=== PATIENT | female | born 1955 | race Caucasian/White ===

== ENCOUNTER → 2019-01-24 11:25 | Outpatient (CLI) | payer OTHER, SELFPAY ==
[2019-01-24 12:50] LABS: Absolute Lymphocyte Count 1.94 X10^3/uL (0.83-4.51); Absolute Neutrophil Count 2.5 X10^3/uL (2.0-7.7); Basophil# 0.02 X10^3/uL; Basophil% 0.4 % (0-1); Eosinophil# 0.21 X10^3/uL; Eosinophils% 4.1 % (0-5); Hematocrit 39.8 % (37-47); Hemoglobin 13.2 g/dL (12.0-15.0); Lymphocyte # 1.94 X10^3/ul (4.0); Lymphocyte % 38.1 % (19-41); Mean Corp Hgb Conc 33.2 g/dL (32-36); Mean Corpuscular Hgb 29.1 pg (27.0-32.0); Mean Corpuscular Volume 87.7 fL (81-99); Mean Platelet Vol. 9.5 fl (6.2-12.0); Monocyte# 0.41 X10^3/uL; Monocyte% 8.1 % (0-10); NRBC Flagged by Analyzer 0 % (0-5); Neutrophil % 49.1 % (47-70); Platelet Count 246 K/mm3 (150-450); RBC Distribution Width CV 11.6 % (11.6-14.6); RBC Distribution Width SD 37.1 fl (35.1-43.9); Red Blood Count 4.54 M/mm3 (4.2-5.4); White Blood Count 5.1 K/mm3 (4.4-11.0)
[2019-01-24 12:56] LABS: ALB/GLOB Ratio 0.9 RATIO (0.9-2.4); AST(SGOT) 19 U/L (15-37); Alanine Aminotransfer ALT/SGPT 29 U/L (13-56); Albumin, Serum 3.8 g/dL (3.2-5.0); Alkaline Phosphatase 90 U/L (45-117); Anion Gap 9 (5-15); BUN 16 mg/dL (7-18); BUN/Creat Ratio 23.7 RATIO (10-20); Calcium,Total 8.9 mg/dL (8.5-10.1); Chloride 106 mmol/L (98-107); Creatinine, Serum 0.67 mg/dL (0.55-1.02); EST Glomerular Filtration Rate 93 mL/min (>60); Est Glom Filt Rate - Afr Amer 113 mL/min (>60); Globulin 4.1 g/dL (2.2-4.2); Glucose 90 mg/dL (74-106); Potassium 4.1 mmol/L (3.5-5.1); Protein, Total 7.9 g/dL (6.4-8.2); Sodium Level 140 mmol/L (136-145); T4 Free Direct 1.09 ng/dL (0.76-1.46)
[2019-01-24 22:06] LABS: Vitamin D,25 Hydroxy 28.7 ng/mL (29.95-100.01)
== END ==
PROVIDERS: Family Provider Family Medicine; PCP Family Medicine; Visit Provider Family Medicine
DX: E03.9 Hypothyroidism, unspecified (principal); E78.5 Hyperlipidemia, unspecified; E55.9 Vitamin D deficiency, unspecified; E04.2 Nontoxic multinodular goiter
CPT/HCPCS: 36415; 80053; 82306; 84439; 84443; 85025

== ENCOUNTER → 2019-03-07 16:15 | Outpatient (CLI) | payer OTHER, SELFPAY ==
--- NOTE | 2019-03-07 16:22 | RAD_ITS ---
STUDY: X-RAY - LEFT FOOT CLINICAL: Female, 63 years old. Pain at the dorsum of the foot TECHNIQUE: 3 view(s) of the foot. COMPARISON: None. FINDINGS: There is a nondisplaced fracture involving the midshaft of the third metatarsal bone with periosteal reaction. RAD/Foot min 3 Views IMPRESSION: A healing fracture (probably stress) involving the mid shaft of the third metatarsal bone Electronically Signed: Berry Chavarria MD at 7:55 EDT Tel , Service support ,
== END ==
PROVIDERS: Family Provider Family Medicine; PCP Family Medicine
DX: M19.079 Primary osteoarthritis, unspecified ankle and foot (principal); Z82.61 Family history of arthritis; Z82.69 Family history of other diseases of the musculoskeletal system and connective tissue
CPT/HCPCS: 73630

== ENCOUNTER 2019-12-30 14:35 | Emergency (ER) | payer OTHER, SELFPAY ==
[2019-12-30 14:37] VITALS: BP 138/87; PULSE 89; RESP 16; TEMP 36.7; O2SAT 95; BMI 25.8
--- NOTE | 2019-12-30 15:04 | ED.DCSUM_ITS ---
History of Present Illness Chief Complaint: Lower Extremity Injury Informant: Patient Narrative: Patient is a 64-year-old female who presents to the emergency department for right leg swelling and bruising. She first noticed this in the past 2 to 3 days ago. She states that she has been being more active the past few days but does not remember injuring or striking the leg. She was concerned for DVT. She denies having any chest pain or shortness of breath. No history of blood clots before in the past. No family history of blood clots. There is one spot that is point tender but otherwise the calf is not sore. She does have chronic peripheral neuropathy which has not changed in her lower extremities. She denies any recent periods of prolonged immobility. No recent surgeries. He is not on any anticoagulation. She does have a 15-year distant history of breast cancer and is in remission. He denies smoking, drinking or drug use. She denies any systemic symptoms including fever/chills or nausea/vomiting. Past Medical History - Allergies and Home Meds Allergies/Adverse Reactions: Allergies DUST Allergy (Uncoded 01/13/18 09:57) Shortness of breath MOLD Allergy (Uncoded 01/13/18 09:57) Shortness of breath TREES Allergy (Uncoded 01/13/18 09:57) Shortness of breath Primary Care Physician: Torey Finch MD [Primary Care Provider] - Prior records reviewed: Yes Past Medical History: - - Hypothyroidism, history of breast cancer Surgical History: appendectomy, - - Breast lumpectomy Smoking Status: Never smoker Alcohol: None Drugs: None - Family History Maternal Family History: Family History (Last Updated 01/13/18 @ 09:29 by Ning Louis) Other Arthritis Cancer Crohns disease Diabetes Heart disease High cholesterol Hx of stroke associated with blood clotting tendency Hypertension Kidney disease Family History: Reports: Hypertension Paternal Family History: Family History (Last Reviewed 12/30/19 @ 15:[address] Ismael Benson DO) Other Arthritis Cancer Crohns disease Diabetes Heart disease High cholesterol Hx of stroke associated with blood clotting tendency Hypertension Kidney disease Family History: Reports: Cancer, Diabetes, Hypertension Sibling Family History: Family History (Last Reviewed 12/30/19 @ 15:[address] Ismael Benson DO) Other Arthritis Cancer Crohns disease Diabetes Heart disease High cholesterol Hx of stroke associated with blood clotting tendency Hypertension Kidney disease Family History: Reports: Heart Disease Review of Systems All systems negative except as indicated General: Denies: Chills, Fever, Sweats Eyes: Denies: Visual changes - bilaterally, Diplopia ENT: Denies: Rhinorrhea, Sore throat Cardiovascular: Denies: Chest pain, Palpitations Respiratory: Denies: Dyspnea, Cough, Dyspnea on exertion Gastrointestinal: Denies: Abdominal pain, Nausea, Vomiting, Diarrhea, Melena, Hematochezia Genitourinary: Denies: Dysuria, Hematuria, Frequency Musculoskeletal: Reports: Swelling - Right lower extremity. Denies: Back pain, Extremity Pain Skin: Reports: - - Bruising to posterior right calf. Denies: Rash, Wounds Neurological: Denies: Headache, Weakness, Numbness Physical Exam Vital Signs/Narrative: Vital Signs Temp Pulse Resp BP Pulse Ox 12/30/19 14:37 98.1 F 89 16 138/87 H 95 Inital Vital Signs reviewed: Yes General: Well nourished, Well developed, No Acute Distress Head: Normocephalic, Atraumatic Eyes: Perrl, EOMI ENT: Moist mucous membranes, No rhinorrhea Neck: Supple, Nontender Cardiovascular: Regular rate, Regular rhythm, No murmurs Respiratory: No distress, CTA bilaterally, Chest nontender Abdomen: Soft, Nontender, Nondistended Back: Nontender, Normal Inspection Extremities: Edema - Mild swelling below the knee on the right side. There is ecchymosis to the back of the right calf that extends up to the right popliteal fossa. No significant tenderness. Compartments are soft. 2+ DP pulse. Sensation intact. Skin: Normal color, No rash Neurological: Alert, Oriented x3, Cranial nerves II-XII grossly intact, Normal Strength, Normal Sensation Psychological: Normal affect, Normal Mood Diagnostic/Tx/Re-eval - Medical Decision Making Patient presents to the emergency department for right calf pain, swelling and ecchymosis. She was concerned for blood clot. Unfortunately vascular ultrasound is not well at this moment. She does not have any symptoms of p ulmonary embolism. No evidence of compartment syndrome. There is bruising and I believe the patient could have a small hematoma to the back of her leg. Because of this I do not want to give a dose of Lovenox to hold her over until she get the ultrasound tomorrow morning. I did discuss this with her, she is in agreement with this. No evidence of cellulitis. I did discuss strict return precautions for which to return to the emerge department including developing any chest pain or shortness of breath. They will contact her tomorrow to schedule this. She understands to call the number on the provided sheet that was given to her if she does not hear from them tomorrow morning. At this time will discharge home in stable condition. ED Disposition - Plan for ED Patient: Disposition: Home or Assisted Living Diagnosis: Right leg swelling, Ecchymosis Instructions: ED Peripheral Edema, Unilateral Referrals: Torey Finch MD [Primary Care Provider] - As soon as possible Additional Instructions: Ultrasound has been ordered for tomorrow. They will contact you for the appointment. If you do not hear from them by tomorrow morning please call the number on the provided list.
[2019-12-30 15:21] VITALS: RESP 18
== END 2019-12-30 15:21 | disposition home or self-care (01) ==
PROVIDERS: Emergency Provider Emergency Medicine; PCP Family Medicine
DX: M79.89 Other specified soft tissue disorders (principal); R23.3 Spontaneous ecchymoses; E03.9 Hypothyroidism, unspecified; G62.9 Polyneuropathy, unspecified; Z82.49 Family history of ischemic heart disease and other diseases of the circulatory system; Z85.3 Personal history of malignant neoplasm of breast
CPT/HCPCS: 99282

== ENCOUNTER → 2019-12-31 10:25 | Outpatient (CLI) | payer OTHER, SELFPAY ==
[2019-12-30 14:37] VITALS: BMI 25.8
--- NOTE | 2019-12-31 10:30 | VDLE_ITS ---
Reason For Study: Swelling RIGHT LEFT GSV is normal. CFV is compressible, spontaneous, phasic, CFV is compressible, spontaneous, phasic, competent, and demonstrates normal competent and demonstrates normal augmentation. augmentation. FV is compressible, spontaneous, phasic, competent and demonstrates normal augmentation. POP V is compressible, spontaneous, phasic, competent and demonstrates normal augmentation. T/P Trunk is compressible. PTV is compressible. RT PerV is compressible. Large nonvascularized structures noted in the proximal and mid calf. Procedure Exam performed in department. A preliminary report was called and/or faxed to [facility]. Pt seen 12/31/2019 as next day ED. Interpretation Summary There is no evidence of right lower extremity deep vein thrombosis. Right great saphenous vein appears patent and compressible segmentally. Large cystic nonvascular structure right proximal and mid calf suspicious for Weeks's cyst clinical correlation would be indicated Patent and compressible left common femoral vein Ordering Physician: Ismael Benson Referring Physician: Torey Finch Performed By: Kaylen Lord RVT
== END ==
PROVIDERS: PCP Family Medicine; Visit Provider Emergency Medicine
DX: M79.89 Other specified soft tissue disorders (principal)
CPT/HCPCS: 93971

== ENCOUNTER → 2020-05-17 14:14 | Outpatient (CLI) | payer OTHER, SELFPAY ==
--- NOTE | 2020-05-17 14:18 | CT_ITS ---
STUDY: CARDIAC CALCIUM SCORING - CT CHEST REASON FOR EXAM: Female, 65 years old. FAMILY HX CO-CALCIUM SCORING, OVER READ ONLY RADIATION DOSAGE (If Supplied By Facility): CTDIvol = ( 12.19 ) mGy, DLP = ( 219.42 ) mGycm TECHNIQUE: Axial non-enhanced images were acquired through the heart for the sole purpose of measuring coronary artery calcium. Individualized dose optimization techniques were used for this CT. COMPARISON: None. FINDINGS: Visualized surrounding anatomy: Normal. Left Main Coronary Artery: 0 Left Anterior Descending Artery: 27 Left Circumflex Artery: 1.19 Right Coronary Artery: 151 Other: Incidental findings include aortic valve calcification and moderate size hiatal hernia Total Calcium Score: 179 CT/Limited Chest CT w/CCTA IMPRESSION: A Calcium Score of 179 places the patient in the approximate 75-90 percentile, based on the PHILLIP data calculator. Please go to: [email or web address]-nhlbi.org/Calcium/input.aspx , for a description of the calculator. Electronically Signed: Noam Castano MD at 20:38 EST , Service support ,
[2020-05-17 14:25] VITALS: BP 115/68; PULSE 69; RESP 14; O2SAT 95; BMI 25.9
--- NOTE | 2020-05-17 17:17 | CA.SCORE ---
Calcium Scoring Date of Study:: 05/17/20 Coronary Calcium Scoring: High-resolution Computed Tomographic imaging of the chest was performed on 05/17/2020 with particular attention paid to the coronary arteries. Images from the examination were analyzed for the presence and extent of coronary artery calcification , using coronary calcium quantification software. The patient tolerated the procedure well and there were no complications. The results of the coronary calcification analysis are provided below. - Findings Left Main (LM): 0 Left Anterior Descending (LAD): 27 Left Circumflex (LCX): 1.19 Right Coronary Artery (RCA): 151 Total Agatston Score: 179.19 Percentile Ranking: Percentile ranking: Based upon prepublished reference data between 75% and 90% of patients of the same gender and similar age had the same or lower scores. Calcium Scoring Interpretation: 0 No identifiable atherosclerotic plaque. Very low cardiovascular disease risk. <5% chance of presence coronary artery disease A Negative Examination 1-10 Minimal Plaque burden. Significant coronary artery disease very unlikely. 11-100 Mild plaque burden. Likely mild or minimal coronary atherosclerosis. 101-400 Moderate plaque burden Moderate non-obstructive coronary artery disease highly likely. Over 400 Extensive plaque burden. High likelihood of at least one significant coronary stenosis (>50% diameter) Calcium Score: 101 - 400 Moderate non-obstructive coronary artery disease highly like - New cardiovascular risk factor evaluation as deemed appropriate.
== END ==
PROVIDERS: PCP Family Medicine; Referring Provider Internal Medicine; Visit Provider Internal Medicine
DX: Z82.49 Family history of ischemic heart disease and other diseases of the circulatory system (principal)
CPT/HCPCS: 75571; 76380

== ENCOUNTER → 2020-06-01 06:08 | Outpatient (CLI) | payer OTHER, SELFPAY ==
[2020-05-17 14:25] VITALS: BMI 25.9
--- NOTE | 2020-06-01 08:48 | STRESSREP ---
Stress Test Report Exercise myocardial perfusion stress test. 65-year-old lady with a history of EKG changes. Medications Lipitor Lexapro Synthroid. Stress protocol: Resting EKG demonstrates normal sinus rhythm with a rate of 73 bpm normal intervals are noted resting blood pressure is 124/70 mmHg. The patient exercised according to regular Musa protocol for total duration of 9 minutes patient completing stage III of the Musa protocol the maximum heart rate attained was 151 bpm which was 98% of maximum predicted heart rate the maximum workload was 10.1 metabolic equivalents. At rest there were no ST or T wave changes noted to suggest ischemia at peak exercise upsloping ST changes only were noted with no meet the criteria for ischemia. No clinical angina was noted the test was terminated due to the target heart rate being achieved. The resting blood pressure was 124/70 with a peak blood pressure 140/62 mmHg. Myocardial perfusion protocol. 11.9 mCi of technetium 99m sestamibi was injected at rest. The patient exercised according to regular Musa protocol for a total duration of 9 minutes and at peak exercise 34.2 mCi of technetium 99m sestamibi was injected stress images were obtained stress and rest images were reconstructed and compared in the short axis vertical and horizontal long axis. Gated images were also obtained Perfusion SPECT analysis: Review of the stress images demonstrate normal uptake of tracer noted in all areas of the myocardium there is minimal apical striping noted. The resting images demonstrate a similar pattern. No obvious ischemia is noted. Gated SPECT analysis: The gated ejection fraction is 72%. Conclusion: Normal exercise myocardial perfusion stress test at a high workload. Preserved ejection fraction. No clinical angina.
== END ==
PROVIDERS: PCP Family Medicine; Referring Provider Internal Medicine; Visit Provider Internal Medicine
DX: R94.30 Abnormal result of cardiovascular function study, unspecified (principal)
CPT/HCPCS: 78452; 93017; A9500; A4216

== ENCOUNTER → 2020-06-28 13:34 | Outpatient (CLI) | payer OTHER, SELFPAY ==
[2020-06-27 08:22] VITALS: BMI 27.9
--- NOTE | 2020-06-28 13:36 | ECHODONC_ITS ---
Reason For Study: HTN Procedure This was a 2D Doppler, Color Flow transthoracic echocardiogram. Myocardial strain analysis was performed in this exam to aid in the assessment of cardiac function. Exam performed in department. Left Ventricle Normal LV size. Left ventricular systolic function is normal. The estimated ejection fraction is 60 %. No regional wall motion abnormalities noted. Right Ventricle Normal RV size. Normal systolic function. Atria Normal left atrium. Normal right atrium. Hypermobile atrial septum. Patent foramen ovale. Mitral Valve Normal mitral valve. Trivial mitral valve insufficiency. Tricuspid Valve Normal tricuspid valve. Aortic Valve Normal aortic valve. Trisinus/trileaflet aortic valve. Pulmonic Valve Normal pulmonic valve. Great Vessels Normal aortic root. The pulmonary artery is normal size. Normal inferior vena cava. Pericardium/Pleural No pericardial effusion. Medication Performed a rapid injection of agitated mix of 9 cc saline and 1cc air to assess for atrial septal defect. MMode/2D Measurements & Calculations LVIDd: 4.7 cm IVSd: 1.0 cm Ao root diam: 3.0 cm LVIDs: 3.3 cm LVPWd: 0.81 cm RVDd: 3.6 cm FS: 30.1 % LAV(MOD-bp): 36.4 ml LA A4 area: 13.7 cm2 LA dimension(2D): 3.0 cm LAV(MOD-bp) Indexed: 19.3 ml/m2 LAV(MOD-sp2): 37.2 ml LAV(MOD-sp4): 33.4 ml RA A4 area: 12.1 cm2 Doppler Measurements & Calculations MV E max pepe: 52.5 cm/sec Lat Peak E' Pepe: 9.2 cm/sec Med Peak E' Pepe: 6.3 cm/sec MV A max pepe: 76.2 cm/sec E/E' lat: 5.7 E/E' med: 8.4 MV E/A: 0.69 Ao V2 max: 196.6 cm/sec LV V1 max: 175.4 cm/sec PA V2 max: 104.8 cm/sec Ao max P.5 mmHg LV V1 max P.3 mmHg Ao V2 mean: 149.0 cm/sec Ao mean P.5 mmHg Ao V2 VTI: 35.7 cm TR max pepe: 266.7 cm/sec TR max P.5 mmHg Interpretation Summary Hypermobile atrial septum. Normal LV size. Left ventricular systolic function is normal. The estimated ejection fraction is 60 %. No regional wall motion abnormalities noted. Patent foramen ovale. The global longitudinal strain is normal. The global longitudinal strain = -19.1 % (normal). Ordering Physician: Sammy Venegas Referring Physician: Rosaura Hintno Performed By: Lesvia Tenorio, RDCS, RVT
== END ==
PROVIDERS: PCP Internal Medicine; Visit Provider Internal Medicine Cardiovascular Disease
DX: I34.0 Nonrheumatic mitral (valve) insufficiency (principal); I10 Essential (primary) hypertension
CPT/HCPCS: 93306; 93356; A4216

== ENCOUNTER → 2020-11-13 14:39 | Outpatient (CLI) | payer OTHER, SELFPAY ==
[2020-06-27 08:22] VITALS: BMI 27.9
--- NOTE | 2020-11-13 14:55 | BD_ITS ---
STUDY: DUAL ENERGY X-RAY ABSORPTIOMETRY / DXA REASON FOR EXAM: Female, 65 years old. Postmenopausal TECHNIQUE: Bone Mineral Density (BMD) measurements of lumbar spine and bilateral hips were obtained. COMPARISON: Comparison is made with prior study dated 05/22/2015. FINDINGS: Lumbar Spine (L1-L4): g/cm2 (1.131) / T-score (-0.3) / Z-score (1.3) Left Femur Total: g/cm2 (1.013) / T-score (0.0) / Z-score (1.4) Left Femoral Neck: g/cm2 (0.942) / T-score (-0.7) / Z-score (0.9) Right Femur Total: g/cm2 (0.939) / T-score (-0.5) / Z-score (0.8) Right Femoral Neck: g/cm2 (0.914) / T-score (-0.9) / Z-score (0.7) The T-Scores on the most recent prior examination were: Lumbar Spine (L1-L4): improvement by 0.2% Left Femoral Neck: Decreased by 3.6% Right Femoral Neck: Decreased by 7.1% BD/Dexa Bone Density Study IMPRESSION: The patient is considered normal as outlined below according to World C[employer] Organization (WHO) criteria with a low fracture risk. There has been worsening since the previous examination. Reference Information: The T-score is the number of standard deviations above or below the standard which is normal for young adults at their peak bone mineral density. The World Health Organization (WHO) interprets the T-scores as follows: Above -1 Normal bone density Between -1 and -2.5 Osteopenia Equal to / or below -2.5 Osteoporosis As a practical clinical guideline, osteopenia may be graded as follows: Mild -1 through -1.5 Moderate -1.6 through -2.0 Severe -2.1 through -2.4 The Z-score is the number of standard deviations above or below age-matched controls. A Z-score of less than -1.5 would be considered abnormal. References: 1. NIH Osteoporosis and Related Bone Diseases http://www.osteo.org 2. International Society for Clinical Densitometry http://www.iscd.org 3. National Osteoporosis Foundation http://www.nof.org Electronically Signed: Jagdish Simpson MD at 12:56 EDT , Service support ,
== END ==
PROVIDERS: PCP Internal Medicine; Referring Provider Internal Medicine; Visit Provider Internal Medicine
DX: Z78.0 Asymptomatic menopausal state (principal)
CPT/HCPCS: 77080

== ENCOUNTER 2021-07-24 07:05 | Outpatient (CLI) | payer OTHER, SELFPAY ==
--- NOTE | 2021-07-24 18:05 | STRESSREP_ITS ---
Stress Test Report Exercise myocardial perfusion stress test. 66-year-old lady with a history of coronary artery disease elevated calcium score. Stress protocol: Resting EKG demonstrates normal sinus rhythm with a rate of 71 bpm normal intervals are noted resting blood pressure is 124/88 mmHg. The patient exercised according to regular Musa protocol for total duration of 6 minutes the maximum heart rate attained was 157 bpm which was 103% of max impact at heart rate the maximum workload was 7 metabolic equivalents. At rest there were no ST or T wave changes noted to suggest ischemia and at peak exercise upsloping ST changes were noted with did not meet the criteria for ischemia. No clinical angina was noted. The peak blood pressure was 182/84 mmHg. The test was terminated due to shortness of breath. Myocardial perfusion protocol. 10.8 mCi of technetium 99m sestamibi was injected at rest. The patient exercised according to regular Musa protocol for total duration of 6 minutes. At peak exercise 33.1 mCi of technetium 99m sestamibi was injected stress images were obtained stress and rest images were reconstructed and compared in the kylah rt axis vertical long and horizontal long axis. Gated images were also obtained. Perfusion SPECT analysis: Review of the stress images demonstrate normal uptake of tracer noted in all areas of the myocardium. The resting images similarly demonstrate normal uptake of tracer noted in all areas of the myocardium. No areas of reversibility are noted to suggest ischemia and no previous infarct is noted. Gated SPECT analysis: The gated ejection fraction is 70%. Conclusion: Normal exercise myocardial perfusion stress test with no evidence of ischemia at a moderate workload. Preserved ejection fraction.
== END 2021-07-24 23:59 | disposition short-term general hospital (02) ==
PROVIDERS: PCP Internal Medicine; Referring Provider Internal Medicine Cardiovascular Disease; Visit Provider Internal Medicine Cardiovascular Disease
DX: I25.10 Atherosclerotic heart disease of native coronary artery without angina pectoris (principal)
CPT/HCPCS: 78452; 93017; A9500

== ENCOUNTER → 2021-07-26 | Outpatient (CLI) | payer OTHER, SELFPAY ==
--- NOTE | 2021-07-26 07:56 | ECHODONC_ITS ---
Version 3 Reason For Study: CAD/ASHD Procedure This was a 2D Doppler, Color Flow transthoracic echocardiogram. Myocardial strain analysis was performed in this exam to aid in the assessment of cardiac function. Exam performed in department. Left Ventricle Normal LV size. Left ventricular systolic function is normal. The estimated ejection fraction is 60 %. Stage 1 diastolic dysfunction. No regional wall motion abnormalities noted. Right Ventricle Normal RV size. Normal systolic function. Atria Normal left atrium. Normal right atrium. Mitral Valve Normal mitral valve. Mild (1+) eccentric mitral valve insufficiency. Tricuspid Valve Normal tricuspid valve. Mild (1+) tricuspid valve insufficiency. Pulmonary artery systolic pressure is 30 mmHg. Aortic Valve Normal aortic valve. Trisinus/trileaflet aortic valve. Trivial aortic valve insufficiency. Pulmonic Valve Normal pulmonic valve. Great Vessels Normal aortic root. The pulmonary artery is normal size. Normal inferior vena cava. Pericardium/Pleural No pericardial effusion. MMode/2D Measurements & Calculations LVIDd: 4.2 cm IVSd: 0.74 cm Ao root diam: 3.4 cm LVIDs: 2.7 cm LVPWd: 0.98 cm LA dimension: 3.2 cm RVDd: 3.9 cm FS: 36.3 % LAV(MOD-bp): 39.2 ml LA A4 area: 13.6 cm2 RA A4 area: 13.0 cm2 LAV(MOD-bp) Indexed: 21.5 ml/m2 LAV(MOD-sp2): 45.9 ml LAV(MOD-sp4): 30.9 ml Time Measurements MV dec time: 0.25 sec Doppler Measurements & Calculations MV E max pepe: 60.2 cm/sec Lat Peak E' Pepe: 9.6 cm/sec Med Peak E' Pepe: 7.0 cm/sec MV A max pepe: 86.1 cm/sec E/E' lat: 6.3 E/E' med: 8.6 MV E/A: 0.70 MV V2 max: 80.0 cm/sec MV P1/2t max pepe: 55.1 cm/sec Ao V2 max: 137.0 cm/sec MV max P.6 mmHg MV P1/2t: 93.4 msec Ao max P.5 mmHg MV V2 mean: 45.5 cm/sec MV dec slope: 172.7 cm/sec2 MV mean P.97 mmHg MVA(P1/2t): 2.4 cm2 MV V2 VTI: 20.5 cm LV V1 max: 128.3 cm/sec PA V2 max: 106.9 cm/sec TR max pepe: 249.9 cm/sec LV V1 max P.6 mmHg TR max P.0 mmHg ECHO/ONC Echo Complete Interpretation Summary Normal LV size. Left ventricular systolic function is normal. The estimated ejection fraction is 60 %. Stage 1 diastolic dysfunction. Pulmonary artery systolic pressure is 30 mmHg. The global longitudinal strain is normal. The global longitudinal strain = -17. 8 % (normal). Ordering Physician: Sammy Venegas Referring Physician: Rosaura Hinton M.D. Performed By: Emmett Marcum, [facility]
== END | disposition home or self-care (01) ==
PROVIDERS: PCP Internal Medicine; Referring Provider Internal Medicine Cardiovascular Disease; Visit Provider Internal Medicine Cardiovascular Disease
DX: I34.0 Nonrheumatic mitral (valve) insufficiency (principal)
CPT/HCPCS: 93306; 93356; A4216

== ENCOUNTER 2022-02-17 16:46 | Emergency (ER) | payer OTHER, SELFPAY ==
[2022-02-17 16:48] VITALS: BP 144/94; PULSE 81; RESP 16; TEMP 36.3; O2SAT 98; BMI 25.3
[2022-02-17] MEDS: oxyCODONE 5 MG Tablet PO (17:20)
--- NOTE | 2022-02-17 17:21 | ED.VIS.LOWEX ---
HPI History of Present Illness Chief Complaint: Lower Extremity Injury Informant: patient Narrative Narrative: Patient was wearing gym shoes in caught her toe on the carpet at her office. She fell onto her left knee. She states she did catch herself on her hands but her hands and arms do not hurt at all. She never hit her head. She is not on blood thinners. She has isolated left knee pain. No hip ankle or other areas of pain. It hurts a lot to move it or put weight. She took Tylenol but its not really easing the pain with motion. She does have a history of arthritis and is on Celebrex. She does take baby aspirin but no other anticoagulation. [facility] Medical History (Updated 02/17/22 @ 18:[address] Lee Alejo MD) Anxiety and depression Arthritis Asthma Environmental allergies GERD (gastroesophageal reflux disease) History of back problems History of Papanicolaou smear of cervix Hx of breast cancer Hx of cataract Hx of mammogram Hx of thyroid disease Hyperlipidemia Hypothyroidism (acquired) Neuropathy of both feet Osteoarthritis Skin cancer Home Medications albuterol sulfate 90 mcg/actuation aerosol inhaler 1 puff inhalation Q4H PRN PRN Shortness Of Breath 04/30/14 [History Last Taken Unknown] atorvastatin 20 mg tablet 20 mg PO QHS 04/30/14 [History Last Taken Unknown] fluticasone 250 mcg-salmeterol 50 mcg/dose blistr powdr for inhalation 1 puff inhalation BID ##1 05/01/14 [Rx Last Taken Unknown] escitalopram oxalate 20 mg tablet 20 mg PO DAILY 12/30/19 [History Last Taken Unknown] aspirin 81 mg tablet,delayed release (Adult Aspirin Regimen) 81 mg PO DAILY 06/11/20 [History Last Taken Unknown] omeprazole 20 mg capsule,delayed release 20 mg PO DAILY 06/11/20 [History Last Taken Unknown] cholecalciferol (vitamin D3) 125 mcg (5,000 unit) capsule 125 mcg PO DAILY 06/27/20 [History Last Taken Unknown] levothyroxine 112 mcg tablet 112 mcg PO DAILY 06/27/20 [History Last Taken Unknown] allopurinol 300 mg tablet 300 mg PO DAILY 06/25/21 [History Last Taken Unknown] celecoxib 200 mg capsule (Celebrex) 200 mg PO DAILY 06/25/21 [History Last Taken Unknown] oxycodone-acetaminophen 5 mg-325 mg tablet (Percocet) 1 tab PO Q6H PRN pain 3 days #12 tabs 02/17/22 [Rx Last Taken Unknown] Allergy/AdvReac Type Severity Reaction Status Date / Time house dust Allergy Severe Shortness Verified 02/17/22 16:49 of breath mold Allergy Severe Shortness Verified 02/17/22 16:49 of breath tree and shrub pollen Allergy Severe Shortness Verified 02/17/22 16:49 of breath Family History Brother Myocardial infarction, Onset Age: 40 Brother Myocardial infarction, Onset Age: 40 Other Arthritis Cancer Crohns disease Diabetes Heart disease High cholesterol Hx of stroke associated with blood clotting tendency Hypertension Kidney disease Surgical History History of appendectomy History of bilateral breast reduction surgery History of lumpectomy Hx of colonoscopy Social History Smoking Status: Never smoker caffeine: Yes Type: tea Number of servings: 3 ROS ROS ED Constitutional Constitutional ED: Denies chills or fever(s) Eyes Eyes: Denies blurry vision Cardiovascular Cardiovascular: Denies chest pain Respiratory/Chest Respiratory/Chest: Denies cough or dyspnea Gastrointestinal Gastrointestinal: Denies nausea or vomiting Musculoskeletal Musculoskeletal: Reports arthralgias and other Details: See history of present illness. ; Denies back pain or neck pain Integumentary Denies rash Neurologic Neurologic: Denies headache(s), paresthesias or weakness Hematologic/Lymphatic Hematologic/Lymphatic: Denies easy bleeding or easy bruising Allergic/Immunologic Allergic/Immunologic ED: Denies urticaria EXAM Physical Exam Const Vital Signs: 02/17/22 16:48 Temperature 97.3 F L Temperature Source Temporal Pulse Rate 81 Respiratory Rate 16 Blood Pressure 144/94 H Blood Pressure Mean 110 Pulse Ox 98 Oxygen Delivery Method Room Air Positive well nourished General Appearance ED: NAD HEENT normocephalic and atraumatic Neck full ROM Chest Wall inspection of chest normal Resp normal respiratory effort Cardio regular rate GI non-tender Back/Spine no CVA tenderness Extremity Negative for normal to inspection Extremity Narrative: Patient does have swelling and effusion in the left knee. I am suspicious that there may be separation of the patella. I did not put the knee through range of motion or check extensor mechanism because of this concern. No proximal or distal tenderness. Neuro oriented x3 Sensorium / Orientation: alert Psych mental status grossly normal Skin Skin Narrative: Very mild abrasion anterior left knee MDM MDM MDM Narrative Medical decision making narrative: X-rays of the left knee looked at by me and radiology showing vertical fracture of the patella with joint effusion. Extensor mechanism is intact on recheck. She is feeling better. We discussed close follow-up. We discussed knee immobilizer nonweightbearing walker and reasons to return. Radiography Diagnostic Testing: Clinical Impression(s) from Imaging Studies Knee X-Ray 02/17/22 17:35 IMPRESSION: Nondisplaced vertical fracture of the patella with large joint effusion. Electronically Signed: Nicola Gutierrez DO at 17:55 EDT Reading Location ID and State: [address] [place] [address] Tel [phone], Service support , Discharge Plan Triage Chief Complaint: Lower Extremity Injury ED Provider: Lee Alejo Dx/Rx/DC Orders Clinical Impression: Fall from other slipping, tripping, or stumbling, Closed fracture of left patella Instructions: ED Patella Fracture Prescriptions: New oxycodone-acetaminophen [Percocet] 5-325 mg tablet 1 tab PO Q6H PRN (Reason: pain) 3 Days Qty: 12 0RF No Action omeprazole 20 mg capsule,delayed release(DR/EC) 20 mg PO DAILY aspirin [Adult Aspirin Regimen] 81 mg tablet,delayed release (DR/EC) 81 mg PO DAILY cholecalciferol (vitamin D3) 125 mcg (5,000 unit) capsule 125 mcg PO DAILY levothyroxine 112 mcg tablet 112 mcg PO DAILY Label Comments: TAKE 1 TABLET BY MOUTH 6 DAYS A WEEK celecoxib [Celebrex] 200 mg capsule 200 mg PO DAILY allopurinol 300 mg tablet 300 mg PO DAILY atorvastatin 20 MG tablet 20 mg PO QHS Label Comments: cholesterol albuterol sulfate 1 PUFF inhaler 1 puff INHALATION Q4H PRN PRN (Reason: Shortness Of Breath) Label Comments: breathing fluticasone propion-salmeterol 1 PUFF inhaler 1 puff INHALATION BID Qty: 1 0RF Rx Instructions: rinse out mouth after use escitalopram oxalate 20 MG tablet 20 mg PO DAILY Primary Care Provider: Rosaura Hinton Referrals: oRsaura Hinton DO [Primary Care Provider] - Josh Hwang DO [Med Staff - Active Staff] - 3-5 Days Disposition Disposition: Home, Self Care
--- NOTE | 2022-02-17 17:35 | RAD_ITS ---
STUDY: X-RAY - LEFT KNEE REASON FOR EXAM: Female, 66 years old. Trip and fall onto left knee. Swelling. TECHNIQUE: 4 view(s) of the knee. COMPARISON: None. FINDINGS: There is a linear lucency in the region of the intercondylar notch on the AP film which is noted to be a vertical fracture through the patella. The proximal femur is intact. Normal visualized proximal tibia and fibula. Normal proximal tibiofibular articulation. There is mild degenerative arthrosis of the medial femorotibial compartment. There is mild degenerative arthrosis of the lateral femorotibial compartment. There is mild degenerative arthrosis of the patellofemoral articulation. There is a moderate volume joint effusion. The soft tissue structures are unremarkable. RAD/Knee 4 or More Views IMPRESSION: Nondisplaced vertical fracture of the patella with large joint effusion. Electronically Signed: Nicola Gutierrez DO at 17:55 EDT Reading Location ID and State: [address] [facility] Tel [phone], Service support ,
== END 2022-02-17 19:44 | disposition home or self-care (01) ==
PROVIDERS: Emergency Provider Emergency Medicine; PCP Internal Medicine; Visit Provider Emergency Medicine
DX: S82.092A Other fracture of left patella, initial encounter for closed fracture (principal); E78.5 Hyperlipidemia, unspecified; M25.462 Effusion, left knee; F41.9 Anxiety disorder, unspecified; F32.A Depression, unspecified; J45.909 Unspecified asthma, uncomplicated; M19.90 Unspecified osteoarthritis, unspecified site; Z79.82 Long term (current) use of aspirin; Z79.899 Other long term (current) drug therapy; W01.0XXA Fall on same level from slipping, tripping and stumbling without subsequent striking against object, initial encounter
CPT/HCPCS: 73564; 99285

== ENCOUNTER → 2022-04-25 | Outpatient (CLI) | payer OTHER, SELFPAY ==
--- NOTE | 2022-04-25 09:30 | RAD_ITS ---
STUDY: X-RAY - RIGHT WRIST REASON FOR EXAM: Female, 67 years old. WRIST STRAIN TECHNIQUE: 3 view(s) of the wrist were obtained. COMPARISON: None. FINDINGS: Mild osteoarthritis lateral carpus. Mid and medial carpus intact. Soft tissues normal. RAD/Wrist min 3 Views IMPRESSION: Mild osteoarthritis lateral carpus. Electronically Signed: Rodri Moreno MD, LULI at 10:42 EDT ,
== END | disposition home or self-care (01) ==
LOC: MTRAD 09:27
PROVIDERS: PCP Internal Medicine
DX: S66.911A Strain of unspecified muscle, fascia and tendon at wrist and hand level, right hand, initial encounter (principal)
CPT/HCPCS: 73110

== ENCOUNTER → 2022-07-28 | Outpatient (CLI) | payer OTHER, SELFPAY ==
[2022-07-28 13:16] VITALS: BP 111/74; PULSE 72; RESP 16; TEMP 37.3; O2SAT 97; BMI 25.5
--- NOTE | 2022-07-28 13:20 | CT_ITS ---
INDICATION: CP EXAMINATION: CT CHEST WITHOUT CONTRAST - CT Chest W/O Contrast Injection TECHNIQUE: Helically acquired images were obtained of the chest. A radiation dose optimization technique was used for this scan. IV Contrast dosage and agent: None. COMPARISON: None. FINDINGS: LUNGS, PLEURA AND LARGE AIRWAYS: Increased markings at the right lung base with areas of confluence suggestive of a scarring. Mild scarring at the left lung base as well. No pleural effusion or thickening. No pneumothorax. THYROID: No thyroid lesions. HEART AND PERICARDIUM: Heart size is normal. No pericardial effusion. CORONARY ARTERIES: Coronary artery calcification is seen. VESSELS: Thoracic aorta is not dilated. MEDIASTINUM AND TAMMY: Small benign-appearing mediastinal lymph nodes. Esophagus is unremarkable. No hiatal hernia. UPPER ABDOMEN: Moderate sized hiatal hernia. BONES: Degenerative changes. CT/Limited Chest CT Cardiac Only IMPRESSION: Coronary artery calcification. Findings suggestive of scarring at the lung bases slightly more prominent on the right side. Moderate sized hiatal hernia. Electronically Signed: Jagdish Simpson MD at 14:43 EST ,
--- NOTE | 2022-07-28 18:19 | CCTA_ITS ---
Calcium Scoring Date of Study:: 07/28/22 Indications Indications: Family history of coronary artery disease Coronary Calcium Scoring: High-resolution Computed Tomographic imaging of the chest was performed on [07/28/2022], with particular attention paid to the coronary arteries. Images from the examination were analyzed for the presence and extent of coronary artery calcification , using coronary calcium quantification software. The miguelito ent tolerated the procedure well and there were no complications. The results of the coronary calcification analysis are provided below. Findings Coronary Artery Left Main (LM): 33.6 Left Anterior Descending (LAD): 25.3 Left Circumflex (LCX): 4.37 Right Coronary Artery (RCA): 321 Total Agatston Score: 384.27 Percentile Rankinth to 90th percentile Calcium Scoring Interpretation: Different methods to categorize the overall amount of coronary plaque. Overall amount CAC SIS Visual of coronary plaque P1 Mild -100 <2 1-2 vessels with mild amount of plaque P2 Moderate 101-300 3-4 1-2 vessels with moderate amount, 3 vessels with mild amount of plaque P3 Severe 301-999 5-7 3 vessels with moderate amount, 1 vessel with severe amount of plaque P4 Extensive >1000 >8 2-3 vessels with severe amount of plaque Calcium Score: Severe: 3 vessels w/moderate amount, 1 vessel w/severe amt of plaque Conclusion: Moderate disease with no evidence of high-grade plaquing noted.
== END | disposition home or self-care (01) ==
PROVIDERS: PCP Internal Medicine; Referring Provider Internal Medicine Cardiovascular Disease; Visit Provider Internal Medicine Cardiovascular Disease
DX: I25.10 Atherosclerotic heart disease of native coronary artery without angina pectoris (principal); K44.9 Diaphragmatic hernia without obstruction or gangrene; J98.4 Other disorders of lung; E78.5 Hyperlipidemia, unspecified; R93.1 Abnormal findings on diagnostic imaging of heart and coronary circulation; Z82.49 Family history of ischemic heart disease and other diseases of the circulatory system; M19.90 Unspecified osteoarthritis, unspecified site
CPT/HCPCS: 75571; 76380

== ENCOUNTER → 2022-08-05 | Outpatient (CLI) | payer OTHER, SELFPAY ==
[2022-08-05 11:22] LABS: Hematocrit 36.3 % (37-47); Hemoglobin 11.5 g/dL (12.0-15.0); Mean Corp Hgb Conc 31.7 g/dL (32-36); Mean Corpuscular Hgb 27.3 pg (27.0-32.0); Mean Corpuscular Volume 86.2 fL (81-99); Platelet Count 326 K/mm3 (150-450); RBC Distribution Width CV 12.7 % (11.6-14.6); RBC Distribution Width SD 39.7 fl (35.1-43.9); Red Blood Count 4.21 M/mm3 (4.2-5.4); White Blood Count 5.3 K/mm3 (4.4-11.0)
[2022-08-05 12:31] LABS: Anion Gap 7 (5-15); BUN 13 mg/dL (7-18); BUN/Creat Ratio 18.2 RATIO (10-20); Calcium,Total 9.3 mg/dL (8.5-10.1); Chloride 104 mmol/L (98-107); Creatinine, Serum 0.71 mg/dL (0.55-1.02); EST Glomerular Filtration Rate 86 mL/min (>60); Est Glom Filt Rate - Afr Amer 104 mL/min (>60); Glucose 96 mg/dL (74-106); Potassium 3.7 mmol/L (3.5-5.1); Sodium Level 138 mmol/L (136-145)
== END | disposition home or self-care (01) ==
LOC: LAB 10:29
PROVIDERS: PCP Internal Medicine; Referring Provider Internal Medicine Cardiovascular Disease; Visit Provider Internal Medicine Cardiovascular Disease
DX: Z01.810 Encounter for preprocedural cardiovascular examination (principal); R93.1 Abnormal findings on diagnostic imaging of heart and coronary circulation
CPT/HCPCS: 36415; 80048; 85027

== ENCOUNTER 2022-08-08 06:52 | Day surgery (SDC) | payer OTHER, SELFPAY ==
[2022-08-07 08:15] VITALS: BMI 25.3
--- NOTE | 2022-08-08 08:55 | CL.D_ITS ---
Patient Name: LAMAR ROMEO Study Date: 08/08/2022 Performing: Sammy Venegas MD Ht: 67 inches 170.18 cm : 1955 Wt: 162 lbs 73.48 kg Age: 67 Gender: female BSA: 1.85 PROCEDURE(S) PERFORMED [id number])LHC/COR/LV CLINICAL PROFILE AND INDICATIONS Indications: Suspected CAD Heart Failure: None Stress/Imaging Date: 07/24/22Calcium Score: 327Stress Test with SPECT MPI: Negative CAD Presentations: No Sxs, no angina. CONCLUSIONS Mild to moderate eccentric plaque noted in the right coronary artery with minimal disease noted in the LAD and circumflex artery. Preserved left ventricular systolic function. RECOMMENDATIONS Medical therapy DESCRIPTION OF PROCEDURE The patient arrived to the procedure lab. The risks and benefits of the procedure as well as a full description of our services here and current unavailability of surgical backup were fully explained to the patient and/or their significant other prior to the catheterization. The Timeout was completed, verifying the correct patient and procedure. The patient's procedural site was prepped and draped in the usual fashion. Local anesthetic was given subcutaneously to right radial region with Lidocaine 2%. Using a modified Seldinger technique, arterial access was obtained via the right radial artery, a 6Fr sheath was inserted. Left Coronary Artery selective angiography was performed in multiple views using a 5 Fr. 4.0 Lisman catheter. Right Coronary Artery selective angiography was then performed in multiple views using a 5 Fr. 4.0 Lisman catheter. Left Ventriculography was performed in CHACON projection using a 5 Fr. Pigtail catheter. LV to AO pullback pressures were then recorded.The arterial sheath was pulled and a TR Band was applied for hemostasis CORONARY ANGIOGRAPHY DOMINANCE: Right Dominant LEFT HEART ASSESSMENT Left Ventricular Ejection Fraction: by LV Gram 60 % Normal LV wall motion Normal Left Ventricular systolic function LEFT MAIN: Mild calcification, No significant disease noted LEFT ANTERIOR DESCENDING ARTERY: No significant disease noted CIRCUMFLEX ARTERY: No significant disease noted RIGHT CORONARY ARTERY: Mild luminal irregularities PROX RCA: Eccentric 30 to 40% plaque noted MID RCA: Mild luminal irregularities COMPLICATIONS No Complications PROCEDURE MEDICATIONS Fentanyl 50 mcg IV Versed 1 mg IV Versed 1 mg IV Baby Aspirin (81mg) 1 Tabs PO @ 08/08/2022 07:10:47 Heparin given IA 08/08/2022 08:31:30 Verapamil 2.5mg, Ntg 100mcgs, 3000 units of Heparin given IA 08/08/2022 08:31:30 SUMMARY OF HEMODYNAMIC DATA Time AIR REST ECG 07:13:01 Art 132/65 (91) 08:24:41 AO 105/66 (85) SA 08:33:26 LV 107/2, 9 08:38:33 LV 109/2, 8 08:38:42 LV 107/4, 10 08:40:04 LVp 106/5, 9 08:40:12 AOp 0/0 (53) 08:40:19 08:52:22 Signed By Sammy Venegas MD On 08/08/2022 08:54:31 Sammy Venegas MD
== END 2022-08-08 10:25 | disposition home or self-care (01) ==
PROVIDERS: PCP Internal Medicine; Visit Provider Internal Medicine Cardiovascular Disease
DX: R93.1 Abnormal findings on diagnostic imaging of heart and coronary circulation (principal); E78.5 Hyperlipidemia, unspecified; J45.909 Unspecified asthma, uncomplicated; E03.9 Hypothyroidism, unspecified; Z85.3 Personal history of malignant neoplasm of breast; Z82.49 Family history of ischemic heart disease and other diseases of the circulatory system
CPT/HCPCS: 93458; 99152; 99153; J7040; Q9967; C1769; C1894

== ENCOUNTER 2022-10-09 00:50 | Emergency (ER) | payer OTHER, SELFPAY ==
[2022-10-09] VITALS (8 sets, daily range): BP systolic 119–148; BP diastolic 71–90; PULSE 79–91; RESP 13–31; TEMP 36.4–37; O2SAT 29–97; BMI 27.4
--- NOTE | 2022-10-09 01:03 | RAD_ITS ---
EXAM: XR Wrist Min 3 Views INDICATION: Female, 67 years old. FALL TECHNIQUE: AP, lateral, and oblique views COMPARISON: None FINDINGS: BONES: There is a comminuted, impacted fracture deformity of the distal radial metaphysis with dorsal angulation of the largest distal fracture fragment. There is intra-articular extension of fracture line into the radial scaphoid and distal radioulnar joints. There is an associated impacted, comminuted fracture deformity of the distal ulna with dorsal angulation of the distal fracture fragment and with intra-articular extension. JOINTS: Joints are in normal alignment. There is mild degenerative change at the first carpometacarpal joint. SOFT TISSUES: No soft tissue abnormality. RAD/Wrist min 3 Views IMPRESSION: Comminuted, impacted, intra-articular fracture deformity of the distal left radial metaphysis and of the distal ulna Electronically Signed: Danyel Liriano MD at 1:28 EDT ,
[2022-10-09] MEDS: Ondansetron 4 MG/2 ML Vial IV (01:42)
[2022-10-09] MEDS: 0.9% Normal Saline 1,000 ML 999 ML IV (01:43)
[2022-10-09] MEDS: Morphine 4 MG/ML Syringe IV (01:43)
--- NOTE | 2022-10-09 02:42 | RAD_ITS ---
INDICATION: post reduction EXAMINATION/TECHNIQUE: X-RAY - LEFT XR Wrist Min 3 Views 3 VIEWS COMPARISON: October 09, 2022. FINDINGS: SOFT TISSUES: Casting obscures fine osseous detail. Mild diffuse fusiform edema No subcutaneous emphysema. No radiopaque foreign body. BONES/JOINTS: Distal radial metaphyseal transverse fracture of dorsal angulation that is decreased from prior radiograph. Ulnar distal metaphyseal fracture and styloid fractures again noted without gross displacement. Buckling of the base of the first metacarpal versus overhanging osteophyte formation. ., Carpal bones remain aligned with the distal radius. No aggressive osseous lesion. RAD/Wrist min 3 Views IMPRESSION: Distal radial metaphyseal fracture with posterior angulation, decreased from prior radiograph. Minimally displaced ulnar metaphyseal and styloid fracture Possible buckle fracture of the first metacarpal proximal metaphysis versus overhanging osteophyte formation. Consider follow-up radiograph in 10-[address] Electronically Signed: Sean Connelly MD at 3:05 EDT ,
[2022-10-09] MEDS: Propofol 200 MG/20 ML Vial IV BOLUS (02:59)
--- NOTE | 2022-10-09 03:07 | EDS_ITS ---
HPI History of Present Illness Chief Complaint: Upper Extremity Injury Narrative Narrative: 67-year-old female with mechanical fall injuring her left wrist. She is able to move it. States is painful. She notes it is deformed and swollen. No head injury or LOC. [facility] Medical History Anxiety and depression Arthritis Asthma Environmental allergies GERD (gastroesophageal reflux disease) History of back problems History of Papanicolaou smear of cervix Hx of breast cancer Hx of cataract Hx of mammogram Hx of thyroid disease Hyperlipidemia Hypothyroidism (acquired) Neuropathy of both feet Osteoarthritis Skin cancer Home Medications albuterol sulfate 90 mcg/actuation aerosol inhaler 1 puff inhalation Q4H PRN PRN Shortness Of Breath 04/30/14 [History Last Taken Unknown] escitalopram oxalate 20 mg tablet 20 mg PO DAILY 12/30/19 [History Last Taken Unknown] cholecalciferol (vitamin D3) 125 mcg (5,000 unit) capsule 125 mcg PO DAILY 06/27/20 [History Last Taken Unknown] levothyroxine 112 mcg tablet 112 mcg PO DAILY 06/27/20 [History Last Taken Unknown] allopurinol 300 mg tablet 300 mg PO DAILY 06/25/21 [History Last Taken Unknown] celecoxib 200 mg capsule (Celebrex) 200 mg PO DAILY 06/25/21 [History Last Taken Unknown] atorvastatin 40 mg tablet 40 mg PO DAILY #90 tabs 07/10/22 [Rx Last Taken Unknown] metformin 500 mg tablet 500 mg PO BID 07/10/22 [History Last Taken Unknown] aspirin 81 mg tablet,delayed release (Adult Aspirin Regimen) 81 mg PO DAILY 08/04/22 [History Last Taken Unknown] Allergy/AdvReac Type Severity Reaction Status Date / Time house dust Allergy Severe Shortness Verified 10/09/22 00:54 of breath mold Allergy Severe Shortness Verified 10/09/22 00:54 of breath tree and shrub pollen Allergy Severe Shortness Verified 10/09/22 00:54 of breath Family History Brother Myocardial infarction, Onset Age: 47 Brother Myocardial infarction, Onset Age: 43 Brother Myocardial infarction, Onset Age: 77 Unknown Myocardial infarction Ages 50-59 Sister Myocardial infarction, Onset Age: 57 Other Arthritis Cancer Crohns disease Diabetes Heart disease High cholesterol Hx of stroke associated with blood clotting tendency Hypertension Kidney disease Surgical History History of appendectomy History of bilateral breast reduction surgery History of lumpectomy Hx of colonoscopy Social History Smoking Status: Never smoker alcohol intake: never substance use type: does not use caffeine: Yes Type: tea Number of servings: 3 ROS ROS ED Constitutional Constitutional ED: Denies chills, fever(s) or sweats Eyes Eyes: Denies blurry vision or change in vision ENT ENT ED: Denies ear pain or sore throat Cardiovascular Cardiovascular: Denies chest pain, palpitations or racing heartbeat Respiratory/Chest Respiratory/Chest: Denies cough, dyspnea or sputum Gastrointestinal Gastrointestinal: Denies abdominal pain, constipation, diarrhea, nausea or vomiting Genitourinary Genitourinary ED: Denies dysuria, hematuria or urinary frequency Musculoskeletal Musculoskeletal: Reports other Details: Left wrist pain ; Denies arthralgias, myalgias or neck pain Integumentary Denies abscess, Abrasions or rash Neurologic Neurologic: Denies headache(s), paresthesias or weakness Psychiatric Psychiatric: Denies anxiety, depression, suicidal ideation or suicidal thoughts Endocrine Endocrinology: Denies polydipsia or polyuria EXAM Physical Exam Const Vital Signs: 10/09/22 00:51 10/09/22 01:55 Temperature 97.6 F L 98.6 F Temperature Source Temporal Pulse Rate 91 81 Respiratory Rate 18 15 Blood Pressure 148/85 H 138/90 H Blood Pressure Mean 106 Pulse Ox 97 96 Oxygen Delivery Method Room Air Nasal Cannula Oxygen Flow Rate (L/min) 2 Positive well nourished General Appearance ED: NAD HEENT normocephalic and atraumatic Resp normal respiratory effort and clear to auscultation bilaterally Auscultation: Negative for rales, rhonchi or wheezes Cardio regular rate and regular rhythm Extremity Extremity Narrative: Left wrist tender to palpation. Obvious deformity and swelling. Left hand neurovascular intact brisk cap refill to all 5 fingers. Neuro oriented x3 and CN's II-XII intact bilaterally Sensorium / Orientation: alert Psych mental status grossly normal MDM MDM MDM Narrative Medical decision making narrative: Patient presenting with left wrist pain. IV line was established he was given 4 mg morphine and 4 mg of Zofran. I think I will likely have to consciously sedate her to reduce her left wrist. X-ray on my interpretation shows a comminu pepper intra-articular fracture of the left distal radius and distal ulna with impaction. Radiology interpretation agrees. Patient consented for conscious sedation and closed reduction with propofol. Timeout was called prior to procedure. Reduction was performed while under conscious sedation. The left wrist was splinted in a handmade well-padded sugar-tong splint by myself. She is neurovascular intact postprocedure. She tolerated anesthesia well. Anesthesia time about 10 minutes. Repeat imaging shows improved alignment of previous radial and ulnar fractures. Patient will be given oxycodone for home. She is given follow-up with Dr. Singh is on-call. Return precautions discussed. Impression: 1. Mechanical fall 2. Right wrist fracture Radiography Diagnostic Testing: Clinical Impression(s) from Imaging Studies Wrist X-Ray 10/09/22 01:03 IMPRESSION: Comminuted, impacted, intra-articular fracture deformity of the distal left radial metaphysis and of the distal ulna Electronically Signed: Danyel Liriano MD at 1:28 EDT , Wrist X-Ray 10/09/22 02:42 IMPRESSION: Distal radial metaphyseal fracture with posterior angulation, decreased from prior radiograph. Minimally displaced ulnar metaphyseal and styloid fracture Possible buckle fracture of the first metacarpal proximal metaphysis versus overhanging osteophyte formation. Consider follow-up radiograph in 10-[address] Electronically Signed: Sean Connelly MD at 3:05 EDT , Discharge Plan Triage Chief Complaint: Upper Extremity Injury ED Provider: Adam Soto Dx/Rx/DC Orders Prescriptions: No Action cholecalciferol (vitamin D3) 125 mcg (5,000 unit) capsule 125 mcg PO DAILY levothyroxine 112 mcg tablet 112 mcg PO DAILY Label Comments: TAKE 1 TABLET BY MOUTH 6 DAYS A WEEK celecoxib [Celebrex] 200 mg capsule 200 mg PO DAILY allopurinol 300 mg tablet 300 mg PO DAILY metformin 500 mg tablet 500 mg PO BID Label Comments: TAKE 1 TABLET BY MOUTH TWICE A DAY albuterol sulfate 1 PUFF inhaler 1 puff INHALATION Q4H PRN PRN (Reason: Shortness Of Breath) Label Comments: breathing escitalopram oxalate 20 MG tablet 20 mg PO DAILY atorvastatin 40 mg tablet 40 mg PO DAILY Qty: 90 3RF aspirin [Adult Aspirin Regimen] 81 mg tablet,delayed release (DR/EC) 81 mg PO DAILY Primary Care Provider: Rosaura Hinton Referrals: Rosaura Hinton DO [Primary Care Provider] -
[2022-10-09] MEDS: oxyCODONE 5 MG Tablet PO (03:26)
== END 2022-10-09 03:35 | disposition home or self-care (01) ==
PROVIDERS: Emergency Provider Student in an Organized Health Care Education/Training Program; PCP Internal Medicine; Visit Provider Student in an Organized Health Care Education/Training Program
DX: S52.572A Other intraarticular fracture of lower end of left radius, initial encounter for closed fracture (principal); E78.5 Hyperlipidemia, unspecified; W19.XXXA Unspecified fall, initial encounter; Z85.3 Personal history of malignant neoplasm of breast; K21.9 Gastro-esophageal reflux disease without esophagitis; E03.9 Hypothyroidism, unspecified
CPT/HCPCS: 25605; 73110; 99152; 99284; J7030; A4216; J2405

== ENCOUNTER 2022-10-16 10:48 | Day surgery (SDC) | payer OTHER, SELFPAY ==
[2022-10-15 09:14] LABS: Absolute Neutrophil Count 2.5 X10^3/uL (2.0-7.7); Basophil# 0.02 X10^3/uL; Basophil% 0.4 % (0-1); Eosinophil# 0.49 X10^3/uL; Eosinophils% 10.4 % (0-5); Hematocrit 34.9 % (37-47); Hemoglobin 10.6 g/dL (12.0-15.0); Lymphocyte % 27.5 % (19-41); Mean Corp Hgb Conc 30.4 g/dL (32-36); Mean Corpuscular Hgb 25.7 pg (27.0-32.0); Mean Corpuscular Volume 84.7 fL (81-99); Mean Platelet Vol. 9.1 fl (6.2-12.0); Monocyte# 0.37 X10^3/uL; Monocyte% 7.8 % (0-10); NRBC Flagged by Analyzer 0 % (0-5); Neutrophil # 2.53 X10^3/uL (2.7-7.7); Neutrophil % 53.7 % (47-70); Platelet Count 326 K/mm3 (150-450); RBC Distribution Width CV 13.5 % (11.6-14.6); RBC Distribution Width SD 41.9 fl (35.1-43.9); Red Blood Count 4.12 M/mm3 (4.2-5.4); White Blood Count 4.7 K/mm3 (4.4-11.0)
[2022-10-15 09:42] LABS: Hemoglobin A1c 5.9 % (3.8-5.6)
[2022-10-16 11:11] VITALS: BP 115/71; PULSE 63; RESP 16; TEMP 36.8; O2SAT 100; BMI 25.9
[2022-10-16] MEDS: Lactated Ringers 1,000 ML 15 ML IV ×2 (11:16→15:03)
[2022-10-16 12:20] LABS: Bedside Glucose 72 mg/dL (74-106)
[2022-10-16] MEDS: Cefazolin 2 GM in 0.9% Normal Saline 100 ML IV (12:56)
--- NOTE | 2022-10-16 13:11 | RAD_ITS ---
STUDY: X-RAY - LEFT WRIST REASON FOR EXAM: Female, 67 years old. Fracture. TECHNIQUE: 2 intraoperative view(s) of the wrist were obtained. COMPARISON: October 09, 2022. FINDINGS: There is a metallic plate and screws along the volar aspect of the distal distal radius. The fracture is in normal alignment. Again seen is a fracture of the distal fibula which is unchanged in alignment. The radial carpal joint is preserved. Air is seen in the surrounding soft tissues. RAD/Wrist 2 Views IMPRESSION: Status post internal fixation of a distal radial fracture in the OR. Electronically Signed: Nicola Gutierrez DO at 19:22 EDT ,
[2022-10-16 14:24] VITALS: BP 115/71; BP 126/69; PULSE 83; RESP 16; TEMP 36.9; O2SAT 88
--- NOTE | 2022-10-16 14:24 | OP.PCM_ITS ---
Report of Operation Date of Procedure: 10/16/22 Description of Surgical Findings:: Preoperative diagnosis: Left intra-articular distal radius fracture Postoperative diagnosis: Left intra-articular distal radius fracture Procedure: Left distal radius open reduction internal fixation Surgeon: Josh Hwang DO Optical Model Maker And Tester: Cammy Rust PA-C Anesthesia: General endotracheal Bilingual Account Manager: Wily Rosas CRNA Complications: None Drains: None Estimated blood loss: 50 cc Urinary output: None recorded IV fluids: 1000 cc crystalloid Specimens: None Surgical implants: Arthrex narrow left volar locking distal radius plate 3 hole Surgical indications: This is a [id number] 67-year-old female who sustained a ground-level fall on an outstretched left hand early in the morning 10/09/2022. She believes she fell asleep when she was standing up as she was taking her dog out in the wee hours of the night. She awoke after the fall and noted immediate pain and deformity of her left wrist. She went right to the emergency department. X-rays revealed a displaced intra-articular fracture of the left distal radius as well as an ulnar neck fracture with ulnar styloid fracture. Closed reduction was performed and improved alignment was noted. There was 20 degrees remaining dorsal angulation and significant dorsal translation remaining. I saw the patient in the office on 10/13/2022. Hematoma block was administered and repeat closed reduction was performed. There was improvement in alignment with the angulation however significant dorsal translation remained. We discussed continued nonoperative management versus proceeding with open reduction internal fixation. She wished proceed with surgery. I agreed and recommended surgical intervention due to the persistent deformity. We discussed the risks, benefits, alternatives to procedure. Risks included but were not limited to bleeding, flexion, loss of life or limb, need for additional surgery, persistent pain, nonhealing bone or wounds, neurovascular injury, tendon injury, symptomatic hardware, need for hardware removal, posttraumatic arthritis, stiffness, DVT or PE. Patient expressed understanding of these risks and wished to proceed with surgery. Informed consent obtained in the outpatient setting. Description of procedure: Patient was seen in preoperative holding area. He was identified by name, medical record number, date of . The operative extremity was marked with a surgical marker. We confirmed informed consent with the patient and all questions were answered to the patient's satisfaction. An axillary block was administered by the anesthesia staff prior to the procedure. Fiberglass cast was removed in the preoperative holding area. At time of her procedure, patient was brought to the operative suite and positioned supine on a standard operating table. All bony prominences were well-padded. General anesthesia was administered. After adequate anesthesia, a well-padded pneumatic tourniquet was applied to the upper arm of the operative extremity. We then spun the bed 90 degrees. We prepped and draped the operative extremity in a normal, sterile orthopedic fashion. We then performed a timeout with all parties in attendance in agreement the side, site, and operation be performed. No concerns were voiced and we elected to proceed. 2 g Ancef was administered for antibiotic prophylaxis prior to the incision by anesthesia staff. I first exsanguinated the operative extremity with an Esmarch bandage. Tourniquet was inflated to 250 mmHg. Tourniquet remained up for 41 minutes. Esmarch was removed. I planned a standard FCR approach over the flexor carpi radialis tendon along the volar wrist. Skin was sharply incised with a 15 blade scalpel down to the level of the tendon sheath. The FCR tendon sheath was identified and split longitudinally in line with the incision. I then retracted the FCR tendon ulnarly, split the floor of the tendon sheath in line with the incision. The flexor pollicis longus muscle belly was then encountered and retracted ulnarly. The pronator quadratus was then encountered. A self- retaining retractor was placed deep. Performed an L-shaped tenotomy of the pronator quadratus and subperiosteally elevated it ulnarly. This exposed the f racture site. The volar lip of the distal segment was impacted within the intramedullary canal of the radius consistent with inability to improve dorsal translation. I used a dental pick to disengage the fracture fragment and applied a volar transitory force along the carpus to achieve an anatomic reduction. I then held this in place with 2 percutaneous K wires through the radial styloid. I then selected a narrow volar locking plate. This was provisionally fixed with K wires. Appropriate reduction and hardware position was confirmed on orthogonal fluoroscopy. I then compressed the plate to bone with a bicortical cortex screw in the distal cluster as well as the proximal segment of the shaft portion of the plate. I then proceeded with unicortical locking screw placement in the remaining distal cluster holes. The cortex screw in the distal cluster was exchanged for a unicortical locking screw. An additional cortex screw was placed in the most proximal hole of the plate. A bicortical locking screw was placed in the most distal shaft screw hole of the plate. Final fluoroscopic images were obtained demonstrated appropriate alignment, hardware placement and sizing. The ulnar fracture was nearly anatomically aligned and felt to be stable following radial fixation. Distal radius fracture was stable. Locking screws were finally tightened with a torque limiting screwdriver. Tourniquet was then deflated. There was excellent perfusion of the hand. Hemostasis was achieved with bipolar cautery. Wound was copiously irrigated normal saline solution. Pronator quadratus was laid over the plate. Dermis was reapproximated buried 3-0 Vicryl suture. Skin was finally approximated with a running, subcuticular 4-0 Monocryl and finally approximated with Dermabond. Sterile compression dressing was applied. A well-padded short arm volar fiberglass splint was applied in slight extension of the wrist. Patient tolerated procedure well without apparent complication. She was safely extubated in the operative suite. She was transferred to his gurney and subsequently to PACU in stable condition. Need for skilled medical receptionist medical assistant: Cammy Rust PA-C was critical to the outcome of the case. During the course of the procedure the physician medical receptionist medical assistant played a vital role. Her intimate knowledge of my steps in the procedure aided in safe and expedient completion of the procedure. The PA played a vital role in positioning particularly in obtaining the appropriate positioning. The PA was also vital in the retraction of soft tissues during the exposure and protecting vital structures. The PA was also vital and obtaining fracture reduction and assisting with hardware placement. She also played a vital role in closure and splint application with my direct supervision. Post Operative Plan: Weightbearing: Nonweightbearing operative extremity Antibiotics: 2 g Ancef x 1 dose preoperatively DVT Prophylaxis: None indicated Ortiz: None Dressing: Maintain splint, keep it clean dry and intact until follow-up X-Rays: 2 weeks postop in the office Pain Medication: Oxycodone prescription provided as an outpatient. Tylenol and ibuprofen encouraged. Follow-up: 2 weeks post-operatively with me in the office
[2022-10-16 14:33] VITALS: BP 115/71; BP 125/74; PULSE 87; RESP 16; O2SAT 90
--- NOTE | 2022-10-16 14:35 | DCINST_ITS ---
Discharge Instructions Follow Up Care Test Results: Test results from this visit will be discussed in further detail at your follow- up appointment, if applicable. Discharge Plan Admission Primary Reason for Your Visit: Left wrist surgery Attending Provider: Josh Hwang Primary Care Provider: Rosaura Hinton Instructions Additional Instructions / Restrictions: Follow preprinted instructions from your surgeons office. Discharge Orders/Prescriptions Prescriptions: No Action cholecalciferol (vitamin D3) 125 mcg (5,000 unit) capsule 125 mcg PO DAILY levothyroxine 112 mcg tablet 112 mcg PO QHS Label Comments: TAKE 1 TABLET BY MOUTH 6 DAYS A WEEK celecoxib [Celebrex] 200 mg capsule 200 mg PO DAILY allopurinol 300 mg tablet 300 mg PO DAILY metformin 500 mg tablet 500 mg PO BID Label Comments: TAKE 1 TABLET BY MOUTH TWICE A DAY albuterol sulfate 1 PUFF inhaler 1 puff INHALATION Q4H PRN PRN (Reason: Shortness Of Breath) Label Comments: breathing escitalopram oxalate 20 MG tablet 20 mg PO DAILY oxycodone-acetaminophen [Percocet] 5-325 mg tablet 1 tab PO Q8H PRN (Reason: pain) 3 Days Qty: 12 0RF fluticasone propion-salmeterol [Advair Diskus] 250-50 mcg/dose Blister With Device 1 inh INHALATION Q12H acetaminophen [Tylenol] 325 mg Tablet 650 mg PO Q4H PRN (Reason: Pain) omeprazole magnesium [Prilosec OTC] 20 mg Tablet,Delayed Release (Dr/Ec) 20 mg PO QODAY atorvastatin 40 mg tablet 40 mg PO DAILY Qty: 90 3RF aspirin [Adult Aspirin Regimen] 81 mg tablet,delayed release (DR/EC) 81 mg PO DAILY Other Ambulatory Orders: Chest PA and Lateral (Routine) Timeframe: 20221014 Facility: [facility] - Location: [facility] Ordered By: Dr. Slava Murillo Referrals / Follow Up: Rosaura Hinton DO [Primary Care Provider] - Josh Hwang DO [Med Staff - Active Staff] - Within 2 Weeks Disposition Disposition (needs filled in before D/C Order can be placed): Home, Self Care
[2022-10-16 14:45] VITALS: BP 115/71; BP 125/71; PULSE 76; RESP 16; O2SAT 92
[2022-10-16 15:00] VITALS: BP 115/71; BP 130/70; PULSE 78; RESP 16; TEMP 36.8; O2SAT 94
[2022-10-16 15:48] VITALS: BP 115/71; BP 124/69; PULSE 88; RESP 16; TEMP 37.6; O2SAT 93
== END 2022-10-16 15:55 | disposition home or self-care (01) ==
LOC: SDC 10:50 → AC 10:50
PROVIDERS: PCP Internal Medicine; Referring Provider Student in an Organized Health Care Education/Training Program; Visit Provider Student in an Organized Health Care Education/Training Program
PROC: (CPT 25608; principal; 2022-10-16 12:10)
DX: S52.572A Other intraarticular fracture of lower end of left radius, initial encounter for closed fracture (principal); E11.9 Type 2 diabetes mellitus without complications; Z85.3 Personal history of malignant neoplasm of breast; E78.5 Hyperlipidemia, unspecified; F32.9 Major depressive disorder, single episode, unspecified; F32.A Depression, unspecified; E03.9 Hypothyroidism, unspecified; E66.3 Overweight; S52.692A Other fracture of lower end of left ulna, initial encounter for closed fracture; W19.XXXA Unspecified fall, initial encounter; Z68.26 Body mass index [BMI] 26.0-26.9, adult
CPT/HCPCS: 25608; 01830; 36415; 73100; 76000; 82962; 83036; 85025; C1713; J7120; J2405

== ENCOUNTER → 2023-01-21 | Outpatient (CLI) | payer OTHER, SELFPAY ==
--- NOTE | 2023-01-21 08:57 | BD_ITS ---
STUDY: DUAL ENERGY X-RAY ABSORPTIOMETRY / DXA REASON FOR EXAM: Female, 67 years old. S52.572D TECHNIQUE: Bone Mineral Density (BMD) measurements of lumbar spine and bilateral hips were obtained. COMPARISON: Comparison is made with prior study dated November 13, 2020. FINDINGS: Lumbar Spine (L1-L4): g/cm2 (0.940) / T-score (-0.9) / Z-score (1.2) Findings are suggestive of normal bone density with a low fracture risk. Left Femur Total: g/cm2 (0.964) / T-score (0.2) / Z-score (1.7) Left Femoral Neck: g/cm2 (0.868) / T-score (0.2) / Z-score (2.0) Right Femur Total: g/cm2 (0.839) / T-score (-0.8) / Z-score (0.6) Right Femoral Neck: g/cm2 (0.880) / T-score (0.3) / Z-score (2.1) The T-Scores on the most recent prior examination were: Lumbar Spine (L1-L4): There has been worsening of bone density since the previous examination. Left Femur Total: which represents an improvement of 1.9%. Right Femur Total: which represents a worsening of 4.1%. BD/Dexa Bone Density Study IMPRESSION: The patient is considered normal as outlined below according to World C[employer] Organization (WHO) criteria with a low fracture risk. There has been worsening of bone density since the previous examination. Reference Information: The T-score is the number of standard deviations above or below the standard which is normal for young adults at their peak bone mineral density. The World Health Organization (WHO) interprets the T-scores as follows: Above -1 Normal bone density Between -1 and -2.5 Osteopenia Equal to / or below -2.5 Osteoporosis As a practical clinical guideline, osteopenia may be graded as follows: Mild -1 through -1.5 Moderate -1.6 through -2.0 Severe -2.1 through -2.4 The Z-score is the number of standard deviations above or below age-matched controls. A Z-score of less than -1.5 would be considered abnormal. References: 1. NIH Osteoporosis and Related Bone Diseases www osteo.org 2. International Society for Clinical Densitometry www iscd.org 3. National Osteoporosis Foundation www nof.org Electronically Signed: Jagdish Simpson MD at 10:41 EDT ,
== END | disposition home or self-care (01) ==
LOC: OPBD 08:52
PROVIDERS: PCP Internal Medicine; Referring Provider Student in an Organized Health Care Education/Training Program; Visit Provider Student in an Organized Health Care Education/Training Program
DX: S52.572D Other intraarticular fracture of lower end of left radius, subsequent encounter for closed fracture with routine healing (principal); S52.612D Displaced fracture of left ulna styloid process, subsequent encounter for closed fracture with routine healing
CPT/HCPCS: 77080

== ENCOUNTER → 2023-09-17 | Outpatient (CLI) | payer OTHER, SELFPAY ==
--- NOTE | 2023-09-17 06:49 | ECHODONC_ITS ---
Reason For Study: MURMUR Procedure This was a 2D Doppler, Color Flow transthoracic echocardiogram. Myocardial strain analysis was performed in this exam to aid in the assessment of cardiac function. Exam performed in department. Left Ventricle Normal LV size. Left ventricular systolic function is normal. Stage 1 diastolic dysfunction. The left ventricular ejection fraction is 55 %. No regional wall motion abnormalities noted. Right Ventricle Normal RV size. Normal systolic function. Mitral Valve Bileaflet diffuse mitral valve thickening. Mild (1+) mitral valve insufficiency. Tricuspid Valve Normal tricuspid valve. Mild (1+) tricuspid valve insufficiency. Pulmonary artery systolic pressure is 30 mmHg. Aortic Valve Trisinus/trileaflet aortic valve. Mild focal aortic valve calcification. Mild (1+) aortic valve insufficiency. Pulmonic Valve Normal pulmonic valve. Great Vessels Normal aortic root. The pulmonary artery is normal size. Normal inferior vena cava. Pericardium/Pleural No pericardial effusion. MMode/2D Measurements & Calculations LVIDd: 4.2 cm IVSd: 1.0 cm Ao root diam: 4.0 cm LVIDs: 2.9 cm LVPWd: 0.75 cm RVDd: 3.2 cm FS: 30.7 % LAV(MOD-bp): 55.7 ml LVAd ap4: 27.4 cm2 LVAd ap2: 28.4 cm2 LAV(MOD-bp) Indexed: 30.0 ml/m2 LVLd ap4: 8.3 cm LVLd ap2: 8.1 cm LAV(MOD-sp2): 63.3 ml EDV(MOD-sp4): 77.0 ml EDV(MOD-sp2): 82.6 ml LAV(MOD-sp4): 48.6 ml EDV(sp4-el): 77.3 ml EDV(sp2-el): 84.2 ml LVAs ap4: 16.8 cm2 LVAs ap2: 15.4 cm2 LVLs ap4: 6.8 cm LVLs ap2: 6.4 cm ESV(MOD-sp4): 34.7 ml ESV(MOD-sp2): 32.3 ml ESV(sp4-el): 35.3 ml ESV(sp2-el): 31.6 ml EF(MOD-sp4): 55.0 % EF(MOD-sp2): 60.9 % EF(sp4-el): 54.3 % SV(MOD-sp4): 42.3 ml SV(MOD-sp2): 50.3 ml SV(sp4-el): 42.0 ml LA dimension(2D): 4.2 cm LA A4 area: 18.2 cm2 RA A4 area: 10.3 cm2 TAPSE: 2.6 cm Time Measurements MV dec time: 0.25 sec Doppler Measurements & Calculations MV E max pepe: 58.7 cm/sec Lat Peak E' Pepe: 10.7 cm/sec Med Peak E' Pepe: 8.6 cm/sec MV A max pepe: 75.3 cm/sec E/E' lat: 5.5 E/E' med: 6.8 MV E/A: 0.78 MV dec slope: 240.7 cm/sec2 Ao V2 max: 173.2 cm/sec LV V1 max: 137.6 cm/sec Ao max P.0 mmHg LV V1 max P.6 mmHg Ao V2 mean: 130.1 cm/sec LV V1 mean P.1 mmHg Ao mean P.3 mmHg LV V1 mean: 96.7 cm/sec Ao V2 VTI: 36.2 cm LV V1 VTI: 28.1 cm AV (velocity ratio): 0.78 PA V2 max: 80.3 cm/sec TR max pepe: 258.0 cm/sec PA V2 mean: 59.9 cm/sec TR max P.6 mmHg ECHO/ONC Echo Complete Interpretation Summary Normal LV size. Left ventricular systolic function is normal. Stage 1 diastolic dysfunction. The left ventricular ejection fraction is 55 %. Pulmonary artery systolic pressure is 30 mmHg. Ordering Physician: Ed Carrion Referring Physician: Rosaura Hinton Performed By: Lorene Torres RDCS, RVT
== END | disposition home or self-care (01) ==
PROVIDERS: PCP Internal Medicine; Referring Provider Internal Medicine Cardiovascular Disease; Visit Provider Internal Medicine Cardiovascular Disease
DX: R01.1 Cardiac murmur, unspecified (principal)
CPT/HCPCS: 93306; 93356

== ENCOUNTER 2023-10-22 17:30 | Outpatient (RCR) | payer SELFPAY | END 2023-10-27 23:59 | LOC: NS 17:30 | PROVIDERS: PCP Internal Medicine | DX: Z71.3 Dietary counseling and surveillance (principal) ==

== ENCOUNTER 2023-11-30 15:02 | Inpatient (IN) | payer OTHER, MEDICARE, SELFPAY ==
[2023-11-30] VITALS (11 sets, daily range): BP systolic 116–157; BP diastolic 57–100; PULSE 70–101; RESP 14–18; TEMP 36.2–36.7; O2SAT 92–100; BMI 26.8; BMI 24.8
--- NOTE | 2023-11-30 15:18 | CT_ITS ---
EXAM: CT CERVICAL SPINE WITHOUT INTRAVENOUS CONTRAST CLINICAL INDICATION: neck injury, fall TECHNIQUE: Helically acquired images were obtained of the cervical spine without intravenous contrast. 2D reformatted images were reviewed. This CT exam was performed using one or more of the following dose reduction techniques: automated exposure control, adjustment of the mA and/or kV according to patient size, and/or use of iterative reconstruction technique. COMPARISON: No relevant prior studies available. FINDINGS: VERTEBRAE: There is minimal posterior spondylolisthesis of C5 in comparison to C4 of 2 mm. DISCS/SPINAL CANAL/NEURAL FORAMINA: There is disc space narrowing at C5-6. There is bilateral bony neural foraminal narrowing at C3-4. There is bilateral bony neural foraminal narrowing at C5-6. SOFT TISSUES: Unremarkable. No prevertebral soft tissue swelling. LYMPH NODES: Unremarkable. No cervical adenopathy. LUNG APICES: Unremarkable as visualized. Clear. CT/Spine Cervical without Contras IMPRESSION: 1. No acute osseous abnormalities of the cervical spine. 2. Degenerative changes with disc space narrowing and bony neural foraminal narrowing. Electronically Signed: Sunny Webb MD at 16:07 EDT ,
--- NOTE | 2023-11-30 15:18 | RAD_ITS ---
EXAM: XR RIGHT WRIST COMPLETE, 3 OR MORE VIEWS CLINICAL INDICATION: injury TECHNIQUE: Frontal, lateral and oblique views of the right wrist. COMPARISON: No relevant prior studies available. FINDINGS: BONES/JOINTS: There is a fracture of the distal radius with posterior angulation of the distal fracture fragment. There are also. Fracture of the distal ulna with minimal impaction. Preservation of the joint space. No sclerotic or destructive changes observed. SOFT TISSUES: Unremarkable. No soft tissue swelling or gas. No radiopaque foreign body. RAD/Wrist min 3 Views IMPRESSION: Fracture of the distal radius with posterior angulation. There is also an apparent fracture of the distal ulna with minimal impaction. Electronically Signed: Sunny Webb MD at 17:04 EDT ,
--- NOTE | 2023-11-30 15:18 | CT_ITS ---
EXAM: CT HEAD WITHOUT INTRAVENOUS CONTRAST CLINICAL INDICATION: head injury TECHNIQUE: Multiple axial images were obtained of the head without intravenous contrast. This CT exam was performed using one or more of the following dose reduction techniques: automated exposure control, adjustment of the mA and/or kV according to patient size, and/or use of iterative reconstruction technique. COMPARISON: No relevant prior studies available. FINDINGS: BRAIN AND EXTRA-AXIAL SPACES: Unremarkable. No intra- or extra-axial hemorrhage. No evidence of acute infarct. No intracranial mass or mass effect. There is preservation of the robles/white matter interface. Posterior fossa structures are unremarkable. Ventricles are appropriate for age. No hydrocephalus. Basal cisterns are patent. BONES/JOINTS: Unremarkable. No discrete lytic or blastic abnormalities. SINUSES: Unremarkable as visualized. Clear. MASTOID AIR CELLS: Unremarkable. Clear. ORBITS: Visualized globes, extraocular muscles, optic nerves and retrobulbar fat appear unremarkable. CT/Brain/Head without Contrast IMPRESSION: Negative head/brain CT without intravenous contrast. Electronically Signed: Sunny Webb MD at 16:48 EDT ,
--- NOTE | 2023-11-30 15:18 | RAD_ITS ---
EXAM: XR LEFT ELBOW, 2 VIEWS CLINICAL INDICATION: injury TECHNIQUE: Frontal and lateral views of the left elbow. COMPARISON: No relevant prior studies available. FINDINGS: BONES/JOINTS: There is a fracture of the olecranon with 2.5 cm of distraction. There is no displacement of the anterior or posterior fat pads. Preservation of the joint space. No destructive or sclerotic lesions. SOFT TISSUES: There is soft tissue swelling present. No radiopaque foreign body. RAD/Elbow 2 Views IMPRESSION: Fracture of the olecranon with 2.5 cm distraction. There is soft tissue swelling present. Electronically Signed: Sunny Webb MD at 16:54 EDT ,
--- NOTE | 2023-11-30 15:20 | EDS_ITS ---
<Statement entered by Sharon Mcfadden MD - 11/30/23 23:56> I have personally performed a face to face assessment of the patient and have reviewed the ZOILA Note. Patient presents secondary to fall. She fell downtown injuring both upper extremities. She has pain to her right wrist with deformity as well as pain to her left elbow. She is right-hand dominant. She denies loss of consciousness, but did hit her head. She is a small abrasion noted just lateral to her left eyebrow. Patient sitting upright in bed no acute distress. Alert and talkative. Head and neck examination reveals abrasion on lateral aspect of the left eyebrow. No active bleeding. Extraocular movements intact. No C-spine tenderness. Heart is regular rate and rhythm. Lung sounds are clear. Abdomen is soft and nontender. Left upper extremity examination reveals edema and tenderness at the left elbow. She is able to flex and extend. Good distal pulses. Right upper extremity examination feels deformity at the right wrist. She does have good cap refill distally and can wiggle fingers. No tenderness at the right elbow. CT scan of the head and C-spine revealed no acute abnormalities. Left elbow x- rays reveal an olecranon process fracture per my interpretation with bony distraction. Radiology interpretation reviewed and agrees. Right elbow x-ray per my interpretation reveals distal radius and ulnar fracture. Test results discussed with the patient. She is consented for procedural sedation. Patient is placed on crystal slicer with end-tidal CO2 monitoring. Patient received a total of 100 mg of propofol and 3 separate aliquots. Right wrist is reduced and placed in an AP splint. Postreduction x-rays show improvement in alignment. Following splint application she can wiggle fingers and has good sensation. Left upper extremity is also splinted in a long posterior splint with elbow in slight flexion. Elbow was well-padded. Following splint application she has good cap refill distally and can wiggle fingers. Given the patient now has both upper extremities immobilized and lives alone, she will require admission for probable rehab placement. We have spoke with carolynn preston as well as hospitalist. HPI <ERIC Sawant - Last Filed: 11/30/23 20:55> History of Present Illness Chief Complaint: Fall Narrative Narrative: Patient presenting due to a mechanical fall that occurred this afternoon. She reports that she was walking into a store when she tripped on the cement and tried to catch herself with her right wrist and ultimately hit her head on the ground. She reports pain to her right wrist and left elbow. She has a small abrasion to the left side of her forehead. She did not lose consciousness, she is not on any blood thinners. She denies any pain in her head or neck or other injury. She is right-handed. [facility] <ERIC Sawant - Last Filed: 11/30/23 20:55> [facility] Medical History Hypothyroidism Wears glasses Cancer Diabetes Gout High cholesterol Back pain Dietary restriction History of hiatal hernia Non-smoker Asthma Leg cramps History of stress test History of echocardiogram Cardiology follow-up encounter Hyperlipidemia Hypothyroidism (acquired) History of Papanicolaou smear of cervix Hx of mammogram Skin cancer GERD (gastroesophageal reflux disease) Osteoarthritis Neuropathy of both feet Hx of cataract Hx of breast cancer Arthritis Anxiety and depression Environmental allergies Home Medications ?Medication ?Instructions ?Recorded ?Last Taken ?Type escitalopram oxalate 20 mg tablet 20 mg PO DAILY 12/30/19 Unknown History cholecalciferol (vitamin D3) 125 125 mcg PO DAILY 06/27/20 Unknown History mcg (5,000 unit) capsule levothyroxine 112 mcg tablet 112 mcg PO QHS 06/27/20 Unknown History allopurinol 300 mg tablet 300 mg PO DAILY 06/25/21 Unknown History celecoxib 200 mg capsule (Celebrex) 200 mg PO DAILY 06/25/21 Unknown History metformin 500 mg tablet 500 mg PO BID 07/10/22 Unknown History aspirin 81 mg tablet,delayed 81 mg PO DAILY 08/04/22 10/14/22 History release (Adult Aspirin Regimen) fluticasone 250 mcg-salmeterol 50 1 inh inhalation Q12H 10/14/22 Unknown History mcg/dose blistr powdr for inhalation (Advair Diskus) omeprazole magnesium 20 mg 20 mg PO QODAY 10/14/22 Unknown History tablet,delayed release (Prilosec OTC) atorvastatin 20 mg tablet 20 mg PO DAILY 08/25/23 Unknown History dapagliflozin propanediol 10 mg 10 mg PO DAILY 08/25/23 08/25/23 10:11 History tablet (Farxiga) Allergy/AdvReac Type Severity Reaction Status Date / Time house dust Allergy Severe Shortness Verified 08/25/23 09:25 of breath mold Allergy Severe Shortness Verified 08/25/23 09:25 of breath tree and shrub pollen Allergy Severe Shortness Verified 08/25/23 09:25 of breath Family History Brother Myocardial infarction, Onset Age: 47 Brother Myocardial infarction, Onset Age: 43 Brother Myocardial infarction, Onset Age: 77 Unknown Myocardial infarction Ages 50-59 Sister Myocardial infarction, Onset Age: 57 Other Arthritis Cancer Crohns disease Diabetes Heart disease High cholesterol Hx of stroke associated with blood clotting tendency Hypertension Kidney disease Surgical History History of surgery on left wrist History of cardiac catheterization History of bilateral breast reduction surgery Hx of colonoscopy History of appendectomy History of lumpectomy Social History Smoking Status: Never smoker alcohol intake: never substance use type: does not use caffeine: Yes Type: tea Number of servings: 3 ROS <ERIC Sawant - Last Filed: 11/30/23 20:55> ROS ED Constitutional Constitutional ED: Denies chills or fever(s) Cardiovascular Cardiovascular: Denies chest pain Respiratory/Chest Respiratory/Chest: Denies dyspnea Gastrointestinal Gastrointestinal: Denies abdominal pain, nausea or vomiting Musculoskeletal Musculoskeletal: Reports arthralgias; Denies back pain or neck pain Integumentary Reports Abrasions Neurologic Neurologic: Denies headache(s) EXAM <ERIC Sawant - Last Filed: 11/30/23 20:55> Physical Exam Const Vital Signs: 11/30/23 15:03 11/30/23 15:06 11/30/23 17:24 Temperature 98.0 F Temperature Source Temporal Pulse Rate 85 101 H Pulse Rate [1 (Initial Baseline)] Pulse Rate [2] Pulse Rate [3] Pulse Rate [4] Respiratory Rate 18 18 Respiratory Rate [1 (Initial Baseline)] Respiratory Rate [2] Respiratory Rate [3] Respiratory Rate [4] Respiratory Effort Normal Respiratory Depth Normal Respiratory Pattern Normal Blood Pressure 150/87 H 157/100 H Blood Pressure [3] Blood Pressure [4] Blood Pressure Mean 108 Pulse Ox 94 94 Oxygen Delivery Method Room Air Room Air Oxygen Delivery Method [1 (Initial Baseline)] Oxygen Delivery Method [2] Oxygen Delivery Method [3] Oxygen Delivery Method [4] Oxygen Flow Rate (L/min) [1 (Initial Baseline)] Oxygen Flow Rate (L/min) [2] Oxygen Flow Rate (L/min) [3] Oxygen Flow Rate (L/min) [4] 11/30/23 17:27 11/30/23 17:30 11/30/23 17:45 Temperature Temperature Source Pulse Rate 101 H Pulse Rate [1 (Initial Baseline)] 86 Pulse Rate [2] 84 Pulse Rate [3] 71 Pulse Rate [4] 72 Respiratory Rate 15 Respiratory Rate [1 (Initial Baseline)] 18 Respiratory Rate [2] 16 Respiratory Rate [3] 14 Respiratory Rate [4] 14 Respiratory Effort Respiratory Depth Respiratory Pattern Blood Pressure Blood Pressure [3] 123/61 H Blood Pressure [4] 116/75 Blood Pressure Mean Pulse Ox 94 Oxygen Delivery Method Room Air Oxygen Delivery Method [1 (Initial Baseline)] Nasal Cannula Oxygen Delivery Method [2] Nasal Cannula Oxygen Delivery Method [3] Nasal Cannula Oxygen Delivery Method [4] Nasal Cannula Oxygen Flow Rate (L/min) [1 (Initial Baseline)] 5 Oxygen Flow Rate (L/min) [2] 5 Oxygen Flow Rate (L/min) [3] 5 Oxygen Flow Rate (L/min) [4] 5 11/30/23 19:00 Temperature Temperature Source Pulse Rate 85 Pulse Rate [1 (Initial Baseline)] Pulse Rate [2] Pulse Rate [3] Pulse Rate [4] Respiratory Rate 17 Respiratory Rate [1 (Initial Baseline)] Respiratory Rate [2] Respiratory Rate [3] Respiratory Rate [4] Respiratory Effort Respiratory Depth Respiratory Pattern Blood Pressure 129/57 H Blood Pressure [3] Blood Pressure [4] Blood Pressure Mean 81 Pulse Ox 94 Oxygen Delivery Method Room Air Oxygen Delivery Method [1 (Initial Baseline)] Oxygen Delivery Method [2] Oxygen Delivery Method [3] Oxygen Delivery Method [4] Oxygen Flow Rate (L/min) [1 (Initial Baseline)] Oxygen Flow Rate (L/min) [2] Oxygen Flow Rate (L/min) [3] Oxygen Flow Rate (L/min) [4] Positive well nourished, well developed and no apparent distress General Appearance ED: well developed HEENT Reports normocephalic and head/scalp atraumatic HEENT Narrative: Small abrasion to the left superior orbit, no active bleeding. Mouth ED: Yes moist mucous membranes normal Eyes PERRL and EOMs intact bilaterally Neck full ROM and supple Chest Wall inspection of chest normal Resp normal respiratory effort and clear to auscultation bilaterally Cardio regular rate and regular rhythm GI soft to palpation, non-tender, non-distended and no masses Back/Spine normal ROM and normal to inspection Extremity normal to inspection and full ROM Extremity Narrative: Visible deformity to the right wrist with swelling and decreased range of motion. Right and left radial pulse 2+, good capillary refill, sensation intact. Edema to the left olecranon slightly decreased range of motion and slight tenderness. Neuro oriented x3, CN's II-XII intact bilaterally, moves all extremities, no focal motor deficits and no sensory deficits noted Sensorium / Orientation: awake and alert Psych mental status grossly normal and thought process normal Skin no rashes or lesions noted and no wounds <Dr. Sharon Mcfadden MD - Last Filed: 11/30/23 23:57> Physical Exam Const Vital Signs: 11/30/23 15:03 11/30/23 15:06 11/30/23 17:24 Temperature 98.0 F Temperature Source Temporal Pulse Rate 85 101 H Pulse Rate [1 (Initial Baseline)] Pulse Rate [2] Pulse Rate [3] Pulse Rate [4] Respiratory Rate 18 18 Respiratory Rate [1 (Initial Baseline)] Respiratory Rate [2] Respiratory Rate [3] Respiratory Rate [4] Respiratory Effort Normal Respiratory Depth Normal Respiratory Pattern Normal Blood Pressure 150/87 H 157/100 H Blood Pressure [3] Blood Pressure [4] Blood Pressure Mean 108 Pulse Ox 94 94 Oxygen Delivery Method Room Air Room Air Oxygen Delivery Method [1 (Initial Baseline)] Oxygen Delivery Method [2] Oxygen Delivery Method [3] Oxygen Delivery Method [4] Oxygen Flow Rate (L/min) [1 (Initial Baseline)] Oxygen Flow Rate (L/min) [2] Oxygen Flow Rate (L/min) [3] Oxygen Flow Rate (L/min) [4] 11/30/23 17:27 11/30/23 17:30 11/30/23 17:45 Temperature Temperature Source Pulse Rate 101 H Pulse Rate [1 (Initial Baseline)] 86 Pulse Rate [2] 84 Pulse Rate [3] 71 Pulse Rate [4] 72 Respiratory Rate 15 Respiratory Rate [1 (Initial Baseline)] 18 Respiratory Rate [2] 16 Respiratory Rate [3] 14 Respiratory Rate [4] 14 Respiratory Effort Respiratory Depth Respiratory Pattern Blood Pressure Blood Pressure [3] 123/61 H Blood Pressure [4] 116/75 Blood Pressure Mean Pulse Ox 94 Oxygen Delivery Method Room Air Oxygen Delivery Method [1 (Initial Baseline)] Nasal Cannula Oxygen Delivery Method [2] Nasal Cannula Oxygen Delivery Method [3] Nasal Cannula Oxygen Delivery Method [4] Nasal Cannula Oxygen Flow Rate (L/min) [1 (Initial Baseline)] 5 Oxygen Flow Rate (L/min) [2] 5 Oxygen Flow Rate (L/min) [3] 5 Oxygen Flow Rate (L/min) [4] 5 11/30/23 19:00 Temperature Temperature Source Pulse Rate 85 Pulse Rate [1 (Initial Baseline)] Pulse Rate [2] Pulse Rate [3] Pulse Rate [4] Respiratory Rate 17 Respiratory Rate [1 (Initial Baseline)] Respiratory Rate [2] Respiratory Rate [3] Respiratory Rate [4] Respiratory Effort Respiratory Depth Respiratory Pattern Blood Pressure 129/57 H Blood Pressure [3] Blood Pressure [4] Blood Pressure Mean 81 Pulse Ox 94 Oxygen Delivery Method Room Air Oxygen Delivery Method [1 (Initial Baseline)] Oxygen Delivery Method [2] Oxygen Delivery Method [3] Oxygen Delivery Method [4] Oxygen Flow Rate (L/min) [1 (Initial Baseline)] Oxygen Flow Rate (L/min) [2] Oxygen Flow Rate (L/min) [3] Oxygen Flow Rate (L/min) [4] PROC <Dr. Sharon Mcfadden MD - Last Filed: 11/30/23 23:57> Procedures Procedural Sedation 1 (Initial Baseline): Consent Signed: Yes Any Problems With Anesthesia: No You/Your family experience fever (hyperthermia) w/anesthesia: No Sedation medication: Propofol Dose: 100 Route: IV Total Moderate Sedation Units: 9 Maliampati Score: Class II ASA Classification: II MDM <ERIC Sawant - Last Filed: 11/30/23 20:55> [facility] Narrative Medical decision making narrative: Patient presenting due to a mechanical fall. She did hit her head, head CT will be obtained to rule out intracranial bleed, cervical spine CT to rule out neck fracture. She has visible deformity to the right wrist, left elbow has edema and decreased ROM, x-ray will be obtained to assess for fracture. She was given IV morphine and Zofran for pain. CT scans are negative for acute findings. She has a fracture to her left distal radius and ulna with posterior angulation. She also has a fracture to her left olecranon. Patient did require sedation and reduction of her wrist fracture with splinting and tolerated this procedure well. Postreduction films show improved alignment. A well-padded splint was applied to her left upper extremity. I did speak with Dr. Ledesma with orthopedics, he is comfortable with this plan. Given she has splints to both of her upper extremities and lives at home by herself I do have safety concerns regarding her being discharged home. I did offer admission for physical therapy and possible placement and she is agreeable with this plan. I spoke with the hospitalist and she will be admitted in stable condition. She was given additional analgesia and basic labs and coags obtained. Lab Data Attestation: I reviewed the patient's lab results. Lab results narrative: H&H 8.9 and 31.1 which is decreased from previous labs Labs: Laboratory Results - last 24 hr 11/30/23 11/30/23 17:16 18:00 WBC 9.6 RBC 4.46 Hgb 8.9 L Hct 31.1 L MCV 69.7 L MCH 20.0 L MCHC 28.6 L RDW Std Deviation 48.5 H RDW Coeff of Jaime 19.8 H Plt Count 337 MPV 8.9 Immature Gran % (Auto) 0.300 Neut % (Auto) 75.8 H Lymph % (Auto) 14.7 L Doddridge % (Auto) 6.7 Eos % (Auto) 2.2 Baso % (Auto) 0.3 Absolute Neuts (auto) 7.3 Absolute Lymphs (auto) 1.42 Nucleated RBC % 0 PT 13.8 INR 1.1 APTT 24.0 L Sodium 137 Potassium 3.9 Chloride 108 H Carbon Dioxide 23.0 Anion Gap 6 BUN 16 Creatinine 0.68 Estim Creat Clear Calc 70.24 Est GFR (MDRD) Af Amer 109 Est GFR (MDRD) Non-Af 90 BUN/Creatinine Ratio 23.4 H Glucose 89 Calcium 8.9 Radiography X-Ray: Read by ED Physician Diagnostic Testing: Clinical Impression(s) from Imaging Studies Brain CT 11/30/23 15:18 IMPRESSION: Negative head/brain CT without intravenous contrast. Electronically Signed: Sunny Webb MD at 16:48 EDT , Cervical Spine CT 11/30/23 15:18 IMPRESSION: 1. No acute osseous abnormalities of the cervical spine. 2. Degenerative changes with disc space narrowing and bony neural foraminal narrowing. Electronically Signed: Sunny Webb MD at 16:07 EDT , Elbow X-Ray 11/30/23 15:18 IMPRESSION: Fracture of the olecranon with 2.5 cm distraction. There is soft tissue swelling present. Electronically Signed: Sunny Webb MD at 16:54 EDT , Wrist X-Ray 11/30/23 15:18 IMPRESSION: Fracture of the distal radius with posterior angulation. There is also an apparent fracture of the distal ulna with minimal impaction. Electronically Signed: Sunny Webb MD at 17:04 EDT , Wrist X-Ray 11/30/23 17:45 IMPRESSION: Closed reduction with casting of a fracture of the distal radius. Electronically Signed: Sunny Webb MD at 18:05 EDT , <Dr. Sharon Mcfadden MD - Last Filed: 11/30/23 23:57> [facility] Lab Data Labs: Laboratory Results - last 24 hr 11/30/23 11/30/23 17:16 18:00 WBC 9.6 RBC 4.46 Hgb 8.9 L Hct 31.1 L MCV 69.7 L MCH 20.0 L MCHC 28.6 L RDW Std Deviation 48.5 H RDW Coeff of Jaime 19.8 H Plt Count 337 MPV 8.9 Immature Gran % (Auto) 0.300 Neut % (Auto) 75.8 H Lymph % (Auto) 14.7 L Doddridge % (Auto) 6.7 Eos % (Auto) 2.2 Baso % (Auto) 0.3 Absolute Neuts (auto) 7.3 Absolute Lymphs (auto) 1.42 Nucleated RBC % 0 PT 13.8 INR 1.1 APTT 24.0 L Sodium 137 Potassium 3.9 Chloride 108 H Carbon Dioxide 23.0 Anion Gap 6 BUN 16 Creatinine 0.68 Estim Creat Clear Calc 70.24 Est GFR (MDRD) Af Amer 109 Est GFR (MDRD) Non-Af 90 BUN/Creatinine Ratio 23.4 H Glucose 89 Calcium 8.9 Radiography Diagnostic Testing: Clinical Impression(s) from Imaging Studies Brain CT 11/30/23 15:18 IMPRESSION: Negative head/brain CT without intravenous contrast. Electronically Signed: Sunny Webb MD at 16:48 EDT Reading Location ID and State: [facility] / OR Tel , Service support , Cervical Spine CT 11/30/23 15:18 IMPRESSION: 1. No acute osseous abnormalities of the cervical spine. 2. Degenerative changes with disc space narrowing and bony neural foraminal narrowing. Electronically Signed: Sunny Webb MD at 16:07 EDT , Elbow X-Ray 11/30/23 15:18 IMPRESSION: Fracture of the olecranon with 2.5 cm distraction. There is soft tissue swelling present. Electronically Signed: Sunny Webb MD at 16:54 EDT , Wrist X-Ray 11/30/23 15:18 IMPRESSION: Fracture of the distal radius with posterior angulation. There is also an apparent fracture of the distal ulna with minimal impaction. Electronically Signed: Sunny Webb MD at 17:04 EDT , Wrist X-Ray 11/30/23 17:45 IMPRESSION: Closed reduction with casting of a fracture of the distal radius. Electronically Signed: Sunny Webb MD at 18:05 EDT , Discharge Plan Dx/Rx/DC Orders Clinical Impression: Wrist fracture, Elbow fracture, Abrasion of forehead, Fall, Head injury Disposition Disposition: Acute Care Hospital [facility] Discharge Date/Time: 11/30/23 20:47
[2023-11-30] MEDS: Morphine 4 MG/ML Syringe IV (15:31)
[2023-11-30] MEDS: Ondansetron 4 MG/2 ML Vial IV (15:31)
--- NOTE | 2023-11-30 17:45 | RAD_ITS ---
EXAM: XR RIGHT WRIST, 2 VIEWS CLINICAL INDICATION: post reduction TECHNIQUE: Frontal and lateral views of the right wrist. COMPARISON: 11/30/2023 at 15 hours FINDINGS: BONES/JOINTS: Casting material has been placed. There has been closed reduction of fracture the distal radius. Preservation of the joint space. No sclerotic or destructive changes observed. SOFT TISSUES: Unremarkable. No soft tissue swelling or gas. No radiopaque foreign body. RAD/Wrist 2 Views IMPRESSION: Closed reduction with casting of a fracture of the distal radius. Electronically Signed: Sunny Webb MD at 18:05 EDT ,
[2023-11-30] MEDS: Propofol 200 MG/20 ML Vial IV BOLUS (17:51)
[2023-11-30 18:13] LABS: Absolute Lymphocyte Count 1.42 X10^3/uL (0.83-4.51); Absolute Neutrophil Count 7.3 X10^3/uL (2.0-7.7); Basophil# 0.03 X10^3/uL; Basophil% 0.3 % (0-1); Eosinophil# 0.21 X10^3/uL; Eosinophils% 2.2 % (0-5); Hematocrit 31.1 % (37-47); Hemoglobin 8.9 g/dL (12.0-15.0); Lymphocyte # 1.42 X10^3/ul (0.83-4.51); Lymphocyte % 14.7 % (19-41); Mean Corp Hgb Conc 28.6 g/dL (32-36); Mean Corpuscular Volume 69.7 fL (81-99); Mean Platelet Vol. 8.9 fl (6.2-12.0); Monocyte# 0.65 X10^3/uL; Monocyte% 6.7 % (0-10); NRBC Flagged by Analyzer 0 % (0-5); Neutrophil % 75.8 % (47-70); Platelet Count 337 K/mm3 (150-450); RBC Distribution Width CV 19.8 % (11.6-14.6); RBC Distribution Width SD 48.5 fl (35.1-43.9); Red Blood Count 4.46 M/mm3 (4.2-5.4); White Blood Count 9.6 K/mm3 (4.4-11.0)
[2023-11-30 18:22] LABS: International Normalized Ratio 1.1; Prothrombin Time (Protime)PT. 13.8 SECONDS (11.7-14.9)
[2023-11-30 18:25] LABS: Anion Gap 6 (5-15); BUN 16 mg/dL (7-18); BUN/Creat Ratio 23.4 RATIO (10-20); Calcium,Total 8.9 mg/dL (8.5-10.1); Chloride 108 mmol/L (98-107); Creatinine, Serum 0.68 mg/dL (0.55-1.02); EST Glomerular Filtration Rate 90 mL/min (>60); Est Glom Filt Rate - Afr Amer 109 mL/min (>60); Estimated Creatinine Clearance 70.24 ml/min; Glucose 89 mg/dL (74-106); Potassium 3.9 mmol/L (3.5-5.1); Sodium Level 137 mmol/L (136-145)
--- NOTE | 2023-11-30 19:13 | PCM.HP.STD ---
[facility] - General General Date of Admission: 11/30/23 Date of Service: 11/30/23 Chief Complaint: Fractures to Left elbow and Right wrist. HPI Narrative LAMAR LYNN, is a Right-handed 68 F with a past medical history of essential hypertension, hyperlipidemia, hypothyroidism, overweight; with BMI of 26.8 this admission, DM-2; of unknown control on metformin and Farxiga, history of breast cancer; s/p Left lumpectomy, history of asthma, neuropathy of both feet, history of skin cancer, history of leg cramps, depression, GERD; with hiatal hernia, gout, osteoarthritis and history of Left wrist fracture; s/p ORIF by Dr. Hwang (09/2022) who presents to [facility] ER complaining of fall with left elbow and Right wrist fracture. Ms. Lynn reports her symptoms began approximately 1 hour prior to arrival when she lost her balance and sustained a mechanical fall when she tripped onto cement while trying to walk into a store. She tried to catch herself with her right wrist and ultimately hit her head on the ground but she denies loss of consciousness with her fall. She did however report severe injury to her Right wrist and Left elbow with disfiguration and severe pain noted immediately. She is not on any blood thinning medications and she denies any headache, neck pain or other significant injury. There is no report of fever, chills, nausea, vomiting, chest pain or shortness of breath but she does live at home alone and is currently unable to care for herself with bilateral upper extremity injuries - but she is determined to go back home and take care of her dog JARRED with no desire to go to ECF whatsoever in spite of very reasonable recommendations to the contrary. She denies a history of CAD or chest pain with activity. In the ER she was noted to have x-ray evidence of fracture of the Right distal radius with posterior angulation with an apparent fracture of the distal ulna with minimal impaction in addition to x-ray evidence of fracture of the Left olecranon with ~2.5 cm distraction with soft tissue swelling present causing patient to be unable to perform ADLs with the ER provider suspecting patient would benefit from at least short-term ECF placement if she cannot care for self at home in her current condition. She was then admitted to the general medical floor for ongoing care for stay that is expected to be greater than 2 midnights. [facility] Medical History Hypothyroidism Wears glasses Cancer Diabetes Gout High cholesterol Back pain Dietary restriction History of hiatal hernia Non-smoker Asthma Leg cramps History of stress test History of echocardiogram Cardiology follow-up encounter Hyperlipidemia Hypothyroidism (acquired) History of Papanicolaou smear of cervix Hx of mammogram Skin cancer GERD (gastroesophageal reflux disease) Osteoarthritis Neuropathy of both feet Hx of cataract Hx of breast cancer Arthritis Anxiety and depression Environmental allergies Home Medications ?Medication ?Instructions ?Recorded ?Last Taken ?Type escitalopram oxalate 20 mg tablet 20 mg PO DAILY 12/30/19 Unknown History cholecalciferol (vitamin D3) 125 125 mcg PO DAILY 06/27/20 Unknown History mcg (5,000 unit) capsule levothyroxine 112 mcg tablet 112 mcg PO QHS 06/27/20 Unknown History allopurinol 300 mg tablet 300 mg PO DAILY 06/25/21 Unknown History celecoxib 200 mg capsule (Celebrex) 200 mg PO DAILY 06/25/21 Unknown History metformin 500 mg tablet 500 mg PO BID 07/10/22 Unknown History aspirin 81 mg tablet,delayed 81 mg PO DAILY 08/04/22 10/14/22 History release (Adult Aspirin Regimen) fluticasone 250 mcg-salmeterol 50 1 inh inhalation Q12H 10/14/22 Unknown History mcg/dose blistr powdr for inhalation (Advair Diskus) omeprazole magnesium 20 mg 20 mg PO QODAY 10/14/22 Unknown History tablet,delayed release (Prilosec OTC) atorvastatin 20 mg tablet 20 mg PO DAILY 08/25/23 Unknown History dapagliflozin propanediol 10 mg 10 mg PO DAILY 08/25/23 08/25/23 10:11 History tablet (Farxiga) Allergy/AdvReac Type Severity Reaction Status Date / Time house dust Allergy Severe Shortness Verified 08/25/23 09:25 of breath mold Allergy Severe Shortness Verified 08/25/23 09:25 of breath tree and shrub pollen Allergy Severe Shortness Verified 08/25/23 09:25 of breath Family History Brother Myocardial infarction, Onset Age: 47 Brother Myocardial infarction, Onset Age: 43 Brother Myocardial infarction, Onset Age: 77 Unknown Myocardial infarction Ages 50-59 Sister Myocardial infarction, Onset Age: 57 Other Arthritis Cancer Crohns disease Diabetes Heart disease High cholesterol Hx of stroke associated with blood clotting tendency Hypertension Kidney disease Surgical History History of surgery on left wrist History of cardiac catheterization History of bilateral breast reduction surgery Hx of colonoscopy History of appendectomy History of lumpectomy Social History Smoking Status: Never smoker alcohol intake: never substance use type: does not use caffeine: Yes Type: tea Number of servings: 3 ROS ROS Narrative Review of systems: General: Patient denies fever or chills. HENT: Denies headache, denies stuffy nose, denies sore throat EYES: Denies changes in vision or discharge from eyes. Resp: Denies cough, denies shortness of breath Cardiac: Denies chest pain, palpitations or heart racing. GI: Denies abdominal pain, denies changes in bowel, denies nausea or vomiting : Denies changes in urination Extremity: Patient admits to swelling in her Right wrist and Left elbow with disfiguration immediately after fall. Musculoskeletal: Feels somewhat generally weak and unwell with arthralgias in the Right wrist and Left elbow. Neuro: Denies any numbness/tingling Heme: Denies any bleeding or bruising Skin: Denies rashes Psychiatric: No complaints voiced related uncontrolled depression or anxiety Endocrine: No polyuria, polydipsia or polyphagia. The rest of the 14 point ROS was negative except for positives in HPI. Vital Signs Vital Signs Vital Signs: 11/30/23 15:03 11/30/23 15:06 11/30/23 17:24 Temperature 98.0 F Temperature Source Temporal Pulse Rate 85 101 H Pulse Rate [1 (Initial Baseline)] Pulse Rate [2] Pulse Rate [3] Pulse Rate [4] Respiratory Rate 18 18 Respiratory Rate [1 (Initial Baseline)] Respiratory Rate [2] Respiratory Rate [3] Respiratory Rate [4] Respiratory Effort Normal Respiratory Depth Normal Respiratory Pattern Normal Blood Pressure 150/87 H 157/100 H Blood Pressure [3] Blood Pressure [4] Blood Pressure Mean 108 Pulse Ox 94 94 Oxygen Delivery Method Room Air Room Air Oxygen Delivery Method [1 (Initial Baseline)] Oxygen Delivery Method [2] Oxygen Delivery Method [3] Oxygen Delivery Method [4] Oxygen Flow Rate (L/min) [1 (Initial Baseline)] Oxygen Flow Rate (L/min) [2] Oxygen Flow Rate (L/min) [3] Oxygen Flow Rate (L/min) [4] 11/30/23 17:27 11/30/23 17:30 11/30/23 17:45 Temperature Temperature Source Pulse Rate 101 H Pulse Rate [1 (Initial Baseline)] 86 Pulse Rate [2] 84 Pulse Rate [3] 71 Pulse Rate [4] 72 Respiratory Rate 15 Respiratory Rate [1 (Initial Baseline)] 18 Respiratory Rate [2] 16 Respiratory Rate [3] 14 Respiratory Rate [4] 14 Respiratory Effort Respiratory Depth Respiratory Pattern Blood Pressure Blood Pressure [3] 123/61 H Blood Pressure [4] 116/75 Blood Pressure Mean Pulse Ox 94 Oxygen Delivery Method Room Air Oxygen Delivery Method [1 (Initial Baseline)] Nasal Cannula Oxygen Delivery Method [2] Nasal Cannula Oxygen Delivery Method [3] Nasal Cannula Oxygen Delivery Method [4] Nasal Cannula Oxygen Flow Rate (L/min) [1 (Initial Baseline)] 5 Oxygen Flow Rate (L/min) [2] 5 Oxygen Flow Rate (L/min) [3] 5 Oxygen Flow Rate (L/min) [4] 5 Weight Weight: 171 lb 1.259 oz Body Mass Index (BMI) 26.8 Physical Exam Const alert, oriented x3, no apparent distress, average body habitus and healthy appearing General Appearance: cooperative HEENT normocephalic, hearing grossly normal bilaterally and moist oral mucous membranes HEENT Narrative: Patient has an abrasion above her Left superior orbit with no active bleeding. Eyes PERRL, EOMs intact bilaterally and conjunctivae normal Neck no lymphadenopathy and supple Resp normal respiratory effort, no retractions, no use of accessory muscles and clear to auscultation bilaterally Cardio regular rate and regular rhythm GI normal to inspection, nondistended, normoactive bowel sounds, soft to palpation, non-tender and non-distended Extremity normal to inspection and full ROM Skin Skin Narrative: Patient has abrasions over her Left orbit and Left elbow. Neuro oriented x3, CN's II-XII intact bilaterally, moves all extremities and no focal motor deficits Speech: speech normal Psych affect normal Results Medical Records Data Attestation: I reviewed the patient's medical records Lab / Micro Data Attestation: I reviewed the patient's lab results. 11/30/23 18:00 11/30/23 18:00 Labs: Laboratory Results - last 24 hr 11/30/23 17:16: PT 13.8, INR 1.1, APTT 24.0 L 11/30/23 18:00: WBC 9.6, RBC 4.46, Hgb 8.9 L, Hct 31.1 L, MCV 69.7 L, MCH 20.0 L, MCHC 28.6 L, RDW Std Deviation 48.5 H, RDW Coeff of Jaime 19.8 H, Plt Count 337, MPV 8.9, Immature Gran % (Auto) 0.300, Neut % (Auto) 75.8 H, Lymph % (Auto) 14.7 L, [place] % (Auto) 6.7, Eos % (Auto) 2.2, Baso % (Auto) 0.3, Absolute Neuts (auto) 7.3, Absolute Lymphs (auto) 1.42, Nucleated RBC % 0, Sodium 137, Potassium 3.9, Chloride 108 H, Carbon Dioxide 23.0, Anion Gap 6, BUN 16, Creatinine 0.68, Estim Creat Clear Calc 70.24, Est GFR (MDRD) Af Amer 109, Est GFR (MDRD) Non-Af 90, BUN/Creatinine Ratio 23.4 H, Glucose 89, Calcium 8.9 Imaging Radiology Impression Brain CT 11/30/23 15:18 IMPRESSION: Negative head/brain CT without intravenous contrast. Electronically Signed: Sunny Webb MD at 16:48 EDT , Cervical Spine CT 11/30/23 15:18 IMPRESSION: 1. No acute osseous abnormalities of the cervical spine. 2. Degenerative changes with disc space narrowing and bony neural foraminal narrowing. Electronically Signed: Sunny Webb MD at 16:07 EDT , Elbow X-Ray 11/30/23 15:18 IMPRESSION: Fracture of the olecranon with 2.5 cm distraction. There is soft tissue swelling present. Electronically Signed: Sunny Webb MD at 16:54 EDT , Wrist X-Ray 11/30/23 15:18 IMPRESSION: Fracture of the distal radius with posterior angulation. There is also an apparent fracture of the distal ulna with minimal impaction. Electronically Signed: Sunny Webb MD at 17:04 EDT , Wrist X-Ray 11/30/23 17:45 IMPRESSION: Closed reduction with casting of a fracture of the distal radius. Electronically Signed: Sunny Webb MD at 18:05 EDT , Assessment & Plan Assessment/Plan (1) Elbow fracture: QUALIFIERS: Encounter type: initial encounter Fracture type: closed Laterality: left Qualified Code(s): S42.402A - Unspecified fracture of lower end of left humerus, initial encounter for closed fracture (2) Wrist fracture: QUALIFIERS: Encounter type: initial encounter Fracture type: closed Laterality: right Qualified Code(s): S62.101A - Fracture of unspecified carpal bone, right wrist, initial encounter for closed fracture (3) Fall: QUALIFIERS: Encounter type: initial encounter Qualified Code(s): W19.XXXA - Unspecified fall, initial encounter (4) Head injury: QUALIFIERS: Encounter type: initial encounter Qualified Code(s): S09.90XA - Unspecified injury of head, initial encounter (5) Abrasion of forehead: QUALIFIERS: Encounter type: initial encounter Qualified Code(s): S00.81XA - Abrasion of other part of head, initial encounter PLAN: Plan 1. Mechanical fall with subsequent x-ray evidence of fracture of the Right distal radius with posterior angulation with an apparent fracture of the distal ulna with minimal impaction in addition to x-ray evidence of fracture of the Left olecranon with ~2.5 cm distraction with soft tissue swelling present causing patient to be unable to perform ADLs with the ER provider suspecting patient would benefit from at least short-term ECF placement if she cannot care for self at home in her current condition - Admit to general medical floor. Give Tylenol prn for [id number] (level 1-5/10) pain or fever. Give Morphine IV prn for severe (level 6-10/10) pain. This patient has no absolute contraindications to medically necessary medium risk orthopedic surgery. Finally, we will consult Dr. Ledesma of orthopedics to see this patient on-rounds in the AM for further recommendations regarding ORIF with help appreciated in advance. 2. Essential hypertension - Continue current regimen plus give as needed IV hydralazine for systolic blood pressure greater than 160 mmHg. 3. Hyperlipidemia- Resume statin as previous. 4. Hypothyroidism - Continue Synthroid. 5. Overweight; with BMI of 26.8 this admission - Weight loss will be recommended. 6. DM-2; of unknown control on metformin and Farxiga - ADA diet. FSBS q. AC/HS plus SSI. Check HgbA1c to objectively evaluate quality of diabetic control. 7. History of breast cancer; s/p Left lumpectomy - Noted. 8. History of asthma - Stable with no evidence of flare. 9. Neuropathy of both feet - Stable. 10. History of skin cancer - Noted. 11. History of leg cramps - Stable. 12. Depression - Continue home regimen as previous. 13. GERD; with hiatal hernia - Resume PPI. 14. Gout - Chronic and stable with no evidence of acute flare. 15. Osteoarthritis - Give Tylenol prn. 16. DVT prophylaxis - SCD's only with likely impending ORIF. Total time: Approximately 55 minutes. Charges/Coding Visit Charges Inpatient E&M: 21051 Init Hosp L2 Multi Select Codes Visit Charges Visit Charges: 44713 Init Hosp L2
[2023-11-30] MEDS: Oxycodone/Apap 5/325 Tablet PO (19:42)
[2023-11-30] MEDS: Levothyroxine 112 MCG Tablet PO (22:28)
[2023-11-30] MEDS: 0.9% Normal Saline (1000mL) 1,000 ML 70 ML IV (22:28)
[2023-11-30] MEDS: Atorvastatin Calcium 20 MG Tablet PO (22:28)
[2023-11-30] MEDS: Morphine 2 MG/ML Syringe IV (22:28)
[2023-11-30] MEDS: 0.9% Saline Lock 10 ML Syringe IV (22:28)
[2023-11-30 23:56] LABS: Bedside Glucose 113 mg/dL (74-106)
[2023-12-01 03:18] VITALS: BMI 24.8
[2023-12-01 04:12] VITALS: BP 137/50; PULSE 67; RESP 16; TEMP 36.4; O2SAT 93
[2023-12-01 05:23] LABS: Absolute Lymphocyte Count 1.46 X10^3/uL (0.83-4.51); Absolute Neutrophil Count 3.8 X10^3/uL (2.0-7.7); Basophil# 0.02 X10^3/uL; Basophil% 0.3 % (0-1); Eosinophil# 0.29 X10^3/uL; Eosinophils% 4.7 % (0-5); Hematocrit 28.8 % (37-47); Hemoglobin 8.4 g/dL (12.0-15.0); Lymphocyte # 1.46 X10^3/ul (0.83-4.51); Lymphocyte % 23.5 % (19-41); Mean Corp Hgb Conc 29.2 g/dL (32-36); Mean Corpuscular Hgb 20.5 pg (27.0-32.0); Mean Corpuscular Volume 70.4 fL (81-99); Mean Platelet Vol. 8.6 fl (6.2-12.0); Monocyte# 0.62 X10^3/uL; NRBC Flagged by Analyzer 0 % (0-5); Neutrophil % 61.3 % (47-70); Platelet Count 296 K/mm3 (150-450); RBC Distribution Width CV 19.6 % (11.6-14.6); RBC Distribution Width SD 49.3 fl (35.1-43.9); Red Blood Count 4.09 M/mm3 (4.2-5.4); White Blood Count 6.2 K/mm3 (4.4-11.0)
[2023-12-01 06:06] LABS: ALB/GLOB Ratio 0.9 RATIO (0.9-2.4); AST(SGOT) 16 U/L (15-37); Alanine Aminotransfer ALT/SGPT 15 U/L (13-56); Albumin, Serum 3.2 g/dL (3.2-5.0); Alkaline Phosphatase 83 U/L (45-117); Anion Gap 5 (5-15); BUN 11 mg/dL (7-18); BUN/Creat Ratio 17.7 RATIO (10-20); Calcium,Total 8.4 mg/dL (8.5-10.1); Chloride 108 mmol/L (98-107); Creatinine, Serum 0.62 mg/dL (0.55-1.02); EST Glomerular Filtration Rate 101 mL/min (>60); Est Glom Filt Rate - Afr Amer 122 mL/min (>60); Estimated Creatinine Clearance 66.46 ml/min; Globulin 3.6 g/dL (2.2-4.2); Glucose 105 mg/dL (74-106); Magnesium 2.1 mg/dL (1.6-2.6); Phosphorus 3.9 mg/dL (2.5-4.9); Potassium 3.9 mmol/L (3.5-5.1); Protein, Total 6.8 g/dL (6.4-8.2); Sodium Level 139 mmol/L (136-145); Thyroid Stim Hormone (TSH) 1.48 uIU/mL (0.358-3.74)
[2023-12-01] MEDS: Morphine 2 MG/ML Syringe IV ×4 (06:31→22:18)
[2023-12-01 08:01] VITALS: O2SAT 93
--- NOTE | 2023-12-01 08:41 | PN.HOSP_ITS ---
Reason for Visit Reason for Visit: Diagnoses Abrasion of other part of head, initial encounter (11/30/23) Unspecified injury of head, initial encounter (11/30/23) Unspecified fracture of lower end of left humerus, initial encounter for closed fracture (11/30/23) Unspecified fracture of lower end of unspecified humerus, initial encounter for closed fracture (11/30/23) Fracture of unspecified carpal bone, right wrist, initial encounter for closed fracture (11/30/23) Fracture of unspecified carpal bone, unspecified wrist, initial encounter for closed fracture (11/30/23) Unspecified fall, initial encounter (11/30/23) Subjective Subjective Feeling okay. Objective Data Objective Data Vital Signs: Vital Signs Temp Pulse Resp BP Pulse Ox O2 Del Method O2 Flow Rate 36.4 C L 67 16 137/50 H 93 Room Air 5 12/01/23 04:12 12/01/23 04:12 12/01/23 04:12 12/01/23 04:12 12/01/23 08:01 12/01/23 08:01 11/30/23 17:30 Oxygen Flow Rate (L/min) [4] 5 Oxygen Flow Rate (L/min) [3] 5 Oxygen Flow Rate (L/min) [2] 5 Oxygen Flow Rate (L/min) [1 ( 5 Initial Baseline)] Oxygen Delivery Method [4] Nasal Cannula Oxygen Delivery Method [3] Nasal Cannula Oxygen Delivery Method [2] Nasal Cannula Oxygen Delivery Method [1 ( Nasal Cannula Initial Baseline)] Oxygen Delivery Method Room Air Weight: 71.9 kg Body Mass Index (BMI) 24.8 Lab / Micro Data 12/01/23 05:14 12/01/23 05:14 Labs: Laboratory Results - last 24 hr 11/30/23 17:16: PT 13.8, INR 1.1, APTT 24.0 L 11/30/23 18:00: WBC 9.6, RBC 4.46, Hgb 8.9 L, Hct 31.1 L, MCV 69.7 L, MCH 20.0 L , MCHC 28.6 L, RDW Std Deviation 48.5 H, RDW Coeff of Jaime 19.8 H, Plt Count 337, MPV 8.9, Immature Gran % (Auto) 0.300, Neut % (Auto) 75.8 H, Lymph % (Auto) 14.7 L, [place] % (Auto) 6.7, Eos % (Auto) 2.2, Baso % (Auto) 0.3, Absolute Neuts (auto) 7.3, Absolute Lymphs (auto) 1.42, Nucleated RBC % 0, Sodium 137, Potassium 3.9, Chloride 108 H, Carbon Dioxide 23.0, Anion Gap 6, BUN 16, Creatinine 0.68, Estim Creat Clear Calc 70.24, Est GFR (MDRD) Af Amer 109, Est GFR (MDRD) Non-Af 90, B UN/Creatinine Ratio 23.4 H, Glucose 89, Calcium 8.9 11/30/23 22:34: POC Glucose 113 H 12/01/23 05:14: WBC 6.2, RBC 4.09 L, Hgb 8.4 L, Hct 28.8 L, MCV 70.4 L, MCH 20.5 L, MCHC 29.2 L, RDW Std Deviation 49.3 H, RDW Coeff of Jaime 19.6 H, Plt Count 296, MPV 8.6, Immature Gran % (Auto) 0.200, Neut % (Auto) 61.3, Lymph % (Auto) 23.5, [place] % (Auto) 10.0, Eos % (Auto) 4.7, Baso % (Auto) 0.3, Absolute Neuts (auto) 3.8, Absolute Lymphs (auto) 1.46, Nucleated RBC % 0, Sodium 139, Potassium 3.9, Chloride 108 H, Carbon Dioxide 26.0, Anion Gap 5, BUN 11, Creatinine 0.62, Estim Creat Clear Calc 66.46, Est GFR (MDRD) Af Amer 122, Est GFR (MDRD) Non-Af 101, BUN/Creatinine Ratio 17.7, Glucose 105, Calcium 8.4 L, Phosphorus 3.9, Magnesium 2.1, Total Bilirubin 0.40, AST 16, ALT 15, Alkaline Phosphatase 83, Total Protein 6.8, Albumin 3.2, Globulin 3.6, Albumin/Globulin Ratio 0.9, TSH 1.48, Blood Type O POSITIVE, Antibody Screen NEGATIVE Radiography Diagnostic Testing: Radiology Impression Brain CT 11/30/23 15:18 IMPRESSION: Negative head/brain CT without intravenous contrast. Electronically Signed: Sunny Webb MD at 16:48 EDT Reading Location ID and State: [facility] / [place] Tel , Service support , Cervical Spine CT 11/30/23 15:18 IMPRESSION: 1. No acute osseous abnormalities of the cervical spine. 2. Degenerative changes with disc space narrowing and bony neural foraminal narrowing. Electronically Signed: Sunny Webb MD at 16:07 EDT Reading Location ID and State: [facility] / [place] Tel , Service support , Elbow X-Ray 11/30/23 15:18 IMPRESSION: Fracture of the olecranon with 2.5 cm distraction. There is soft tissue swelling present. Electronically Signed: Sunny Webb MD at 16:54 EDT Reading Location ID and State: [facility] / [place] Tel , Service support , Wrist X-Ray 11/30/23 15:18 IMPRESSION: Fracture of the distal radius with posterior angulation. There is also an apparent fracture of the distal ulna with minimal impaction. Electronically Signed: Sunny Webb MD at 17:04 EDT Reading Location ID and State: [facility] / [place] Tel , Service support , Wrist X-Ray 11/30/23 17:45 IMPRESSION: Closed reduction with casting of a fracture of the distal radius. Electronically Signed: Sunny Webb MD at 18:05 EDT Reading Location ID and State: [facility] / [place] Tel , Service support , Physical Exam Const alert and no apparent distress HEENT head/scalp atraumatic and moist oral mucous membranes Resp normal respiratory effort, no retractions, no use of accessory muscles and clear to auscultation bilaterally Cardio regular rate, regular rhythm, S1 normal heart sound and S2 normal heart sound GI normal to inspection, nondistended, normoactive bowel sounds and soft to palpation Extremity Extremity Narrative: right wrist and forearm casted. Normal cap refill finger. Left elbow, forearm and proximal arm casted. Neuro moves all extremities Sensorium / Orientation: awake and alert Psych affect normal Assessment & Plan Assessment/Plan (1) Elbow fracture: QUALIFIERS: Encounter type: initial encounter Fracture type: c losed Laterality: left Qualified Code(s): S42.402A - Unspecified fracture of lower end of left humerus, initial encounter for closed fracture (2) Wrist fracture: QUALIFIERS: Encounter type: initial encounter Fracture type: c losed Laterality: right Qualified Code(s): S62.101A - Fracture of unspecified carpal bone, right wrist, initial encounter for closed fracture (3) Fall: QUALIFIERS: Encounter type: initial encounter Qualified Code(s): W19.XXXA - Unspecified fall, initial encounter (4) Head injury: QUALIFIERS: Encounter type: initial encounter Qualified Code(s): S09.90XA - Unspecified injury of head, initial encounter (5) Abrasion of forehead: QUALIFIERS: Encounter type: initial encounter Qualified Code(s): S00.81XA - Abrasion of other part of head, initial encounter PLAN: Plan Arm Fractures: * s/p fall * Left olecranon fracture with 2.5cm of distraction. Right distal radius with posterior angulation. Right distal ulna with minimal impaction * Right wrist reduced and casted in ED. Left elbow casted * ortho consult for recs. Previously medically cleared in case surgery would be necessary. * pain control * 25-OH d level 55.2, no replacement necessary. * NWB RUE and LUE pending ortho evaluation. Debility * PT OT * CM to assist on disposition VTE prophylaxis - SCD's for now. Charges/Coding Visit Charges Inpatient E&M: 52353 Subs Hosp L2
[2023-12-01] MEDS: Escitalopram Oxalate 20 MG Tablet PO (09:02)
[2023-12-01 09:14] LABS: Vitamin D,25 Hydroxy 55.2 ng/mL
[2023-12-01 09:30] VITALS: BP 134/86; PULSE 76; RESP 16; TEMP 37.1; O2SAT 96
--- NOTE | 2023-12-01 10:29 | CASEMGMT ---
Discharge Planning A list of?SNF providers including quality and resource use data and consistent with the patient's preferred geographic region, medical needs, and insurance network was created in [employer] Guide.? This list was provided to the SW. Marley Miller Discharge Planning Asst.
[2023-12-01] MEDS: 0.9% Normal Saline (1000mL) 1,000 ML 70 ML IV (11:22)
[2023-12-01 11:34] LABS: Bedside Glucose 118 mg/dL (74-106)
--- NOTE | 2023-12-01 14:30 | CASEMGMT ---
RN CM Face to Face with patient for initial transition planning/care coordination assessment. RN CM introduced self and role at [facility]. Patient lying in bed, alert and oriented, cousin at bedside. Patient willing to participate in assessment and is able to answer all questions appropriately. Care providers, pharmacy, and demographics verified. PCP: Mary Jane Specialists: Liam, swimming pool cleaner; Murali, application integration architect; Daniel, podriatrist; Jose Ramon, oncologist; Jaiden, ortho Preferred Pharmacy: [facility]; [facility] retail at discharge. Insurance: [employer] Prescription Benefit: yes Living Will/HPOA: yes, cousin Sharon Ly LNOK: cousin Living Arrangements: Patient lives alone in a single story home with 2 steps and grab bars to enter. Patient was independent. Transportation: self, cousin DME/HHC: Patient has raised toilet, cane, and grab bars at home. No previous HHC or SNF. Patient wishes to discharge home. RN CM discuss bilateral upper extremity fracture and how would patient be able to care for self at home. Patient voiced understanding. RN CM discussed possible SNF at discharge. Patient states she will consider, ortho and therapy pending. RN CM provided patient with SNF list. Patient and cousin voiced appreciation. Patient states she has no further needs or concerns at this time. CM to follow for discharge planning needs that may arise. Disposition Plan: TBD, anticipate SNF vs HHC pending ortho consult and therapy evals. Kaylen SOOD, RN, CM
--- NOTE | 2023-12-01 15:19 | CON.PCM_ITS ---
Assessment & Plan Assessment/Plan (1) Displaced fracture of olecranon process of left ulna with intra-articular extension: PLAN: Natural history of the disease process and treatment options were discussed with the patient. I did explain to the patient that based on the distraction of the fracture and intra-articular process nonoperative interventions were available however not recommended. Ultimately I recommended open reduction internal fixation of the left ulna fracture as an appropriate treatment option. The significant distraction at this point without fixation function will likely be limited. Risk and benefits of the procedure were discussed with patient including but limited to blood loss, DVTs, PEs, nervous damage to infection, general risk of anesthesia including loss of life. We also discussed nonunion, malunion hardware failure and painful hardware that could occur. Patient demonstrates an understanding and does wish to proceed with open reduction internal fixation of her left ulna fracture. (2) Closed extraarticular fracture of distal end of right radius: PLAN: Natural history of the disease process and treatment options were discussed the patient. I did explain to the patient operative and nonoperative intervention. I did explain nonoperative intervention could be appropriate however, considering the circumstances with polytrauma I did feel that recommendation for surgical intervention was appropriate. Discussed failed surgical intervention most appropriate would be open reduction internal fixation. At this time I recommended we proceed with open reduction of fixation of the right wrist at the time that we do the left elbow. Patient demonstrated understanding and wished to proceed in this fashion. Risk of the procedure included but were not limited to blood loss, DVTs, PEs, nervous damage complex, the risk of anesthesia include loss of life. We also discussed hardware failure, malunion, nonunion, painful hardware and tendon ruptures associated with volar plating hardware. Patient will be made n.p.o. after midnight. Will plan for surgery tomorrow. Antibiotics will be ordered on-call to the operating room. (3) Diabetes: QUALIFIERS: Diabetes mellitus type: type 2 Diabetes mellitus senior care insulin use: without senior care use Diabetes mellitus complication status: without complication Qualified Code(s): E11.9 - Type 2 diabetes mellitus without complications PLAN: Per primary service, patient's blood glucose appears to be adequately controlled. (4) Hyperlipidemia: QUALIFIERS: Hyperlipidemia type: mixed hyperlipidemia Qualified Code(s): E78.2 - Mixed hyperlipidemia PLAN: Per primary service (5) Hx of breast cancer: PLAN: Patient's x-rays were reviewed no bony lesions are appreciated, does not appear to be associated with pathologic fracture. (6) Anemia: PLAN: Anemia was discussed with patient. I did explain that we will use tourniquet for surgery however this does place her at increased risk for need for blood transfusion associated with surgeries for bilateral upper extremities. HPI Consult Data Date of Consult: 12/01/23 HPI Narrative Reason for Consultation: Bilateral upper extremity injuries status post fall HPI Narrative: LAMAR ROMEO, is a 68 F who presents bilateral upper extremity pain. Patient has pain in her right wrist. Pain in the left elbow. Patient notes she was getting out of her vehicle yesterday and tripped over the curb went to catch herself with both hands presented the emergency department left elbow pain and right wrist pain.Patient currently reports pain in bilateral extremities is 6 out of 10. She is splinted on the right and is status post closed reduction and also has a posterior splint on the left. She denies any numbness tingling in her hands however she notes difficulty with thumb extension. Patient does have a history of left wrist fracture fixed a year ago by my partner. She was admitted to the hospital due to inability to perform ADLs with bilateral upper extremity splints. She presents today in good spirits and does have a dog at home she would like to return home to take care of.Patient denies any associated numbness and tingling. She has a history of diabetes. She has a history of anemia which she is working with her primary care physician to establish a definitive diagnosis. [facility] Medical History Hypothyroidism Wears glasses Cancer Diabetes Gout High cholesterol Back pain Dietary restriction History of hiatal hernia Non-smoker Asthma Leg cramps History of stress test History of echocardiogram Cardiology follow-up encounter Hyperlipidemia Hypothyroidism (acquired) History of Papanicolaou smear of cervix Hx of mammogram Skin cancer GERD (gastroesophageal reflux disease) Osteoarthritis Neuropathy of both feet Hx of cataract Hx of breast cancer Arthritis Anxiety and depression Environmental allergies Home Medications ?Medication ?Instructions ?Recorded ?Last Taken ?Type escitalopram oxalate 20 mg tablet 20 mg PO DAILY 12/30/19 Unknown History cholecalciferol (vitamin D3) 125 125 mcg PO DAILY 06/27/20 Unknown History mcg (5,000 unit) capsule levothyroxine 112 mcg tablet 112 mcg PO QHS 06/27/20 Unknown History allopurinol 300 mg tablet 300 mg PO DAILY 06/25/21 Unknown History celecoxib 200 mg capsule (Celebrex) 200 mg PO DAILY 06/25/21 Unknown History metformin 500 mg tablet 500 mg PO BID 07/10/22 Unknown History aspirin 81 mg tablet,delayed 81 mg PO DAILY 08/04/22 10/14/22 History release (Adult Aspirin Regimen) fluticasone 250 mcg-salmeterol 50 1 inh inhalation Q12H 10/14/22 Unknown History mcg/dose blistr powdr for inhalation (Advair Diskus) omeprazole magnesium 20 mg 20 mg PO QODAY 10/14/22 Unknown History tablet,delayed release (Prilosec OTC) atorvastatin 20 mg tablet 20 mg PO DAILY 08/25/23 Unknown History dapagliflozin propanediol 10 mg 10 mg PO DAILY 08/25/23 08/25/23 10:11 History tablet (Farxiga) Allergy/AdvReac Type Severity Reaction Status Date / Time house dust Allergy Severe Shortness Verified 08/25/23 09:25 of breath mold Allergy Severe Shortness Verified 08/25/23 09:25 of breath tree and shrub pollen Allergy Severe Shortness Verified 08/25/23 09:25 of breath Family History Brother Myocardial infarction, Onset Age: 47 Brother Myocardial infarction, Onset Age: 43 Brother Myocardial infarction, Onset Age: 77 Unknown Myocardial infarction Ages 50-59 Sister Myocardial infarction, Onset Age: 57 Other Arthritis Cancer Crohns disease Diabetes Heart disease High cholesterol Hx of stroke associated with blood clotting tendency Hypertension Kidney disease Surgical History History of surgery on left wrist History of cardiac catheterization History of bilateral breast reduction surgery Hx of colonoscopy History of appendectomy History of lumpectomy Social History Smoking Status: Never smoker alcohol intake: never substance use type: does not use caffeine: Yes Type: tea Number of servings: 3 ROS ROS Narrative 14 point review of systems outside was mentioned in the HPI is negative. Physical Exam Const alert, oriented x3 and no apparent distress General Appearance: cooperative HEENT normocephalic Nose: external nose normal Resp normal respiratory effort Effort and Inspection: able to speak in complete sentences Cardio Jugular Venous Distention: Negative for JVD GI non-distended Extremity Extremity Narrative: Right upper extremity. Patient is in a short arm anterior posterior splint. Digits are being encouraged on. Patient able to move all digits. Difficulty with thumb extension. Ecchymosis over the thumb. Digits are warm and pink with brisk cap refill. Sensations intact light touch R/M/U distally. Skin exam was deferred secondary to placement of splint. Left upper extremity: Skin exam deferred for patient's comfort with splint on. Patient able to thumbs up, okay sign, cross his fingers. Digits are all warm and pink with brisk cap refill. Sensations intact light touch R/M/U distally. Skin General Skin Exam: no breakdown Neuro oriented x3 Psych affect normal Medical Records Data Attestation: I reviewed the patient's medical records Lab / Micro Data Attestation: I reviewed the patient's lab results. (Anemia was discussed with patient.) 12/01/23 05:14 12/01/23 05:14 Labs: Laboratory Results - last 24 hr 11/30/23 17:16: PT 13.8, INR 1.1, APTT 24.0 L 11/30/23 18:00: WBC 9.6, RBC 4.46, Hgb 8.9 L, Hct 31.1 L, MCV 69.7 L, MCH 20.0 L , MCHC 28.6 L, RDW Std Deviation 48.5 H, RDW Coeff of Jaime 19.8 H, Plt Count 337, MPV 8.9, Immature Gran % (Auto) 0.300, Neut % (Auto) 75.8 H, Lymph % (Auto) 14.7 L, [place] % (Auto) 6.7, Eos % (Auto) 2.2, Baso % (Auto) 0.3, Absolute Neuts (auto) 7.3, Absolute Lymphs (auto) 1.42, Nucleated RBC % 0, Sodium 137, Potassium 3.9, Chloride 108 H, Carbon Dioxide 23.0, Anion Gap 6, BUN 16, Creatinine 0.68, Estim Creat Clear Calc 70.24, Est GFR (MDRD) Af Amer 109, Est GFR (MDRD) Non-Af 90, B UN/Creatinine Ratio 23.4 H, Glucose 89, Calcium 8.9 11/30/23 22:34: POC Glucose 113 H 12/01/23 05:14: WBC 6.2, RBC 4.09 L, Hgb 8.4 L, Hct 28.8 L, MCV 70.4 L, MCH 20.5 L, MCHC 29.2 L, RDW Std Deviation 49.3 H, RDW Coeff of Jaime 19.6 H, Plt Count 296, MPV 8.6, Immature Gran % (Auto) 0.200, Neut % (Auto) 61.3, Lymph % (Auto) 23.5, [place] % (Auto) 10.0, Eos % (Auto) 4.7, Baso % (Auto) 0.3, Absolute Neuts (auto) 3.8, Absolute Lymphs (auto) 1.46, Nucleated RBC % 0, Sodium 139, Potassium 3.9, Chloride 108 H, Carbon Dioxide 26.0, Anion Gap 5, BUN 11, Creatinine 0.62, Estim Creat Clear Calc 66.46, Est GFR (MDRD) Af Amer 122, Est GFR (MDRD) Non-Af 101, BUN/Creatinine Ratio 17.7, Glucose 105, Calcium 8.4 L, Phosphorus 3.9, Magnesium 2.1, Total Bilirubin 0.40, AST 16, ALT 15, Alkaline Phosphatase 83, Total Protein 6.8, Albumin 3.2, Globulin 3.6, Albumin/Globulin Ratio 0.9, Vitamin D 25-Hydroxy 55.2, TSH 1.48, Blood Type O POSITIVE, Antibody Screen NEGATIVE 12/01/23 11:17: POC Glucose 118 H Most recent available hemoglobin A1c from September 2022 5.9 Imaging Radiology Impression Brain CT 11/30/23 15:18 IMPRESSION: Negative head/brain CT without intravenous contrast. Electronically Signed: Sunny Webb MD at 16:48 EDT , Cervical Spine CT 11/30/23 15:18 IMPRESSION: 1. No acute osseous abnormalities of the cervical spine. 2. Degenerative changes with disc space narrowing and bony neural foraminal narrowing. Electronically Signed: Sunny Webb MD at 16:07 EDT , Elbow X-Ray 11/30/23 15:18 IMPRESSION: Fracture of the olecranon with 2.5 cm distraction. There is soft tissue swelling present. Electronically Signed: Sunny Webb MD at 16:54 EDT , Wrist X-Ray 11/30/23 15:18 IMPRESSION: Fracture of the distal radius with posterior angulation. There is also an apparent fracture of the distal ulna with minimal impaction. Electronically Signed: Sunny Webb MD at 17:04 EDT , Wrist X-Ray 11/30/23 17:45 IMPRESSION: Closed reduction with casting of a fracture of the distal radius. Electronically Signed: Sunny Webb MD at 18:05 EDT , Imaging results were reviewed. Agree with above. Patient does have minimally displaced distal ulna fracture which is stable after reduction. Distal radius fracture on the right is X reticular. Displaced simple intra-articular olecranon fracture.
[2023-12-01 15:30] VITALS: BP 142/93; PULSE 86; RESP 16; TEMP 36.4; O2SAT 94
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
--- NOTE | 2023-12-01 16:13 | CASEMGMT ---
Social Work SW met w/pt in regard to discharge plan. Pt does think she will need to go somewhere for rehab. She is having surgery on both arms tomorrow. Pt would like to go to [facility] if they take her insurance, if not, [facility] is her next choice. SW left a message for [facility], and d/c financial planning advisor Marley will make referral to [facility]. SW to follow up tomorrow. KRISTI Galvan
[2023-12-01 16:45] LABS: Bedside Glucose 111 mg/dL (74-106)
[2023-12-01] MEDS: 0.9% Saline Lock 10 ML Syringe IV ×2 (17:57→22:17)
[2023-12-01 21:48] VITALS: BP 136/51; PULSE 87; RESP 16; TEMP 37.2; O2SAT 93
[2023-12-01] MEDS: Levothyroxine 112 MCG Tablet PO (21:55)
[2023-12-01] MEDS: Atorvastatin Calcium 20 MG Tablet PO (21:55)
[2023-12-01 22:47] LABS: Bedside Glucose 106 mg/dL (74-106)
[2023-12-02] VITALS (14 sets, daily range): BP systolic 95–172; BP diastolic 52–93; PULSE 70–89; RESP 12–18; TEMP 36.1–37.2; O2SAT 90–100; BMI 28.0
[2023-12-02] MEDS: 0.9% Normal Saline (1000mL) 1,000 ML 70 ML IV ×2 (01:40→18:07)
--- NOTE | 2023-12-02 06:00 | EKG12_ITS ---
Test Reason : PRE OP Blood Pressure : / mmHG Vent. Rate : 082 BPM Atrial Rate : 082 BPM P-R Int : 166 ms QRS Dur : 086 ms QT Int : 372 ms P-R-T Axes : 033 042 051 degrees QTc Int : 434 ms Normal sinus rhythm Normal ECG When compared with ECG of 30-APR-2014 10:34, No significant change was found Confirmed by Ed Carrion ([id number]), restaurant expeditor PRIYANK MENDENHALL ([id number]) on 12/03/2023 6:09:34 AM Referred By: NELSON Confirmed By:Ed Carrion
[2023-12-02 06:33] LABS: Bedside Glucose 122 mg/dL (74-106)
--- NOTE | 2023-12-02 08:37 | CASEMGMT ---
Addendum entered by Marley Miller 12/03/23 09:12: Updates faxed to [facility]. Confirmation rec'd. Requested that precert be submitted. Marley Miller DC Planning Asst. Addendum entered by Marley Miller 12/02/23 11:10: [facility] has accepted patient. SW updated. Marley Miller DC Planning Asst. Original Note: Discharge Planning Referral sent to [facility] via [employer]. Marley Miller DC Planning Asst.
--- NOTE | 2023-12-02 08:56 | PN.HOSP_ITS ---
Reason for Visit Reason for Visit: Diagnoses Anemia, unspecified (11/30/23) Type 2 diabetes mellitus without complications (11/30/23) Mixed hyperlipidemia (11/30/23) Abrasion of other part of head, initial encounter (11/30/23) Unspecified injury of head, initial encounter (11/30/23) Unspecified fracture of lower end of left humerus, initial encounter for closed fracture (11/30/23) Unspecified fracture of lower end of unspecified humerus, initial encounter for closed fracture (11/30/23) Displaced fracture of olecranon process with intraarticular extension of left ulna, initial encounter for closed fracture (11/30/23) Other extraarticular fracture of lower end of right radius, initial encounter for closed fracture (11/30/23) Fracture of unspecified carpal bone, right wrist, initial encounter for closed fracture (11/30/23) Fracture of unspecified carpal bone, unspecified wrist, initial encounter for closed fracture (11/30/23) Unspecified fall, initial encounter (11/30/23) Personal history of malignant neoplasm of breast (11/30/23) Subjective Subjective Having arm pain post op. Objective Data Objective Data Vital Signs: Vital Signs Temp Pulse Resp BP Pulse Ox O2 Del Method O2 Flow Rate 37.2 C 83 16 158/59 H 93 Room Air 5 12/02/23 04:23 12/02/23 04:23 12/02/23 04:23 12/02/23 04:23 12/02/23 04:23 12/02/23 07:55 11/30/23 17:30 Oxygen Flow Rate (L/min) [4] 5 Oxygen Flow Rate (L/min) [3] 5 Oxygen Flow Rate (L/min) [2] 5 Oxygen Flow Rate (L/min) [1 ( 5 Initial Baseline)] Oxygen Delivery Method [4] Nasal Cannula Oxygen Delivery Method [3] Nasal Cannula Oxygen Delivery Method [2] Nasal Cannula Oxygen Delivery Method [1 ( Nasal Cannula Initial Baseline)] Oxygen Delivery Method Room Air Weight: 81 kg Body Mass Index (BMI) 28.0 Intake & Output: Intake and Output for Last 24 Hours 11/30/23 12/01/23 12/02/23 23:59 23:59 23:59 Intake Total 1853 / 1853 1000 / 1000 Balance 1853 / 1853 1000 / 1000 Lab / Micro Data 12/01/23 05:14 12/01/23 05:14 Labs: Laboratory Results - last 24 hr 12/01/23 05:14: Vitamin D 25-Hydroxy 55.2 12/01/23 11:17: POC Glucose 118 H 12/01/23 16:27: POC Glucose 111 H 12/01/23 21:57: POC Glucose 106 12/02/23 06:14: POC Glucose 122 H Physical Exam Const Constitutional Narrative: Seen in PACU. Groggy, but does interact. Afebrile. HEENT head/scalp atraumatic and moist oral mucous membranes Resp normal respiratory effort, no retractions, no use of accessory muscles and clear to auscultation bilaterally Cardio regular rate, regular rhythm, S1 normal heart sound and S2 normal heart sound GI normal to inspection, nondistended, normoactive bowel sounds and soft to palpation Extremity Extremity Narrative: bilateral arms casted. left arm in sling. Neuro oriented x3 and moves all extremities Sensorium / Orientation: awake and alert Assessment & Plan Assessment/Plan (1) Elbow fracture: QUALIFIERS: Encounter type: initial encounter Fracture type: c losed Laterality: left Qualified Code(s): S42.402A - Unspecified fracture of lower end of left humerus, initial encounter for closed fracture (2) Wrist fracture: QUALIFIERS: Encounter type: initial encounter Fracture type: c losed Laterality: right Qualified Code(s): S62.101A - Fracture of unspecified carpal bone, right wrist, initial encounter for closed fracture (3) Fall: QUALIFIERS: Encounter type: initial encounter Qualified Code(s): W19.XXXA - Unspecified fall, initial encounter (4) Head injury: QUALIFIERS: Encounter type: initial encounter Qualified Code(s): S09.90XA - Unspecified injury of head, initial encounter (5) Abrasion of forehead: QUALIFIERS: Encounter type: initial encounter Qualified Code(s): S00.81XA - Abrasion of other part of head, initial encounter PLAN: Plan Arm Fractures: * s/p fall * Left olecranon fracture with 2.5cm of distraction. Right distal radius with posterior angulation. Right distal ulna with minimal impaction * Right wrist reduced and casted in ED. Left elbow casted * ortho consult for recs. Previously medically cleared in case surgery would be necessary. Pt to have ORIF bilaterally. * pain control * 25-OH d level 55.2, no replacement necessary. * NWB RUE and LUE pending ortho evaluation. Debility * PT OT * CM to assist on disposition VTE prophylaxis - SCD's for now. Charges/Coding Visit Charges Inpatient E&M: 75156 Subs Hosp L2
[2023-12-02] MEDS: Cefazolin 2 GM in 0.9% Normal Saline (100mL Bag) 100 ML IV (11:58)
[2023-12-02] MEDS: Lactated Ringers 1,000 ML 15 ML IV (12:00)
--- NOTE | 2023-12-02 12:30 | RAD_ITS ---
STUDY: X-RAY - LEFT ELBOW REASON FOR EXAM: Female, 68 years old. Intraoperative digital documentation views. TECHNIQUE: 2 intraoperative digital documentation view(s) of the elbow. COMPARISON: November 30, 2023 FINDINGS: ORIF of olecranon with long cancellus screw. Anatomic alignment. Normal radiocapitellar and ulnotrochlear articulations. The soft tissue structures are normal. RAD/Elbow 2 Views IMPRESSION: ORIF as described. Electronically Signed: Brian Garrett MD at 13:32 EDT ,
--- NOTE | 2023-12-02 13:08 | RAD_ITS ---
STUDY: X-RAY - LEFT ELBOW REASON FOR EXAM: Female, 68 years old. Follow-up of ORIF of proximal left ulna. TECHNIQUE: 3 view(s) of the elbow. COMPARISON: December 02, 2023 earlier in the day FINDINGS: 3 views through casting material show long cancellus screw through the proximal ulna with anatomic alignment at the fracture site. No complicating features. RAD/Elbow 2 Views IMPRESSION: Postsurgical changes without complications. Electronically Signed: Brian Garrett MD at 15:38 EDT ,
--- NOTE | 2023-12-02 13:11 | OP.PCM_ITS ---
Report of Operation Date of Procedure: 12/02/23 Pre-Operative Diagnosis: 1. Left olecranon fracture 2. Right extra-articular distal radius fracture and distal ulna fracture Post-Operative Diagnosis: 1. Left olecranon fracture 2. Right extra-articular distal radius fracture and distal ulna fracture Surgery/Procedure Performed:: 1. Open reduction internal fixation left olecranon fracture 2. Open reduction internal fixation right X reticular distal radius fracture Description of Surgical Findings:: Stable olecranon reduction. Intramedullary screw. Surgeon: John Ledesma alcohol and drug counselor: Price Mobley Type of Anesthesia: General Anesthesiologist: Migel Mercado Special Medications: Ancef Description of Procedure: On the date of the procedure patient was reexamined the preoperative area. We again confirmed her understanding of her treatment plan. Additionally we discussed once more operative and nonoperative interventions available. Patient did wish to proceed with bilateral upper extremity surgeries. Right wrist was marked. The left elbow was marked. Patient was then taken back to the operating room where they were transferred to the table in the supine position. Anesthesia assumed control of the C-spine and airway and remained controlled throughout the remainder of the procedure. After patient was initially anesthetized all bony prominences identified well-padded. Patient was placed in the lateral cubitus position axillary roll was placed. Patient's left arm was placed over blankets so that he could bend to 90 degrees and supported by an armboard. Once we are happy with the position of the patient tourniquet was placed in the left upper arm and patient was prepped in a sterile fashion while the surgeon scrubbed. Upon reentering the room the left lower extremity was draped in a standard orthopedic fashion. Timeout was called everyone agreed upon the side, the site, the procedure to be performed, patient's identity and antibiotic given. Incision was marked out for a standard posterior elbow approach and Esmarch bandage was used to exsanguinate the extremity. Tourniquet was placed to 250 mmHg. Incision was then taken down through skin subtenons tissue fat down to fascia. Were then able to identify the fracture hematoma. Fracture hematoma was irrigated out and fracture ends were cleaned up. Once the fracture ends were cleaned up we drilled a small hole for our fracture reduction clamp to hold onto the bone. Once we did this we were able to reduce the fracture. Live x- ray was used to verify fracture reduction. Based on exploration of the fracture was 2 main fragments. There was a small 2 mm x 4 mm intra-articular fragment which was debrided and felt not to be viable or appropriately repairable. The rest of the joint was free of debris. Based on this fracture pattern we placed a K wire down the central canal and felt appropriate to place a 6.5 mm cannulated screw. Live x-ray was used to verify placement of the K wire. Cannulated screw was measured 105 mm. We overdrilled the proximal fracture fr agment and advanced the screw compressing the fracture. Clamp was removed and live x-ray was used to verify placement of the screw and final reduction. In order to get good compression on the bone a washer was used and the triceps was split in line with its fibers and washer was buried in the triceps. Wound was wilfred irrigated out normal saline once we obtain final x-rays were happy with our final results. #1 Vicryl was used to close the triceps split and 2-0 Vicryl and final skin closure was done with nylon sutures. Tourniquet was let down elbow was splinted in 90 degrees. Xeroform dressing was placed. Well-padded sterile dressing was placed. Splint was placed. At this time patient was then placed in the supine position and reposition for the right wrist open reduction internal fixation. Attention was directed towards the right wrist where tourniquet was placed on the right upper arm. All bony prominences were identified well-padded. Right upper extremity was then prepped in a sterile fashion while the surgeon scrubbed. Upon reentering the room the right upper extremity was draped in a standard orthopedic fashion. Timeout was again called for open reduction internal fixation of the right wrist. All parties agreed on appropriate side, site, procedure to be performed, patient's identity and antibiotics given. Esmarch bandage was used to exsanguinate the extremity and tourniquet was placed up to 250 mmHg. Standard volar incision was marked out an incision was taken down through skin subcutaneous tissue fat down to fascia. Superficial fascia of the FCR was identified and FCR was retracted ulnarly. Deep fascia of the FCR was in incised and the FPL was retracted ulnarly. Pronator quadratus was identified and dissected off the radial border of the radius. Fracture could not be identified. Reduction maneuver was performed and a 2.0 mm K wire was passed across the reduced fracture. Live x-ray was used to verify fracture reduction. Once were happy with fracture reduction we selected a 3 hole plate. The plate was pinned into place and size and position were verified. Once we are happy with this we then put a screw in the slotted hole proximally and verified appropriate position of the plate. Once we had this we placed a cortical screw distally in the styloid drawing the plate down to the bone completely in order to do this we did loosen up the slotted hole screw and finally tightened to back down to help maintain the reduction. Live x-ray was used to verify appropriate fracture reduction once the initial screws were placed proximally and distally as well as plate placement. Once we are happy with this we placed 2 locking screws in the distal fracture fragment and 2 locking screws proximally to secure the plate. On initial lateral views we felt the most ulnar screw angle was not to her liking and we redirected. Did not appear to be in the joint. Once we are finished there was no crepitus with range of motion of the wrist. Live x-rays to verify final plate placement and fracture reduction as well as screw placement. Once were happy with this the wound was copiously irrigated out normal saline. Pronator quadratus could not be repaired. 2-0 Vicryl and nylon sutures were used to close the wound. Xeroform dressing was placed. Full dressing was placed. Patient was awakened by anesthesia and transferred to the [facility] and then to the PACU for recovery in stable condition. Postop plan: Patient be nonweightbearing x 6 weeks for both extremities. Right wrist splint will be removed at her 2-week postoperative visit. Left elbow splint can be taken off 1 week postoperatively to begin elbow range of motion. Will begin progressive weightbearing at 6 weeks with strengthening based on appropriate healing radiographically. My physician assistant to the vice president was vital throughout the procedure. He was vital in position the patient vital in helping obtain and maintain reduction. His vital helping protect neurovascular structures intraoperatively. Finally he was vital and closure and splinting under my direct supervision. His knowledge of the procedure and anatomy aided in safe and expedient completion of the procedure. Grafts/Implants Used: Jackson 105 mm 6.5 cannulated screw, Jackson narrow 3-hole right distal rad Complications No intraoperative complications Admit VTE Documentation VTE Present on Admission: Yes VTE Mechan Device Prophylaxis: SCD's VTE Pharm Prophylaxis ordered?: No
--- NOTE | 2023-12-02 13:30 | RAD_ITS ---
STUDY: X-RAY - RIGHT WRIST REASON FOR EXAM: Female, 68 years old. Volar plate and screw fixation. Intraoperative digital documentation views. TECHNIQUE: 6 intraoperative digital documentation view(s) of the wrist were obtained. COMPARISON: Wrist x-rays dated November 30, 2023 FINDINGS: 6 intraoperative digital documentation views show placement of volar plate and screw fixation now with anatomic alignment at fracture site. 38.3 seconds of fluoroscopy time and radiation dose of 0.73mGy. RAD/Wrist 2 Views IMPRESSION: Intraoperative digital documentation views. Electronically Signed: Brian Garrett MD at 14:42 EDT ,
--- NOTE | 2023-12-02 15:15 | RAD_ITS ---
STUDY: X-RAY - RIGHT WRIST REASON FOR EXAM: Female, 68 years old. Postoperative evaluation after ORIF. TECHNIQUE: 4 view(s) of the wrist were obtained through casting material. COMPARISON: Earlier in the day. FINDINGS: 4 postsurgical views show volar plate and screw fixation and anatomic alignment without complications. Osteopenia with osteoarthritic changes, unaltered, are present. No other abnormality. RAD/Wrist min 3 Views IMPRESSION: Volar plate and screw fixation in anatomic alignment without complications. Stable osteopenia with osteoarthritic changes. Electronically Signed: Brian Garrett MD at 15:44 EDT ,
--- NOTE | 2023-12-02 16:05 | SUR.PHASEI ---
OR HAD AN IV IN THE TOP OF HER LEFT FOOT. IT GOT KINKED AND THE HOSPITALIST CAME DOWN AND PREFERED I PULL IT AND START ANOTHER ONE IN HER RIGHT AC. 22 IN RIGHT AC INITIATED AND PATENT.
[2023-12-02] MEDS: Ipratropium/Albuterol Sulfate 3 ML AMPUL.NEB INHALATION (16:46)
[2023-12-02 17:22] LABS: Bedside Glucose 109 mg/dL (74-106)
[2023-12-02] MEDS: 0.9% Saline Lock 10 ML Syringe IV (18:06)
[2023-12-02] MEDS: Morphine 2 MG/ML Syringe IV (18:18)
[2023-12-02] MEDS: Atorvastatin Calcium 20 MG Tablet PO (20:27)
[2023-12-02] MEDS: Acetaminophen 325 MG Tablet 650 MG PO (20:27)
[2023-12-02] MEDS: Levothyroxine 112 MCG Tablet PO (20:30)
[2023-12-02] MEDS: Insulin Lispro 100 UNIT/ML INSULN.PEN SC (20:48)
[2023-12-02 21:02] LABS: Bedside Glucose 220 mg/dL (74-106)
[2023-12-03] VITALS (9 sets, daily range): BP systolic 92–112; BP diastolic 47–64; PULSE 63–82; RESP 14–18; TEMP 36.6–36.9; O2SAT 92–98; BMI 27.7
[2023-12-03] MEDS: Acetaminophen 325 MG Tablet 650 MG PO ×4 (05:18→20:54)
[2023-12-03] MEDS: Albuterol 2.5 MG/3 ML VIAL.NEB. INHALATION ×2 (07:06→12:21)
[2023-12-03] MEDS: Budesonide Respules 0.5 MG/2 ML AMPUL.NEB. INHALATION (07:06)
--- NOTE | 2023-12-03 07:50 | PCM.PN.HOSP ---
Reason for Visit Reason for Visit: Diagnoses Anemia, unspecified (11/30/23) Type 2 diabetes mellitus without complications (11/30/23) Mixed hyperlipidemia (11/30/23) Abrasion of other part of head, initial encounter (11/30/23) Unspecified injury of head, initial encounter (11/30/23) Unspecified fracture of lower end of left humerus, initial encounter for closed fracture (11/30/23) Unspecified fracture of lower end of unspecified humerus, initial encounter for closed fracture (11/30/23) Displaced fracture of olecranon process with intraarticular extension of left ulna, initial encounter for closed fracture (11/30/23) Other extraarticular fracture of lower end of right radius, initial encounter for closed fracture (11/30/23) Fracture of unspecified carpal bone, right wrist, initial encounter for closed fracture (11/30/23) Fracture of unspecified carpal bone, unspecified wrist, initial encounter for closed fracture (11/30/23) Unspecified fall, initial encounter (11/30/23) Personal history of malignant neoplasm of breast (11/30/23) Subjective Subjective Having arm pain but no new complaints. Arm pain is not any worse than it had been previously. Objective Data Objective Data Vital Signs: Vital Signs Temp Pulse Resp BP Pulse Ox O2 Del Method O2 Flow Rate 36.6 C 63 16 111/58 L 94 Room Air 2.5 12/03/23 04:45 12/03/23 04:45 12/03/23 04:45 12/03/23 04:45 12/03/23 04:45 12/03/23 04:45 12/03/23 00:37 Oxygen Flow Rate (L/min) [4] 5 Oxygen Flow Rate (L/min) [3] 5 Oxygen Flow Rate (L/min) [2] 5 Oxygen Flow Rate (L/min) [1 ( 5 Initial Baseline)] Oxygen Flow Rate (L/min) 2.5 Oxygen Delivery Method [4] Nasal Cannula Oxygen Delivery Method [3] Nasal Cannula Oxygen Delivery Method [2] Nasal Cannula Oxygen Delivery Method [1 ( Nasal Cannula Initial Baseline)] Oxygen Delivery Method Room Air Weight: 80.2 kg Body Mass Index (BMI) 27.7 Intake & Output: Intake and Output for Last 24 Hours 12/01/23 12/02/23 12/03/23 23:59 23:59 23:59 Intake Total 1852 / 185 2202 / 2202 697 / 697 Balance 1852 / 185 2202 / 2202 697 / 697 Lab / Micro Data 12/01/23 05:14 12/01/23 05:14 Labs: Laboratory Results - last 24 hr 12/02/23 16:50: POC Glucose 109 H 12/02/23 20:43: POC Glucose 220 H Radiography Diagnostic Testing: Radiology Impression Elbow X-Ray 12/02/23 12:30 IMPRESSION: ORIF as described. Electronically Signed: Brian Garrett MD at 13:32 EDT Reading Location ID and State: [facility] later [facility] / [place] , Service support , Elbow X-Ray 12/02/23 13:08 IMPRESSION: Postsurgical changes without complications. Electronically Signed: Brian Garrett MD at 15:38 EDT Reading Location ID and State: [facility] / [place] , Service support , Wrist X-Ray 12/02/23 13:30 IMPRESSION: Intraoperative digital documentation views. Electronically Signed: Brian Garrett MD at 14:42 EDT Reading Location ID and State: [facility] / [place] , Service support , Wrist X-Ray 12/02/23 15:15 IMPRESSION: Volar plate and screw fixation in anatomic alignment without complications. Stable osteopenia with osteoarthritic changes. Electronically Signed: Brian Garrett MD at 15:44 EDT , Physical Exam Const alert and no apparent distress HEENT head/scalp atraumatic and moist oral mucous membranes Resp normal respiratory effort, no retractions, no use of accessory muscles and clear to auscultation bilaterally Cardio regular rate, regular rhythm, S1 normal heart sound and S2 normal heart sound GI normal to inspection, nondistended, normoactive bowel sounds and soft to palpation Extremity Extremity Narrative: Both arms casted. Left arm in sling. Neuro Sensorium / Orientation: awake and alert Assessment & Plan Assessment/Plan (1) Elbow fracture: QUALIFIERS: Encounter type: initial encounter Fracture type: closed Laterality: left Qualified Code(s): S42.402A - Unspecified fracture of lower end of left humerus, initial encounter for closed fracture (2) Wrist fracture: QUALIFIERS: Encounter type: initial encounter Fracture type: closed Laterality: right Qualified Code(s): S62.101A - Fracture of unspecified carpal bone, right wrist, initial encounter for closed fracture (3) Fall: QUALIFIERS: Encounter type: initial encounter Qualified Code(s): W19.XXXA - Unspecified fall, initial encounter (4) Head injury: QUALIFIERS: Encounter type: initial encounter Qualified Code(s): S09.90XA - Unspecified injury of head, initial encounter (5) Abrasion of forehead: QUALIFIERS: Encounter type: initial encounter Qualified Code(s): S00.81XA - Abrasion of other part of head, initial encounter PLAN: Plan Arm Fractures: s/p fall Left olecranon fracture with 2.5cm of distraction. Right distal radius with posterior angulation. Right distal ulna with minimal impaction 12/01: Open reduction internal fixation left olecranon fracture. Open reduction internal fixation right X reticular distal radius fracture 25-OH d level 55.2, no replacement necessary. Post-op plan per Dr. Ledesma: Patient be nonweightbearing x 6 weeks for both extremities. Right wrist splint will be removed at her 2-week postoperative visit. Left elbow splint can be taken off 1 week postoperatively to begin elbow range of motion. Will begin progressive weightbearing at 6 weeks with strengthening based on appropriate healing radiographically. Debility PT OT CM to assist on disposition Plan for SNF VTE prophylaxis - SCD's for now. Disposition: To residential facility pending insurance authorization. Charges/Coding Visit Charges Inpatient E&M: 93035 Subs Hosp L2
[2023-12-03 08:22] LABS: Hemoglobin A1c 5.7 % (3.8-5.6)
[2023-12-03] MEDS: Morphine 2 MG/ML Syringe IV (08:27)
[2023-12-03] MEDS: Celecoxib 200 MG Capsule PO (08:28)
[2023-12-03] MEDS: Cholecalciferol (Vit D3) 125 MCG CAPSULE (5,000 UNITS) PO (08:28)
[2023-12-03] MEDS: Aspirin E.C. 81 MG Tablet PO (08:28)
[2023-12-03] MEDS: Allopurinol 300 MG Tablet PO (08:28)
[2023-12-03] MEDS: Escitalopram Oxalate 20 MG Tablet PO (08:28)
[2023-12-03 08:59] LABS: Bedside Glucose 92 mg/dL (74-106)
--- NOTE | 2023-12-03 09:27 | PCM.PN.ORT ---
Subjective Subjective The patient was sitting in bed upon examination. Patient denies any chest pain, shortness of breath, dizziness, lightheadedness, nausea or vomiting, or calf pain. No adverse overnight events. Patient did sustain a mechanical fall fracturing her right wrist and left elbow. She also hit her head in which appropriate workup was done which was negative for any bleed. Patient states the pain has been adequately controlled on IV medications. Oxycodone order is in place per medicine. She will continue on her Tylenol and Celebrex. Patient denies any current numbness and tingling in bilateral upper extremities. Case management is currently on involved for appropriate discharge planning as patient will be nonweightbearing for 6 weeks postoperatively due to bilateral upper extremity fractures. Objective Data Objective Data Vital Signs: Vital Signs Temp Pulse Resp BP Pulse Ox O2 Del Method O2 Flow Rate 98.3 F 65 16 100/47 L 94 Nasal Cannula 2 12/03/23 08:16 12/03/23 08:16 12/03/23 08:16 12/03/23 08:16 12/03/23 08:16 12/03/23 08:16 12/03/23 08:16 Oxygen Flow Rate (L/min) [4] 5 Oxygen Flow Rate (L/min) [3] 5 Oxygen Flow Rate (L/min) [2] 5 Oxygen Flow Rate (L/min) [1 ( 5 Initial Baseline)] Oxygen Flow Rate (L/min) 2 Oxygen Delivery Method [4] Nasal Cannula Oxygen Delivery Method [3] Nasal Cannula Oxygen Delivery Method [2] Nasal Cannula Oxygen Delivery Method [1 ( Nasal Cannula Initial Baseline)] Oxygen Delivery Method Nasal Cannula Weight: 80.2 kg Body Mass Index (BMI) 27.7 Intake & Output: Intake and Output for Last 24 Hours 12/01/23 12/02/23 12/03/23 23:59 23:59 23:59 Intake Total 185 / 1853 2202 / 2202 697 / 697 Balance 1853 / 185 2202 / 2202 697 / 697 Lab / Micro Data 12/01/23 05:14 12/01/23 05:14 Labs: Laboratory Results - last 24 hr 12/01/23 05:14: Hemoglobin A1c 5.7 H 12/02/23 16:50: POC Glucose 109 H 12/02/23 20:43: POC Glucose 220 H 12/03/23 08:25: POC Glucose 92 Radiography Diagnostic Testing: Radiology Impression Elbow X-Ray 12/02/23 12:30 IMPRESSION: ORIF as described. Electronically Signed: Brian Garrett MD at 13:32 EDT Reading Location ID and State: [facility] / [place] , Service support , Elbow X-Ray 12/02/23 13:08 IMPRESSION: Postsurgical changes without complications. Electronically Signed: Brian Garrett MD at 15:38 EDT , Wrist X-Ray 12/02/23 13:30 IMPRESSION: Intraoperative digital documentation views. Electronically Signed: Brian Garrett MD at 14:42 EDT Reading Location ID and State: [facility] / [place] , Service support , Wrist X-Ray 12/02/23 15:15 IMPRESSION: Volar plate and screw fixation in anatomic alignment without complications. Stable osteopenia with osteoarthritic changes. Electronically Signed: Brian Garrett MD at 15:44 EDT , Physical Exam Narrative Vital signs stable and afebrile. Patient is currently on 2 L nasal oxygen. She states she does have history of asthma. Denies any shortness of breath Patient's right upper extremity currently has postoperative short arm splint. She does have swelling to the fingers. She was able to flex her fingers to this splint and perform full extension. With regards the patient's left upper extremity long-arm posterior splint is in place with sling. Patient does have swelling to the fingers. She was able to flex and extend her fingers fully. Capillary refill was unable to be performed due to nail [place] Sensation is intact to light touch to axillary, median, ulnar, radial distribution Motor intact with patient able to make okay sign, thumbs up, and cross fingers bilaterally. Const alert, oriented x3 and no apparent distress Assessment & Plan Assessment/Plan (1) Closed extraarticular fracture of distal end of right radius: (2) Displaced fracture of olecranon process of left ulna with intra-articular extension: PLAN: Plan 1. S/P open reduction internal fixation left olecranon fracture and open reduction and internal fixation right extra-articular distal radius fracture POD #1 2. Continue Pain Medications: Pain regimen will be continued per medicine. Do recommend Exer strength Tylenol 500 mg 2 tablets 3 times daily. Can supplement with oxycodone as needed for breakthrough pain. Patient is also currently on Celebrex. I did advise the patient on long-term use of nonsteroidal anti-inflammatories and making sure she is following with the primary care physician for appropriate lab work. Patient voiced understanding and agreement 3. PT/OT: Patient will be nonweightbearing for 6 weeks postoperatively on bilateral upper extremities. Patient will continue with the postoperative short arm splint for the right upper extremity for 2 weeks postoperatively. She can continue to work on finger range of motion with the right upper extremity as well as right elbow range of motion as tolerated. Patient will continue with the left elbow splint for 1 week postoperatively. After 1 week for the left elbow she can then begin working on gentle range of motion as tolerated. Progressive weightbearing at 6 weeks with strengthening will be based on appropriate healing radiographically on follow-ups with orthopedics. I do recommend elevation for swelling control. 4. Encouraged Incentive Spirometry 5. Continue postoperative medical treatment per medicine 6. Disposition: Patient appears to be doing well orthopedically. At this time we will sign off on patient from an orthopedic standpoint. I would continue pain regimen per medicine as above. Patient currently lives home alone and will require some postoperative assistance due to her restrictions. She has nonweightbearing on bilateral upper extremities for 6 weeks and will have very limited use due to the fractures and surgery. Case management is currently on board with appropriate and safe discharge planning. Patient will require 2-week follow-up with [facility] for x-rays of both the right wrist and left elbow. We will also remove sutures at the 2-week follow-up visit. If there are any concerns or questions from orthopedic standpoint please reach out to orthopedics. Appreciate the consultation. I have reviewed the [place] Automated Rx Reporting System (OARRS) report for this patient for refill pattern and other prescriber involvement as part of the appropriate surveillance for the provision of acute and chronic controlled medications. The report was requested and reviewed on the date of this entry and was considered in the prescribing process. This dictation was created using voice recognition software. Phonetic and/or grammatical errors may exist.
--- NOTE | 2023-12-03 09:36 | CASEMGMT ---
Social Work SW met with pt to discuss advance directives.? Pt confirms she has completed a living will and Health Care POA naming her friend Sharon Ly.? Pt notified that documents are not on file at [facility] and SW requested they be brought in for scanning into the EMR.? JAMES Buchanan
--- NOTE | 2023-12-03 09:37 | CASEMGMT ---
Social Work T[facility] is unable to accept pt due to insurance issues. [facility] is able to accept pt. SW requested precert be started at this time. SW met with pt and updated on SNF placement and pt expresses understanding and agreement. Plan: [facility], pending precert JAMES Buchanan
--- NOTE | 2023-12-03 09:51 | CASEMGMT ---
Per PA request, TERE URIBE called [facility] and spoke with Mariana, scheduled F/U appt in two weeks with Price Mobley December 15 at 9am.
[2023-12-03 11:33] LABS: Bedside Glucose 146 mg/dL (74-106)
[2023-12-03] MEDS: oxyCODONE 5 MG Tablet PO ×3 (12:53→20:53)
[2023-12-03 20:53] LABS: Bedside Glucose 128 mg/dL (74-106)
[2023-12-03] MEDS: Levothyroxine 112 MCG Tablet PO (20:53)
[2023-12-03] MEDS: Atorvastatin Calcium 20 MG Tablet PO (20:53)
[2023-12-03 21:56] LABS: Bedside Glucose 119 mg/dL (74-106)
[2023-12-04 06:00] VITALS: BMI 27.6
[2023-12-04] MEDS: Acetaminophen 325 MG Tablet 650 MG PO ×4 (06:12→20:38)
[2023-12-04 06:17] VITALS: BP 124/62; PULSE 79; RESP 16; TEMP 36.6; O2SAT 92
[2023-12-04 06:31] LABS: Bedside Glucose 85 mg/dL (74-106)
[2023-12-04] MEDS: oxyCODONE 5 MG Tablet PO ×2 (08:02→20:38)
[2023-12-04] MEDS: Aspirin E.C. 81 MG Tablet PO (08:05)
[2023-12-04] MEDS: Celecoxib 200 MG Capsule PO (08:05)
[2023-12-04] MEDS: Pantoprazole Sodium 20 MG Tablet PO (08:06)
[2023-12-04] MEDS: Escitalopram Oxalate 20 MG Tablet PO (08:06)
[2023-12-04] MEDS: Cholecalciferol (Vit D3) 125 MCG CAPSULE (5,000 UNITS) PO (08:06)
[2023-12-04] MEDS: Allopurinol 300 MG Tablet PO (08:06)
[2023-12-04] MEDS: Bisacodyl 5 MG Tablet 10 MG PO (08:10)
[2023-12-04 08:14] VITALS: BP 104/60; PULSE 62; RESP 16; TEMP 36.7; O2SAT 95
--- NOTE | 2023-12-04 08:40 | NURSING ---
This RN is aware of Morning Vital Signs and Assessment taken by Hetal CARRANZA at around 0814 this morning.
--- NOTE | 2023-12-04 11:03 | PN.HOSP_ITS ---
Reason for Visit Reason for Visit: Diagnoses Anemia, unspecified (11/30/23) Type 2 diabetes mellitus without complications (11/30/23) Mixed hyperlipidemia (11/30/23) Abrasion of other part of head, initial encounter (11/30/23) Unspecified injury of head, initial encounter (11/30/23) Unspecified fracture of lower end of left humerus, initial encounter for closed fracture (11/30/23) Unspecified fracture of lower end of unspecified humerus, initial encounter for closed fracture (11/30/23) Displaced fracture of olecranon process with intraarticular extension of left ulna, initial encounter for closed fracture (11/30/23) Other extraarticular fracture of lower end of right radius, initial encounter for closed fracture (11/30/23) Fracture of unspecified carpal bone, right wrist, initial encounter for closed fracture (11/30/23) Fracture of unspecified carpal bone, unspecified wrist, initial encounter for closed fracture (11/30/23) Unspecified fall, initial encounter (11/30/23) Personal history of malignant neoplasm of breast (11/30/23) Subjective Subjective Still with pain in left chest. Objective Data Objective Data Vital Signs: Vital Signs Temp Pulse Resp BP Pulse Ox O2 Del Method O2 Flow Rate 36.7 C 62 16 104/60 95 Room Air 2 12/04/23 08:14 12/04/23 08:14 12/04/23 08:14 12/04/23 08:14 12/04/23 08:14 12/04/23 08:14 12/03/23 13:18 Oxygen Flow Rate (L/min) [4] 5 Oxygen Flow Rate (L/min) [3] 5 Oxygen Flow Rate (L/min) [2] 5 Oxygen Flow Rate (L/min) [1 ( 5 Initial Baseline)] Oxygen Flow Rate (L/min) 2 Oxygen Delivery Method [4] Nasal Cannula Oxygen Delivery Method [3] Nasal Cannula Oxygen Delivery Method [2] Nasal Cannula Oxygen Delivery Method [1 ( Nasal Cannula Initial Baseline)] Oxygen Delivery Method Room Air Weight: 80 kg Body Mass Index (BMI) 27.6 Intake & Output: Intake and Output for Last 24 Hours 12/02/23 12/03/23 12/04/23 23:59 23:59 23:59 Intake Total 2202 / 2202 1217 / 1217 Balance 220 / 2202 1217 / 1217 Lab / Micro Data 12/01/23 05:14 12/01/23 05:14 Labs: Laboratory Results - last 24 hr 12/03/23 11:14: POC Glucose 146 H 12/03/23 16:52: POC Glucose 128 H 12/03/23 20:48: POC Glucose 119 H 12/04/23 06:11: POC Glucose 85 Physical Exam Const alert and no apparent distress HEENT head/scalp atraumatic and moist oral mucous membranes Resp normal respiratory effort, no retractions, no use of accessory muscles and clear to auscultation bilaterally Cardio regular rate, regular rhythm, S1 normal heart sound and S2 normal heart sound GI normal to inspection, nondistended, normoactive bowel sounds Extremity Extremity Narrative: arms casted. Assessment & Plan Assessment/Plan (1) Elbow fracture: QUALIFIERS: Encounter type: initial encounter Fracture type: c losed Laterality: left Qualified Code(s): S42.402A - Unspecified fracture of lower end of left humerus, initial encounter for closed fracture (2) Wrist fracture: QUALIFIERS: Encounter type: initial encounter Fracture type: c losed Laterality: right Qualified Code(s): S62.101A - Fracture of unspecified carpal bone, right wrist, initial encounter for closed fracture (3) Fall: QUALIFIERS: Encounter type: initial encounter Qualified Code(s): W19.XXXA - Unspecified fall, initial encounter (4) Head injury: QUALIFIERS: Encounter type: initial encounter Qualified Code(s): S09.90XA - Unspecified injury of head, initial encounter (5) Abrasion of forehead: QUALIFIERS: Encounter type: initial encounter Qualified Code(s): S00.81XA - Abrasion of other part of head, initial encounter PLAN: Plan Arm Fractures: * s/p fall * Left olecranon fracture with 2.5cm of distraction. Right distal radius with posterior angulation. Right distal ulna with minimal impaction * 12/01: Open reduction internal fixation left olecranon fracture. Open reduction internal fixation right X reticular distal radius fracture * 25-OH d level 55.2, no replacement necessary. * Post-op plan per Dr. Ledesma: Patient be nonweightbearing x 6 weeks for both extremities. Right wrist splint will be removed at her 2-week postoperative visit. Left elbow splint can be taken off 1 week postoperatively to begin elbow range of motion. Will begin progressive weightbearing at 6 weeks with strengthening based on appropriate healing radiographically. Debility * PT OT * CM to assist on disposition * Plan for SNF Chest pain * likely costochondritis/bruising post fall. * add lidoderm to chest VTE prophylaxis - SCD's for now. Disposition: To care home facility pending insurance authorization. Charges/Coding Visit Charges Inpatient E&M: 59965 Subs Hosp L2
[2023-12-04 11:29] LABS: Bedside Glucose 161 mg/dL (74-106)
[2023-12-04] MEDS: Insulin Lispro 100 UNIT/ML INSULN.PEN SC (12:50)
[2023-12-04] MEDS: Lidocaine 5% Patch 1 PATCH TOPICAL (13:03)
[2023-12-04 15:01] VITALS: BP 108/51; PULSE 73; RESP 18; TEMP 36.7; O2SAT 94
--- NOTE | 2023-12-04 17:07 | NURSING ---
This RN is aware of Vital Signs and focused assessment performed this afternoon by Hetal CARRANZA.
[2023-12-04 17:22] LABS: Bedside Glucose 100 mg/dL (74-106)
[2023-12-04] MEDS: Levothyroxine 112 MCG Tablet PO (20:37)
[2023-12-04] MEDS: Atorvastatin Calcium 20 MG Tablet PO (20:37)
[2023-12-04] MEDS: Magnesium Hydroxide 30 ML UDC PO (20:38)
[2023-12-04 21:04] VITALS: BP 113/68; PULSE 72; RESP 16; TEMP 36.8; O2SAT 94
[2023-12-04 23:28] LABS: Bedside Glucose 102 mg/dL (74-106)
[2023-12-05 01:42] VITALS: BMI 27.6
[2023-12-05 06:09] VITALS: BP 126/70; PULSE 72; RESP 16; TEMP 36.9; O2SAT 94
[2023-12-05 06:25] LABS: Bedside Glucose 91 mg/dL (74-106)
--- NOTE | 2023-12-05 07:22 | PN.HOSP_ITS ---
Reason for Visit Reason for Visit: Diagnoses Anemia, unspecified (11/30/23) Type 2 diabetes mellitus without complications (11/30/23) Mixed hyperlipidemia (11/30/23) Abrasion of other part of head, initial encounter (11/30/23) Unspecified injury of head, initial encounter (11/30/23) Unspecified fracture of lower end of left humerus, initial encounter for closed fracture (11/30/23) Unspecified fracture of lower end of unspecified humerus, initial encounter for closed fracture (11/30/23) Displaced fracture of olecranon process with intraarticular extension of left ulna, initial encounter for closed fracture (11/30/23) Other extraarticular fracture of lower end of right radius, initial encounter for closed fracture (11/30/23) Fracture of unspecified carpal bone, right wrist, initial encounter for closed fracture (11/30/23) Fracture of unspecified carpal bone, unspecified wrist, initial encounter for closed fracture (11/30/23) Unspecified fall, initial encounter (11/30/23) Personal history of malignant neoplasm of breast (11/30/23) Subjective Subjective Chest pain feeling better with the Lidoderm patch. Objective Data Objective Data Vital Signs: Vital Signs Temp Pulse Resp BP Pulse Ox O2 Del Method O2 Flow Rate 36.9 C 72 16 126/70 H 94 Room Air 2 12/05/23 06:09 12/05/23 06:09 12/05/23 06:09 12/05/23 06:09 12/05/23 06:09 12/05/23 06:09 12/03/23 13:18 Oxygen Flow Rate (L/min) [4] 5 Oxygen Flow Rate (L/min) [3] 5 Oxygen Flow Rate (L/min) [2] 5 Oxygen Flow Rate (L/min) [1 ( 5 Initial Baseline)] Oxygen Flow Rate (L/min) 2 Oxygen Delivery Method [4] Nasal Cannula Oxygen Delivery Method [3] Nasal Cannula Oxygen Delivery Method [2] Nasal Cannula Oxygen Delivery Method [1 ( Nasal Cannula Initial Baseline)] Oxygen Delivery Method Room Air Weight: 79.9 kg Body Mass Index (BMI) 27.6 Intake & Output: Intake and Output for Last 24 Hours 12/03/23 12/04/23 12/05/23 23:59 23:59 23:59 Intake Total 1217 / 1217 720 / 720 Balance 1217 / 1217 720 / 720 Lab / Micro Data 12/01/23 05:14 12/01/23 05:14 Labs: Laboratory Results - last 24 hr 12/04/23 11:09: POC Glucose 161 H 12/04/23 17:02: POC Glucose 100 12/04/23 23:09: POC Glucose 102 12/05/23 06:04: POC Glucose 91 Physical Exam Const alert and no apparent distress Constitutional Narrative: Up in bed. Eating breakfast. Nontoxic. Taken off of oxygen now. Resp normal respiratory effort and no retractions Extremity Extremity Narrative: Bilateral arms casted. Neuro Sensorium / Orientation: awake and alert Assessment & Plan Assessment/Plan (1) Elbow fracture: QUALIFIERS: Encounter type: initial encounter Fracture type: c losed Laterality: left Qualified Code(s): S42.402A - Unspecified fracture of lower end of left humerus, initial encounter for closed fracture (2) Wrist fracture: QUALIFIERS: Encounter type: initial encounter Fracture type: c losed Laterality: right Qualified Code(s): S62.101A - Fracture of unspecified carpal bone, right wrist, initial encounter for closed fracture (3) Fall: QUALIFIERS: Encounter type: initial encounter Qualified Code(s): W19.XXXA - Unspecified fall, initial encounter (4) Head injury: QUALIFIERS: Encounter type: initial encounter Qualified Code(s): S09.90XA - Unspecified injury of head, initial encounter (5) Abrasion of forehead: QUALIFIERS: Encounter type: initial encounter Qualified Code(s): S00.81XA - Abrasion of other part of head, initial encounter PLAN: Plan Arm Fractures: * s/p fall * Left olecranon fracture with 2.5cm of distraction. Right distal radius with posterior angulation. Right distal ulna with minimal impaction * 12/01: Open reduction internal fixation left olecranon fracture. Open reduction internal fixation right X reticular distal radius fracture * 25-OH d level 55.2, no replacement necessary. * Post-op plan per Dr. Ledesma: Patient be nonweightbearing x 6 weeks for both extremities. Right wrist splint will be removed at her 2-week postoperative visit. Left elbow splint can be taken off 1 week postoperatively to begin elbow range of motion. Will begin progressive weightbearing at 6 weeks with strengthening based on appropriate healing radiographically. Debility * PT OT * CM to assist on disposition * Plan for SNF Chest pain * Resolved * likely costochondritis/bruising post fall. * add lidoderm to chest VTE prophylaxis - SCD's for now. Disposition: To [facility] pending insurance authorization. Charges/Coding Visit Charges Inpatient E&M: 34604 Subs Hosp L1
[2023-12-05 08:24] VITALS: O2SAT 95
[2023-12-05] MEDS: oxyCODONE 5 MG Tablet PO (09:18)
[2023-12-05 09:20] VITALS: BP 136/72; PULSE 64; RESP 17; TEMP 37.1; O2SAT 96
[2023-12-05] MEDS: Aspirin E.C. 81 MG Tablet PO (09:28)
[2023-12-05] MEDS: Polyethylene Glycol 3350 17 GM PACKET PO (09:28)
[2023-12-05] MEDS: Cholecalciferol (Vit D3) 125 MCG CAPSULE (5,000 UNITS) PO (09:28)
[2023-12-05] MEDS: Escitalopram Oxalate 20 MG Tablet PO (09:28)
[2023-12-05] MEDS: Celecoxib 200 MG Capsule PO (09:28)
[2023-12-05] MEDS: Lidocaine 5% Patch 1 PATCH TOPICAL (09:29)
[2023-12-05] MEDS: Allopurinol 300 MG Tablet PO (09:29)
[2023-12-05 11:38] LABS: Bedside Glucose 108 mg/dL (74-106)
[2023-12-05] MEDS: Acetaminophen 325 MG Tablet 650 MG PO ×2 (12:25→18:35)
[2023-12-05 17:12] LABS: Bedside Glucose 100 mg/dL (74-106)
[2023-12-05 18:00] VITALS: BP 120/80; PULSE 69; RESP 16; TEMP 36.9; O2SAT 96
[2023-12-05 20:45] VITALS: BP 115/60; PULSE 78; RESP 16; TEMP 36.5; O2SAT 94
[2023-12-05] MEDS: Atorvastatin Calcium 20 MG Tablet PO (21:53)
[2023-12-05] MEDS: Magnesium Hydroxide 30 ML UDC PO (21:54)
[2023-12-05] MEDS: Levothyroxine 112 MCG Tablet PO (21:54)
[2023-12-05 22:18] LABS: Bedside Glucose 98 mg/dL (74-106)
[2023-12-06 05:00] VITALS: BP 106/56; PULSE 72; RESP 16; TEMP 36.8; O2SAT 92
[2023-12-06] MEDS: Acetaminophen 325 MG Tablet 650 MG PO ×3 (05:37→18:47)
[2023-12-06 06:00] VITALS: BMI 25.3
[2023-12-06 07:10] LABS: Bedside Glucose 95 mg/dL (74-106)
--- NOTE | 2023-12-06 07:45 | PN.HOSP_ITS ---
Reason for Visit Reason for Visit: Diagnoses Anemia, unspecified (11/30/23) Type 2 diabetes mellitus without complications (11/30/23) Mixed hyperlipidemia (11/30/23) Abrasion of other part of head, initial encounter (11/30/23) Unspecified injury of head, initial encounter (11/30/23) Unspecified fracture of lower end of left humerus, initial encounter for closed fracture (11/30/23) Unspecified fracture of lower end of unspecified humerus, initial encounter for closed fracture (11/30/23) Displaced fracture of olecranon process with intraarticular extension of left ulna, initial encounter for closed fracture (11/30/23) Other extraarticular fracture of lower end of right radius, initial encounter for closed fracture (11/30/23) Fracture of unspecified carpal bone, right wrist, initial encounter for closed fracture (11/30/23) Fracture of unspecified carpal bone, unspecified wrist, initial encounter for closed fracture (11/30/23) Unspecified fall, initial encounter (11/30/23) Personal history of malignant neoplasm of breast (11/30/23) Subjective Subjective Feeling well. No events. Objective Data Objective Data Vital Signs: Vital Signs Temp Pulse Resp BP Pulse Ox O2 Del Method O2 Flow Rate 36.8 C 72 16 106/56 L 92 Room Air 2 12/06/23 05:00 12/06/23 05:00 12/06/23 05:00 12/06/23 05:00 12/06/23 05:00 12/06/23 05:00 12/03/23 13:18 Oxygen Flow Rate (L/min) [4] 5 Oxygen Flow Rate (L/min) [3] 5 Oxygen Flow Rate (L/min) [2] 5 Oxygen Flow Rate (L/min) [1 ( 5 Initial Baseline)] Oxygen Flow Rate (L/min) 2 Oxygen Delivery Method [4] Nasal Cannula Oxygen Delivery Method [3] Nasal Cannula Oxygen Delivery Method [2] Nasal Cannula Oxygen Delivery Method [1 ( Nasal Cannula Initial Baseline)] Oxygen Delivery Method Room Air Weight: 73.3 kg Body Mass Index (BMI) 25.3 Intake & Output: Intake and Output for Last 24 Hours 12/04/23 12/05/23 12/06/23 23:59 23:59 23:59 Intake Total 720 / 720 760 / 760 Balance 720 / 720 760 / 760 Lab / Micro Data 12/01/23 05:14 12/01/23 05:14 Labs: Laboratory Results - last 24 hr 12/05/23 11:17: POC Glucose 108 H 12/05/23 16:50: POC Glucose 100 12/05/23 21:52: POC Glucose 98 12/06/23 06:45: POC Glucose 95 Physical Exam Const alert and no apparent distress Constitutional Narrative: Up in chair. Nontoxic. HEENT head/scalp atraumatic and moist oral mucous membranes Resp normal respiratory effort Extremity Extremity Narrative: Both arms casted. Psych affect normal Assessment & Plan Assessment/Plan (1) Elbow fracture: QUALIFIERS: Encounter type: initial encounter Fracture type: c losed Laterality: left Qualified Code(s): S42.402A - Unspecified fracture of lower end of left humerus, initial encounter for closed fracture (2) Wrist fracture: QUALIFIERS: Encounter type: initial encounter Fracture type: c losed Laterality: right Qualified Code(s): S62.101A - Fracture of unspecified carpal bone, right wrist, initial encounter for closed fracture (3) Fall: QUALIFIERS: Encounter type: initial encounter Qualified Code(s): W19.XXXA - Unspecified fall, initial encounter (4) Head injury: QUALIFIERS: Encounter type: initial encounter Qualified Code(s): S09.90XA - Unspecified injury of head, initial encounter (5) Abrasion of forehead: QUALIFIERS: Encounter type: initial encounter Qualified Code(s): S00.81XA - Abrasion of other part of head, initial encounter PLAN: Plan Arm Fractures: * s/p fall * Left olecranon fracture with 2.5cm of distraction. Right distal radius with posterior angulation. Right distal ulna with minimal impaction * 12/01: Open reduction internal fixation left olecranon fracture. Open reduction internal fixation right X reticular distal radius fracture * 25-OH d level 55.2, no replacement necessary. * Post-op plan per Dr. Ledesma: Patient be nonweightbearing x 6 weeks for both extremities. Right wrist splint will be removed at her 2-week postoperative visit. Left elbow splint can be taken off 1 week postoperatively to begin elbow range of motion. Will begin progressive weightbearing at 6 weeks with strengthening based on appropriate healing radiographically. Debility * PT OT * CM to assist on disposition * Plan for SNF Chest pain * Resolved * likely costochondritis/bruising post fall. * continue lidoderm to chest VTE prophylaxis - SCD's for now. [facility] Charges/Coding Visit Charges Inpatient E&M: 30574 Subs Hosp L1
[2023-12-06] MEDS: Polyethylene Glycol 3350 17 GM PACKET PO (10:19)
[2023-12-06] MEDS: Aspirin E.C. 81 MG Tablet PO (10:20)
[2023-12-06] MEDS: Cholecalciferol (Vit D3) 125 MCG CAPSULE (5,000 UNITS) PO (10:20)
[2023-12-06] MEDS: Allopurinol 300 MG Tablet PO (10:20)
[2023-12-06] MEDS: Escitalopram Oxalate 20 MG Tablet PO (10:20)
[2023-12-06] MEDS: Lidocaine 5% Patch 1 PATCH TOPICAL (10:20)
[2023-12-06] MEDS: Celecoxib 200 MG Capsule PO (10:22)
[2023-12-06] MEDS: Pantoprazole Sodium 20 MG Tablet PO (10:22)
[2023-12-06 11:00] VITALS: BP 108/62; PULSE 80; RESP 19; TEMP 36.8; O2SAT 99
[2023-12-06 12:41] LABS: Bedside Glucose 137 mg/dL (74-106)
[2023-12-06 17:00] VITALS: BP 107/60; PULSE 67; RESP 18; TEMP 36.8; O2SAT 97
[2023-12-06] MEDS: Bisacodyl 5 MG Tablet 10 MG PO (18:47)
[2023-12-06 19:02] LABS: Bedside Glucose 129 mg/dL (74-106)
[2023-12-06] MEDS: Atorvastatin Calcium 20 MG Tablet PO (21:54)
[2023-12-06] MEDS: Menthol/Lanolin/Calamine/Znox 113 GM Tube 1 APPLIC TOPICAL (21:54)
[2023-12-06 22:15] LABS: Bedside Glucose 110 mg/dL (74-106)
[2023-12-06 22:27] VITALS: BP 107/68; PULSE 67; RESP 16; TEMP 36.6; O2SAT 95
[2023-12-07 04:34] VITALS: BMI 25.4
[2023-12-07 06:30] VITALS: BP 135/81; PULSE 81; RESP 16; TEMP 36.6; O2SAT 94
[2023-12-07 07:30] VITALS: BP 115/77; PULSE 80; RESP 18; TEMP 36.8; O2SAT 98
[2023-12-07] MEDS: Acetaminophen 325 MG Tablet 650 MG PO ×2 (07:59→12:46)
--- NOTE | 2023-12-07 08:57 | PN.HOSP_ITS ---
Reason for Visit Reason for Visit: Diagnoses Anemia, unspecified (11/30/23) Type 2 diabetes mellitus without complications (11/30/23) Mixed hyperlipidemia (11/30/23) Abrasion of other part of head, initial encounter (11/30/23) Unspecified injury of head, initial encounter (11/30/23) Unspecified fracture of lower end of left humerus, initial encounter for closed fracture (11/30/23) Unspecified fracture of lower end of unspecified humerus, initial encounter for closed fracture (11/30/23) Displaced fracture of olecranon process with intraarticular extension of left ulna, initial encounter for closed fracture (11/30/23) Other extraarticular fracture of lower end of right radius, initial encounter for closed fracture (11/30/23) Fracture of unspecified carpal bone, right wrist, initial encounter for closed fracture (11/30/23) Fracture of unspecified carpal bone, unspecified wrist, initial encounter for closed fracture (11/30/23) Unspecified fall, initial encounter (11/30/23) Personal history of malignant neoplasm of breast (11/30/23) Subjective Subjective Feeling well. No new events. Objective Data Objective Data Vital Signs: Vital Signs Temp Pulse Resp BP Pulse Ox O2 Del Method O2 Flow Rate 36.6 C 81 16 135/81 H 94 Room Air 2 12/07/23 06:30 12/07/23 06:30 12/07/23 06:30 12/07/23 06:30 12/07/23 06:30 12/07/23 06:30 12/03/23 13:18 Oxygen Flow Rate (L/min) [4] 5 Oxygen Flow Rate (L/min) [3] 5 Oxygen Flow Rate (L/min) [2] 5 Oxygen Flow Rate (L/min) [1 ( 5 Initial Baseline)] Oxygen Flow Rate (L/min) 2 Oxygen Delivery Method [4] Nasal Cannula Oxygen Delivery Method [3] Nasal Cannula Oxygen Delivery Method [2] Nasal Cannula Oxygen Delivery Method [1 ( Nasal Cannula Initial Baseline)] Oxygen Delivery Method Room Air Weight: 73.5 kg Body Mass Index (BMI) 25.4 Intake & Output: Intake and Output for Last 24 Hours 12/05/23 12/06/23 12/07/23 23:59 23:59 23:59 Intake Total 760 / 760 840 / 840 Balance 760 / 760 840 / 840 Lab / Micro Data 12/01/23 05:14 12/01/23 05:14 Labs: Laboratory Results - last 24 hr 12/06/23 12:13: POC Glucose 137 H 12/06/23 18:44: POC Glucose 129 H 12/06/23 21:54: POC Glucose 110 H Physical Exam Const alert and no apparent distress HEENT head/scalp atraumatic and moist oral mucous membranes Extremity Extremity Narrative: arms casted. did not remove. Assessment & Plan Assessment/Plan (1) Elbow fracture: QUALIFIERS: Encounter type: initial encounter Fracture type: c losed Laterality: left Qualified Code(s): S42.402A - Unspecified fracture of lower end of left humerus, initial encounter for closed fracture (2) Wrist fracture: QUALIFIERS: Encounter type: initial encounter Fracture type: c losed Laterality: right Qualified Code(s): S62.101A - Fracture of unspecified carpal bone, right wrist, initial encounter for closed fracture (3) Fall: QUALIFIERS: Encounter type: initial encounter Qualified Code(s): W19.XXXA - Unspecified fall, initial encounter (4) Head injury: QUALIFIERS: Encounter type: initial encounter Qualified Code(s): S09.90XA - Unspecified injury of head, initial encounter (5) Abrasion of forehead: QUALIFIERS: Encounter type: initial encounter Qualified Code(s): S00.81XA - Abrasion of other part of head, initial encounter PLAN: Plan Arm Fractures: * s/p fall * Left olecranon fracture with 2.5cm of distraction. Right distal radius with posterior angulation. Right distal ulna with minimal impaction * 12/01: Open reduction internal fixation left olecranon fracture. Open reduction internal fixation right X reticular distal radius fracture * 25-OH d level 55.2, no replacement necessary. * Post-op plan per Dr. Ledesma: Patient be nonweightbearing x 6 weeks for both extremities. Right wrist splint will be removed at her 2-week postoperative visit. Left elbow splint can be taken off 1 week postoperatively to begin elbow range of motion. Will begin progressive weightbearing at 6 weeks with strengthening based on appropriate healing radiographically. Debility * PT OT * CM to assist on disposition * Plan for SNF Chest pain * Resolved * likely costochondritis/bruising post fall. * continue lidoderm to chest VTE prophylaxis - SCD's for now. [facility]
--- NOTE | 2023-12-07 09:26 | CASEMGMT ---
Social Work- SW called [facility]ADE[facility] Lakhani to follow up on pending precert. Lesvia will check on status and let LORA know if there have been any changes or if updates are needed. JAMES Mariee
[2023-12-07 10:00] VITALS: RESP 18
[2023-12-07] MEDS: Lidocaine 5% Patch 1 PATCH TOPICAL (10:23)
[2023-12-07] MEDS: Aspirin E.C. 81 MG Tablet PO (10:24)
[2023-12-07] MEDS: Cholecalciferol (Vit D3) 125 MCG CAPSULE (5,000 UNITS) PO (10:24)
[2023-12-07] MEDS: Escitalopram Oxalate 20 MG Tablet PO (10:25)
[2023-12-07] MEDS: Allopurinol 300 MG Tablet PO (10:25)
[2023-12-07] MEDS: Polyethylene Glycol 3350 17 GM PACKET PO (10:25)
[2023-12-07] MEDS: Celecoxib 200 MG Capsule PO (10:25)
--- NOTE | 2023-12-07 10:43 | TREXTCAR_ITS ---
Diet Diet Order/Speech Therapy: 12/03/23 01:12 Diet: Cardiac - Heart Healthy Dietary Modifications:: Cardiac / Heart Healthy Routine Orders/Code Status Routine Lab Work: CBC and BMP Code Status: Full Code Wound(s) LEFT ELBOW: Wound Type: Surgical Incision RIGHT WRIST: Wound Type: Surgical Incision LEFT WRIST: Wound Type: Surgical Incision Therapies Weight Bearing: Non weight bearing Extremity Affected:: Bilateral Upper Physical Therapy: Eval and Treat Occupational Therapy: Eval and Treat Problem/Diagnosis (1) Elbow fracture: Status: Acute Code(s): S42.409A - Unspecified fracture of lower end of unspecified humerus, initial encounter for closed fracture (2) Wrist fracture: Status: Acute Code(s): S62.109A - Fracture of unspecified carpal bone, unspecified wrist, initial encounter for closed fracture (3) Fall: Status: Acute Code(s): W19.XXXA - Unspecified fall, initial encounter (4) Head injury: Status: Acute Code(s): S09.90XA - Unspecified injury of head, initial encounter (5) Abrasion of forehead: Status: Acute Code(s): S00.81XA - Abrasion of other part of head, initial encounter Plan Arm Fractures: * s/p fall * Left olecranon fracture with 2.5cm of distraction. Right distal radius with posterior angulation. Right distal ulna with minimal impaction * /: Open reduction internal fixation left olecranon fracture. Open reduction internal fixation right X reticular distal radius fracture * 25-OH d level 55.2, no replacement necessary. * Post-op plan per Dr. Ledesma: Patient be nonweightbearing x 6 weeks for both extremities. Right wrist splint will be removed at her 2-week postoperative visit. Left elbow splint can be taken off 1 week postoperatively to begin elbow range of motion. Will begin progressive weightbearing at 6 weeks with strengthening based on appropriate healing radiographically. Debility * PT OT * CM to assist on disposition * Plan for SNF Chest pain * Resolved * likely costochondritis/bruising post fall. * continue lidoderm to chest VTE prophylaxis - SCD's for now. Disposition: To [facility] facility today Allergies/Procedures Done in Hospital Allergies house dust Allergy (Severe, Verified 08/25/23 09:25) Shortness of breath mold Allergy (Severe, Verified 08/25/23 09:25) Shortness of breath tree and shrub pollen Allergy (Severe, Verified 08/25/23 09:25) Shortness of breath Type of Care/Length of Stay Estimated LOS: Convalescent Care Less Than 30 days Type of Care Needed: Skilled Rehab Potential: Good Prognosis: Good Additional Orders/Day of Discharge Day of Discharge: 12/07/23 Dietary and Speech Recommendations Dietitian Recommendations/Changes: Continue Cardiac diet to manage medical conditions. Will add CCD diet if blood sugars ar not well controlled Discharge Plan Admission Admit Date/Time: 11/30/23 19:28 Primary Reason for Your Visit: right wrist and left elbow fracture Attending Provider: Slava Meza Primary Care Provider: Rosaura Hinton Consulting Providers: Raphael Marquis; John Ledesma Instructions Additional Instructions / Restrictions: Orthopedic restrictions: 1. Patient be nonweightbearing x 6 weeks for both extremities. Right wrist splint will be removed at her 2-week postoperative visit. Left elbow splint can be taken off 1 week postoperatively on December 10, 2023 to begin elbow range of motion. Will begin progressive weightbearing at 6 weeks with strengthening based on appropriate healing radiographically. Discharge Orders/Prescriptions Prescriptions: New acetaminophen 325 mg Tablet 650 mg PO Q4H PRN (Reason: Pain 1-5/10 or Fever) Qty: 0 0RF lidocaine 5 % Adhesive Patch,Medicated 1 patch topical DAILY Qty: 0 0RF Protocol: *Topical Application Instructions APPLICATION INSTRUCTIONS: left chest oxycodone 5 mg Tablet 5 mg PO Q4H PRN PRN (Reason: Pain Score 4-10) 3 Days Qty: 12 0RF bisacodyl [Dulcolax (bisacodyl)] 5 mg tablet,delayed release (DR/EC) 5 mg PO DAILY PRN (Reason: constipation) Qty: 30 0RF Continued cholecalciferol (vitamin D3) 125 mcg (5,000 unit) capsule 125 mcg PO DAILY levothyroxine 112 mcg tablet 112 mcg PO QHS Patient Comments: TAKE 1 TABLET BY MOUTH 6 DAYS A WEEK celecoxib [Celebrex] 200 mg capsule 200 mg PO DAILY allopurinol 300 mg tablet 300 mg PO DAILY metformin 500 mg tablet 500 mg PO BID Patient Comments: TAKE 1 TABLET BY MOUTH TWICE A DAY atorvastatin 20 mg tablet 20 mg PO DAILY dapagliflozin propanediol [Farxiga] 10 mg tablet 10 mg PO DAILY escitalopram oxalate 20 MG tablet 20 mg PO DAILY fluticasone propion-salmeterol [Advair Diskus] 250-50 mcg/dose Blister With Device 1 inh INHALATION Q12H omeprazole magnesium [Prilosec OTC] 20 mg Tablet,Delayed Release (Dr/Ec) 20 mg PO QODAY aspirin [Adult Aspirin Regimen] 81 mg tablet,delayed release (DR/EC) 81 mg PO DAILY Referrals / Follow Up: Rosaura Hinton DO [Primary Care Provider] - Within 2 Weeks Price Mobley PA-C [Med Staff - Adv Practice Prof] - 12/16/23 9:00 am Disposition Disposition (needs filled in before D/C Order can be placed): Sn[facility] Facility (1) Elbow fracture Qualifiers: Encounter type: initial encounter Fracture type: closed Laterality: left Qualified Code(s): S42.402A - Unspecified fracture of lower end of left humerus, initial encounter for closed fracture (2) Wrist fracture Qualifiers: Encounter type: initial encounter Fracture type: closed Laterality: right Qualified Code(s): S62.101A - Fracture of unspecified carpal bone, right wrist, initial encounter for closed fracture (3) Fall Qualifiers: Encounter type: initial encounter Qualified Code(s): W19.XXXA - Unspecified fall, initial encounter (4) Head injury Qualifiers: Encounter type: initial encounter Qualified Code(s): S09.90XA - Unspecified injury of head, initial encounter (5) Abrasion of forehead Qualifiers: Encounter type: initial encounter Qualified Code(s): S00.81XA - Abrasion of other part of head, initial encounter
--- NOTE | 2023-12-07 10:51 | DS.PCM_ITS ---
Providers Date of Admission: 11/30/23 Primary Care Physician: Dr. Rosaura Hinton, DO Consultations 12/01/23 00:15 Consult: Orthopedics Routine Consulting Provider: John Ledesma Reason for Consult: Right wrist fracture and Left elbow fracture after Fall. EMERGENT Consult: No MD Notified: Yes Date Notified: 12/01/23 Time Notified: 00:15 Method of Notification: Verbal Comments:: VIA AGENT Caity live RN has already talked with Reason For Visit: RIGHT WRIST FRACTURE AND LEFT ELBOW FRACTURE AFTER Diagnosis Discharge Diagnosis (1) Elbow fracture: Status: Acute Code(s): S42.409A - Unspecified fracture of lower end of unspecified humerus, initial encounter for closed fracture Qualifiers: Encounter type: initial encounter Fracture type: closed Laterality: l eft Qualified Code(s): S42.402A - Unspecified fracture of lower end of left humerus, initial encounter for closed fracture (2) Wrist fracture: Status: Acute Code(s): S62.109A - Fracture of unspecified carpal bone, unspecified wrist, initial encounter for closed fracture Qualifiers: Encounter type: initial encounter Fracture type: closed Laterality: r ight Qualified Code(s): S62.101A - Fracture of unspecified carpal bone, right wrist, initial encounter for closed fracture (3) Fall: Status: Acute Code(s): W19.XXXA - Unspecified fall, initial encounter Qualifiers: Encounter type: initial encounter Qualified Code(s): W19.XXXA - Unspecified fall, initial encounter (4) Head injury: Status: Acute Code(s): S09.90XA - Unspecified injury of head, initial encounter Qualifiers: Encounter type: initial encounter Qualified Code(s): S09.90XA - Unspecified injury of head, initial encounter (5) Abrasion of forehead: Status: Acute Code(s): S00.81XA - Abrasion of other part of head, initial encounter Qualifiers: Encounter type: initial encounter Qualified Code(s): S00.81XA - Abrasion of other part of head, initial encounter Plan Arm Fractures: * s/p fall * Left olecranon fracture with 2.5cm of distraction. Right distal radius with posterior angulation. Right distal ulna with minimal impaction * 6/5: Open reduction internal fixation left olecranon fracture. Open reduction internal fixation right X reticular distal radius fracture * 25-OH d level 55.2, no replacement necessary. * Post-op plan per Dr. Ledesma: Patient be nonweightbearing x 6 weeks for both extremities. Right wrist splint will be removed at her 2-week postoperative visit. Left elbow splint can be taken off 1 week postoperatively to begin elbow range of motion. Will begin progressive weightbearing at 6 weeks with strengthening based on appropriate healing radiographically. Debility * PT OT * CM to assist on disposition * Plan for SNF Chest pain * Resolved * likely costochondritis/bruising post fall. * continue lidoderm to chest VTE prophylaxis - SCD's for now. Disposition: To [facility] facility today Medications at Discharge Home Medications escitalopram oxalate 20 mg tablet 20 mg PO DAILY 12/30/19 cholecalciferol (vitamin D3) 125 mcg (5,000 unit) capsule 125 mcg PO DAILY 06/27/20 levothyroxine 112 mcg tablet 112 mcg PO QHS 06/27/20 allopurinol 300 mg tablet 300 mg PO DAILY 06/25/21 celecoxib 200 mg capsule (Celebrex) 200 mg PO DAILY 06/25/21 metformin 500 mg tablet 500 mg PO BID 07/10/22 aspirin 81 mg tablet,delayed release (Adult Aspirin Regimen) 81 mg PO DAILY 08/04/22 fluticasone 250 mcg-salmeterol 50 mcg/dose blistr powdr for inhalation (Advair Diskus) 1 inh inhalation Q12H 10/14/22 omeprazole magnesium 20 mg tablet,delayed release (Prilosec OTC) 20 mg PO QODAY 10/14/22 atorvastatin 20 mg tablet 20 mg PO DAILY 08/25/23 dapagliflozin propanediol 10 mg tablet (Farxiga) 10 mg PO DAILY 08/25/23 acetaminophen 325 mg tablet 650 mg (2 x 325 mg) PO Q4H PRN Pain 1-5/10 or Fever #0 tabs 12/07/23 bisacodyl 5 mg tablet,delayed release (Dulcolax (bisacodyl)) 5 mg PO DAILY PRN constipation #30 tabs 12/07/23 lidocaine 5 % topical patch 1 patch topical DAILY #0 ea 12/07/23 oxycodone 5 mg tablet 5 mg PO Q4H PRN PRN Pain Score 4-10 3 days #12 tabs 12/07/23 Hospital Course Operations - (1. Open reduction internal fixation left olecranon fracture 2. Open reduction internal fixation right X reticular distal radius fracture) Summary of Care Provided Minutes Spent on Discharge: 32 Hospital Course: Patient had fall and had a left olecranon fracture with displacement and right distal radial and ulnar fracture. Patient underwent ORIF of those on the fifth. Patient did well though her issue was complicated by some chest pain. Chest pain was likely due to the fall causing costochondritis. Patient did have a Lidoderm patch which seemed to help. Given the patient's bilateral upper extremity fractures, she is not weightbearing in those extremities. [facility] be going to [facility] facility[facility] to [facility], in stable condition. Weight / BMI Weight Weight: 73.5 kg Body Mass Index (BMI) 25.4 ABG / Lab / Microbiology Data 12/01/23 05:14 12/01/23 05:14 Laboratory: Laboratory Results - last 24 hr 12/06/23 12:13: POC Glucose 137 H 12/06/23 18:44: POC Glucose 129 H 12/06/23 21:54: POC Glucose 110 H D/C Instructions Discharge Diet: No restrictions Meaningful Use Info Meaningful Use Meaningful Use Diagnoses (Choose all that apply): None applicable Ischemic Stroke Statin Dosing Therapy Reference: STATIN DOSE THERAPY REFERENCE: * Patients > 75 years receive moderate or high dose statin therapy. * Patients 75 years or YOUNGER should receive HIGH intensity statin dose unless contraindicated. You will be required to document reason for non-treatment if statin daily dose does not meet guidelines. HIGH DOSE STATIN THERAPY DAILY Atorvastatin > than or = to 40 mg Rosuvastatin > than or = to 20 mg Amlodipine + Atorvastatin > than or = to 2.5/40 mg Ezetimibe + Simvastatin 10/80 mg Simvastatin 80mg Discharge Plan Admission Admit Date/Time: 11/30/23 19:28 Primary Reason for Your Visit: right wrist and left elbow fracture Attending Provider: Slava Meza Primary Care Provider: Rosaura Hinton Consulting Providers: Raphael Marquis; John Ledesma Instructions Additional Instructions / Restrictions: Orthopedic restrictions: 1. Patient be nonweightbearing x 6 weeks for both extremities. Right wrist splint will be removed at her 2-week postoperative visit. Left elbow splint can be taken off 1 week postoperatively on December 10, 2023 to begin elbow range of motion. Will begin progressive weightbearing at 6 weeks with strengthening based on appropriate healing radiographically. Discharge Orders/Prescriptions Prescriptions: New acetaminophen 325 mg Tablet 650 mg PO Q4H PRN (Reason: Pain 1-5/10 or Fever) Qty: 0 0RF lidocaine 5 % Adhesive Patch,Medicated 1 patch topical DAILY Qty: 0 0RF Protocol: *Topical Application Instructions APPLICATION INSTRUCTIONS: left chest oxycodone 5 mg Tablet 5 mg PO Q4H PRN PRN (Reason: Pain Score 4-10) 3 Days Qty: 12 0RF bisacodyl [Dulcolax (bisacodyl)] 5 mg tablet,delayed release (DR/EC) 5 mg PO DAILY PRN (Reason: constipation) Qty: 30 0RF Continued cholecalciferol (vitamin D3) 125 mcg (5,000 unit) capsule 125 mcg PO DAILY levothyroxine 112 mcg tablet 112 mcg PO QHS Patient Comments: TAKE 1 TABLET BY MOUTH 6 DAYS A WEEK celecoxib [Celebrex] 200 mg capsule 200 mg PO DAILY allopurinol 300 mg tablet 300 mg PO DAILY metformin 500 mg tablet 500 mg PO BID Patient Comments: TAKE 1 TABLET BY MOUTH TWICE A DAY atorvastatin 20 mg tablet 20 mg PO DAILY dapagliflozin propanediol [Farxiga] 10 mg tablet 10 mg PO DAILY escitalopram oxalate 20 MG tablet 20 mg PO DAILY fluticasone propion-salmeterol [Advair Diskus] 250-50 mcg/dose Blister With Device 1 inh INHALATION Q12H omeprazole magnesium [Prilosec OTC] 20 mg Tablet,Delayed Release (Dr/Ec) 20 mg PO QODAY aspirin [Adult Aspirin Regimen] 81 mg tablet,delayed release (DR/EC) 81 mg PO DAILY Referrals / Follow Up: Rosaura Hinton DO [Primary Care Provider] - Within 2 Weeks Price Mobley PA-C [Med Staff - Adv Practice Prof] - 12/16/23 9:00 am Disposition Disposition (needs filled in before D/C Order can be placed): Custodial Facility Charges/Coding Visit Charges Inpatient E&M: 45011 Disch Hosp >30min
--- NOTE | 2023-12-07 12:06 | PHA.DC.MR.R ---
Pharmacy [place] Med Reconciliation Pharmacy Service has performed discharge medication reconciliation for this patient upon transfer to [facility] The patient's discharge medication list was reviewed for discrepancies and discrepancies were resolved. Medications at Discharge Home Medications escitalopram oxalate 20 mg tablet 20 mg PO DAILY 12/30/19 cholecalciferol (vitamin D3) 125 mcg (5,000 unit) capsule 125 mcg PO DAILY 06/27/20 levothyroxine 112 mcg tablet 112 mcg PO QHS 06/27/20 allopurinol 300 mg tablet 300 mg PO DAILY 06/25/21 celecoxib 200 mg capsule (Celebrex) 200 mg PO DAILY 06/25/21 metformin 500 mg tablet 500 mg PO BID 07/10/22 aspirin 81 mg tablet,delayed release (Adult Aspirin Regimen) 81 mg PO DAILY 08/04/22 fluticasone 250 mcg-salmeterol 50 mcg/dose blistr powdr for inhalation (Advair Diskus) 1 inh inhalation Q12H 10/14/22 omeprazole magnesium 20 mg tablet,delayed release (Prilosec OTC) 20 mg PO QODAY 10/14/22 atorvastatin 20 mg tablet 20 mg PO DAILY 08/25/23 dapagliflozin propanediol 10 mg tablet (Farxiga) 10 mg PO DAILY 08/25/23 acetaminophen 325 mg tablet 650 mg (2 x 325 mg) PO Q4H PRN Pain 1-5/10 or Fever #0 tabs 12/07/23 bisacodyl 5 mg tablet,delayed release (Dulcolax (bisacodyl)) 5 mg PO DAILY PRN constipation #30 tabs 12/07/23 lidocaine 5 % topical patch 1 patch topical DAILY #0 ea 12/07/23 oxycodone 5 mg tablet 5 mg PO Q4H PRN PRN Pain Score 4-10 3 days #12 tabs 12/07/23
--- NOTE | 2023-12-07 12:07 | CASEMGMT ---
Social Work Precert has been obtained.? Physician updated and pt is ready for discharge today.? 7000 convalescent form completed in [facility] and sent along with discharge orders to [facility] via [facility].? Transportation arranged with Physician ambulance for 1:00pm pickup via wheelchair van.? SW met with pt and they are agreeable to discharge plan as stated above.? Bedside nurse notified of discharge time. JAMES Benavidez
[2023-12-07] MEDS: Menthol/Lanolin/Calamine/Znox 113 GM Tube 1 APPLIC TOPICAL (12:14)
[2023-12-07 12:58] VITALS: BP 122/80; PULSE 76; RESP 18; TEMP 37.1; O2SAT 99
[2023-12-08 02:27] LABS: Bedside Glucose 95 mg/dL (74-106)
== END 2023-12-07 13:02 | disposition skilled nursing facility (03) | DRG 511 ==
LOC: ED 16:32 → MS3 20:11
PROVIDERS: Anesthesiology; Specialist; Admitting Provider Internal Medicine; Emergency Provider Emergency Medicine; PCP Internal Medicine
PROC: 0PSH04Z Reposition Right Radius with Internal Fixation Device, Open Approach (ICD-10-PCS; principal; 2023-12-02 10:45)
PROC: 0PSH04Z Reposition Right Radius with Internal Fixation Device, Open Approach (ICD-10-PCS; 2023-12-02 10:45)
DX: S52.501A Unspecified fracture of the lower end of right radius, initial encounter for closed fracture (principal); S42.402A Unspecified fracture of lower end of left humerus, initial encounter for closed fracture; S09.90XA Unspecified injury of head, initial encounter; E11.40 Type 2 diabetes mellitus with diabetic neuropathy, unspecified; E03.9 Hypothyroidism, unspecified; D64.9 Anemia, unspecified; E66.3 Overweight; F32.A Depression, unspecified; I10 Essential (primary) hypertension; K44.9 Diaphragmatic hernia without obstruction or gangrene; S62.101A Fracture of unspecified carpal bone, right wrist, initial encounter for closed fracture; K21.9 Gastro-esophageal reflux disease without esophagitis; S00.81XA Abrasion of other part of head, initial encounter; E78.2 Mixed hyperlipidemia; S52.032A Displaced fracture of olecranon process with intraarticular extension of left ulna, initial encounter for closed fracture; W19.XXXA Unspecified fall, initial encounter; M1A.9XX0 Chronic gout, unspecified, without tophus (tophi); Z79.51 Long term (current) use of inhaled steroids; R53.81 Other malaise; M94.0 Chondrocostal junction syndrome [Tietze]; Z85.3 Personal history of malignant neoplasm of breast; Z68.28 Body mass index [BMI] 28.0-28.9, adult
CPT/HCPCS: 36415; 70450; 72125; 73070; 73100; 73110; 76000; 80048; 80053; 82306; 82962; 83036; 83735; 84100; 84443; 85025; 85610; 85730; 86850; 86900; 86901; 93005; 94640; 94668; 97116; 97162; 97166; 97530; 97535; 99285; C1713; J7030; J7120; A4216; J2405

== ENCOUNTER 2024-01-12 09:00 | Outpatient (RCR) | payer OTHER, SELFPAY ==
--- NOTE | 2023-12-23 13:52 | HP.PTEVAL ---
Patient's Visit Information Visit Information Visit Information: LAMAR ROMEO is a 68 year old F referred to Physical Therapy by Merrick Mobley PA-C with a diagnosis of L fx distal radius, fx R olecranon surgery fixed in early November. Date of Evaluation: 12/23/23 Physical Therapist: Slava Dumont, DPT, OCS, CSCS Visit Plan Frequency: 1x/Week Duration: 4-6 Weeks Plan: f/u 3 weeks to ensure improving ROM L wrist and r elbow. Pt wishes to see Dr. Arana and Dr. Sanchez regarding neuropathy in feet and options with that. i educated her on balance deficits today but wishes to hold on balance treatment until sees doctor and will let me know if she wishes to pursue. otherwise f/u weekly to every 3 for ROM assurances adn strengthening when allowed by doctor. Current order is for ROM only in UE and no WB Subjective Subjective: goes by [employer]( R wrist broken, plate in L wrist. L elbow broken.Pin in L elbow [place] and surgery on the , in hospital until 10 and in [place] until around 12/18/23. Home 5 days a week ago. Going well. Fell but not sure why. May have drop foot on R. Has fallen previously in 2021 with knee cap and R elbow fractures and L wrist fxs. typically is very careful and steady. No spinning. Neuropathy in feet from unknown reason, did have NCT and showed neuropathy. Dr. Hinton checking blood sugar. No pain. Sleeping is good. ROM is good. HEP : ROM to LE adn UE. Employed [employer] work. 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 No trouble typing. Hobbies: Dog walking, avoiding it b./c she might pull her. Objective Objective: Walks with slight neuropathic gait pattern but I, trasnfers I, steps with one rail and avoids forefoot WB but I. reciprocal movements coordination at deficit in B LE, sensation diminished to light touch medial R foot. reflexes 1/3 patella adn achilles B. strength is 3+ R DF and 4- L, other ankles 4-, knees 4- and hips 3+ B. Obvious weakness in R DF compared to L. UE: shoulder and scap and neck AROM WFL and painfree. Incisions R wrist and L elbow healed well and minimal scar tissue palpable. R wrist extension mildly limited at 20 on R vs 23 on L, other wrist ROM symmetrical. pronation and supination are 80/90 B without asymmetries. Elbow flexion is full B, extension is -3 on L and 0 on R. Very slight loss L elbow extension. Funcitonal in UE and no problems with ADLs. Balance/Special Test Scores Functional Gait Assessment Score: 26 % Disability: 13.3400 CATSIB Score (Max score 120 seconds): 90 Quick DASH Score: 18.1800 Goals Goal 1:: full L elbow extension adn full R wrist extension without pain Goal Time Frame: 2-4 Weeks Goal 2:: I appropriate HEp to further healing when allowed by doctor Goal Time Frame: 4-6 Weeks Goal 3:: walk dog confidently when allowed by doctor Goal Time Frame: 4-6 Weeks Rehabilitation Potential Physical Therapy Diagnosis: slight loss of ROM and balance deficits Rehabilitation Potential: Good Anticipated Interventions Patient/Client Instruction: Educate patient on: Condition and Plan of Care For the Purpose of:: To increase ROM Therapeutic Exercise to Include: Strength training, Balance training, Passive ROM and Active ROM For the Purpose of:: To increase ROM, To improve nutrient delivery to tissue and To improve safety Other: balance if desired. Text: Thank you for the opportunity to evaluate your patient. For Medicare and Medicare HMO plans, please review the plan of care and approve it. It will need to be FAXED BACK to us at [phone] for Medicare purposes. For Medicare only, by signing this I certify the plan of care. Please let me know if there are questions or concerns regarding this plan of care. Physician Signature: Date:
--- NOTE | 2024-02-04 12:07 | HP.PT.NRP ---
Patient Information Patient Information: LAMAR ROMEO was seen in my office for initial evaluation on 12/23/23. The following Plan of Care was established for this patient: POC Established Initial Frequency: 1x/Week Initial Duration: 4-6 Weeks Anticipated Interventions Patient/Client Instruction: Educate patient on: Condition and Plan of Care For the Purpose of:: To increase ROM Therapeutic Exercise to Include: Strength training, Balance training, Passive ROM and Active ROM For the Purpose of:: To increase ROM, To improve nutrient delivery to tissue and To improve safety Other: balance if desired. Last Seen Last Seen: This patient was last seen in our office . Pertinent comments regarding their Physical therapy will appear below: Patient is reports that she has no issues with her upper extremities. She is appropriate for d/c At this point I will be discontinuing this patient from physical therapy. I would be happy to see this patient again in the future if found appropriate by the physician. Thank you! Tamia Hare, DPT Balance/Gait/Functional tests Balance/Special Test Scores Functional Gait Assessment Score: 26 % Disability: 13.3400 CATSIB Score (Max score 120 seconds): 90 Quick DASH Score: 18.1800
== END 2024-01-12 19:00 | disposition home or self-care (01) ==
LOC: PT 09:00
PROVIDERS: PCP Internal Medicine; Referring Provider Physician Assistant Surgical; Visit Provider Physician Assistant Surgical
DX: M21.379 Foot drop, unspecified foot (principal); R26.89 Other abnormalities of gait and mobility; S52.551D Other extraarticular fracture of lower end of right radius, subsequent encounter for closed fracture with routine healing; S52.032D Displaced fracture of olecranon process with intraarticular extension of left ulna, subsequent encounter for closed fracture with routine healing
CPT/HCPCS: 97162; 97530

== ENCOUNTER 2024-02-01 12:11 | Outpatient (RCR) | payer SELFPAY | END 2024-02-27 23:59 | LOC: NS 12:11 | PROVIDERS: PCP Internal Medicine | DX: Z71.3 Dietary counseling and surveillance (principal) ==

== ENCOUNTER → 2024-03-18 | Outpatient (CLI) | payer OTHER, SELFPAY ==
[2024-03-18 11:34] LABS: Creatinine, Serum 0.61 mg/dL (0.55-1.02); EST Glomerular Filtration Rate 103 mL/min (>60); Est Glom Filt Rate - Afr Amer 125 mL/min (>60)
== END | disposition home or self-care (01) ==
LOC: LAB 10:10
PROVIDERS: PCP Internal Medicine; Referring Provider Physician Assistant; Visit Provider Physician Assistant
DX: N28.9 Disorder of kidney and ureter, unspecified (principal)
CPT/HCPCS: 36415; 82565

== ENCOUNTER 2025-04-27 07:00 | Outpatient (RCR) | payer OTHER, SELFPAY ==
--- NOTE | 2025-04-03 07:41 | HP.PTEVAL ---
Patient's Visit Information Visit Information Visit Information: LAMAR ROMEO is a 70 year old F referred to Physical Therapy by Dr. Jeannine Sanchez DPM with a diagnosis of unstable gait, peipheral neuropathy,drop foot. Date of Evaluation: 03/31/25 Physical Therapist: Slava Dumont DPT, OCS, CSCS Visit Plan Frequency: 1-2x/wk Duration: 6 Weeks Plan: 2x/wk for 6 wks with pt's goal to focus on HEP and decrease down to 1x/wk when appropriate. bilat hip ROM and LE flexibilty and strengthening, balance tasks progressing from stable to uneven surfaces as able as pt likes to walk her dog outside. POC transferred to staff physical therapist post evaluation. Subjective Subjective: Pt is 70 y.o. female referred to physical therapy for unstable gait, peripheral neuropathy and drop foot by Dr. Jeannine Sanchez. Pt reports long hx of balance issues due to drop foot and bony changes in feet. Reports multiple fall hx resulting in patellar fx and bilat UE fxs last year. Denies falls in last 6 months but states she gets PTSD after her last fall when she has to step up on curbs. Complains of difficulty walking and feels unsteady with gait. Walks her dog daily up hills and wants to improve her stability with walking. Hx of chronic back/R hip intermittent pain and peripheral neuropathy. Denies changes to B/B. Was at PT at last year for bilat wrist fractures and was instructed to purchase bilat ankle braces to help with drop foot, feels they help. Also has orthotics but states it hurt her feet when she wears both at the same time. Current complaints resulting in difficulty getting in out/car, has to steady self before moving after sit to stand, slow moving at night-- Sliding feet at night vs. stepping. Difficulty getting out of tub. Denies difficulty with reciprocal stair negotiation with rail. Pt demonstrates with generalized R> L weakness and decreased bilat hip flexion resulting in decreased step height with amb with decreased foot clearance and difficulty transitioning from low surfaces. Pt with bony deformity of bilat feet resulting in end range pronation in standing affecting compensatory patterns on uneven surfaces. Objective Objective: Symmetrical light touch bilat LE Min-mod hamstring and quad restriction bilat. Generalized tightness/stiffness bilat LE. Bilat hip flexion PROM ~ 100 deg AROM: R knee ext 3 deg, L knee ext WNL R DF 4 deg, L DF 3 deg PROM: R DF 10 deg, L DF 9 deg MMT : R hip flexion 4-/5, R hip ext 4/5, R hip abduction 4-/5, R DF 2+/5, R eversion 4-/5, R GTE 1/5, R PF 3/5 L PF 3+/5, L hip ext 4/5 Static standing--max pronation bilat with dropped navicular. Pt wears brace bilat ankles for drop foot. Balance/Special Test Scores Functional Gait Assessment Score: 14 % Disability: 53.3400 Lower Extremity Functional Score: 40 TUG Test Time Seconds: 9.8 30 Second Chair Rise Test Seconds: 10 Goals Goal 1:: Pt will demonstrate improve 30 sec STS by 3 reps to demonstrate improved LE strength with ADL tasks. Goal Time Frame: 4-6 Weeks Goal 2:: Pt will demonstrate improved Functional gait assessment score by 10% to demonstrate decreased fall risk with community mobility. Goal Time Frame: 4-6 Weeks Goal 3:: Pt will be indep with HEP to improve LE strength and flexibility. Goal Time Frame: 4-6 Weeks Goal 4:: Pt will be able to complete sit to stand transfers without Ue assist x 5 reps with no LOB from various surfaces to demonstrate improved LE strength. Goal Time Frame: 4-6 Weeks Rehabilitation Potential Physical Therapy Diagnosis: Difficulty walking Rehabilitation Potential: Good Anticipated Interventions Patient/Client Instruction: Educate patient on: Condition and Plan of Care For the Purpose of:: To increase ROM, To increase flexibility/ROM, To improve safety with gait, To improve safety and To prevent re-injury Therapeutic Exercise to Include: Strength training, Balance training, Postural training, Flexibilty training, Gait and locomotor training, Passive ROM and Active ROM Comment: Limited bilat hip flexion and needs increased foot clearance due to bilat DF. For the Purpose of:: To increase ROM, To improve ability of physical actions for home/community/work/leisure, To improve gait and locomotor functions, To improve balance, To improve safety with gait and To improve safety Functional Training to Include: Gait training For the Purpose of:: To improve gait and locomotor functions, To improve balance and To improve safety with gait Manual Therapy Techniques to Include: Mobilization and Passive ROM For the Purpose of:: To increase ROM and To increase flexibility/ROM Text: Thank you for the opportunity to evaluate your patient. For Medicare and Medicare HMO plans, please review the plan of care and approve it. It will need to be FAXED BACK to us at [phone] for Medicare purposes. For Medicare only, by signing this I certify the plan of care. Please let me know if there are questions or concerns regarding this plan of care. Physician Signature: Date:
--- NOTE | 2025-04-27 07:45 | HP.PTDCSUM ---
Discharge Summary D/C summary: It has been my pleasure to treat LAMAR ROMEO referred by Dr. Jeannine Sanchez DPM, with the diagnosis of unstable gait, peipheral neuropathy,drop foot for a total of 9 visit(s). Discharge Date: 04/27/25 Please see the following information for a summary of their discharge status. Subjective Subjective: Pt. is here today for her recheck with PT. Pt. reports overall doing much better. Overall Improvement % Improvement: 90 Objective Objective/Function: TU.9sec no AD Pt. is walking much better, no catching his feet. Pt. is walking much better at home with her dog. No falls reported. Pt. is pleased with her hip mobility. She reports being ready to be done with PT at this point in time. Goals Goal 1:: Pt will demonstrate improve 30 sec STS by 3 reps to demonstrate improved LE strength with ADL tasks. Goal Progress: Goal Met Goal 2:: Pt will demonstrate improved Functional gait assessment score by 10% to demonstrate decreased fall risk with community mobility. Goal Progress: Goal Met Goal 3:: Pt will be indep with HEP to improve LE strength and flexibility. Goal Progress: Goal Met Goal 4:: Pt will be able to complete sit to stand transfers without Ue assist x 5 reps with no LOB from various surfaces to demonstrate improved LE strength. Goal Progress: Goal Met Plan Plan: Pt. to be DC from PT at this point in time. Pt. has met all goals. D/C Information Discharge Comments: Pt. has met all goals and will be DC from PT at this point in time. d/c sentence: If there are questions or concerns regarding this patient's physical therapy, please feel free to call me at [phone]. Thank you for the referral of this patient. Sincerely, Collin Tracey, DPT Balance/Gait/Functional tests Balance/Special Test Scores Functional Gait Assessment Score: 27 % Disability: 10.0000 Lower Extremity Functional Score: 59 TUG Test Time Seconds: 7.9 Tug Test: <10 sec.=free mobile 30 Second Chair Rise Test Seconds: 13 Improvement % Improvement: 90
== END 2025-04-27 19:00 | disposition home or self-care (01) ==
LOC: PT 07:00
PROVIDERS: PCP Internal Medicine; Referring Provider Podiatrist; Visit Provider Podiatrist
DX: R26.9 Unspecified abnormalities of gait and mobility (principal); G62.9 Polyneuropathy, unspecified; M21.379 Foot drop, unspecified foot
CPT/HCPCS: 97110; 97162; 97530